=== PATIENT | female | born 1935 | race Caucasian/White ===

== ENCOUNTER 2023-06-02 11:22 | Emergency (ER) | payer MEDICARE, OTHER, SELFPAY ==
[2023-06-02 11:29] VITALS: BP 122/53; PULSE 67; RESP 18; O2SAT 95; BMI 23.5
--- NOTE | 2023-06-02 11:38 | ED.FALL ---
HPI - Fall General Chief Complaint: Fall Stated Complaint: R SIDED PAIN FALL EARLIER THIS WEEK Time Seen by Provider: 06/02/23 11:25 Source: patient and EMS Mode of arrival: EMS Limitations: no limitations History of Present Illness HPI Narrative: 87 yo female with PMH of afib on eliquis, HTN, alzheimer's baseline is alert and oriented to person and place - currently at baseline on Monday lost her balance fell and landed on R buttock no head strike no fall backwards her two daughters were present and witnessed this. No LOC and she was helped up. Since then she cannot use her walker and it hurts to get up and walk on R posterior buttock. No other symptoms. MD complaint: fall Onset (ago): day(s) (4) Fall from: standing Fall witnessed: yes, by family Place fall occurred: home Loss of consciousness: none Prolonged down time: no Symptoms prior to fall: none Context: tripped/slipped Location of injury: pelvis (R buttock) Severity: moderate Quality: dull and aching Associated symptoms (after fall): unable to walk (has a hard time walking and getting up) Related Data Previous Rx's Medication Instructions Recorded lidocaine 5 % topical patch 1 patch topical DAILY #30 ea 06/02/23 oxycodone 5 mg tablet 2.5 mg (1/2 x 5 mg) PO TID PRN 06/02/23 pain #14 tabs Allergies Allergy/AdvReac Type Severity Reaction Status Date / Time No Known Allergies Allergy Unverified 05/14/20 15:28 [No Known Allergies*] Review of Systems Review of Systems: Constitutional : No Fever, No Chills ENT/Mouth : No Ear Pain, No Hoarseness, No sore throat Eyes: No Eye Pain, No Swelling, No Redness, No Foreign Body Cardiovascular : No Chest Pain, No SOB Respiratory : No Cough, No Dyspnea Gastrointestinal : No Nausea, No Vomiting, No Diarrhea, No abdominal Pain Genitourinary : No Dysuria, No Hematuria Musculoskeletal : positive joint pain, No Myalgias, No Joint Swelling, pos back pain Skin : No Skin lacerations, No rash Neuro : No Weakness, No Numbness, No Loss of Consciousness, No Dizziness, No Headache Psych : No Anxiety/Panic, No Depression All other systems reviewed and are negative [facility] Past Medical History Attestation statement: The following information was validated with the patient. Source: obtained from family Medical History HTN (hypertension) Afib Alzheimer's dementia Social History Social History (Updated 06/02/23 @ 11:56 by Alexandra Abbasi DO) Alcohol intake: former Patient Tobacco Use Status: Never used Tobacco Smoked in Last 30 Days: No Use of substances other than those prescribed or required for medical reasons: No Advance Directives: No Advance Directives Information Provided: Yes Physical Exam Vital Signs: Vital Signs: Last Vital Signs Resp 18 06/02/23 11:29 BMI result Body Mass Index 23.5 Appearance: Alert. Oriented X2. No acute distress. Eyes: Pupils equal, round and reactive to light. ENT: Pharynx normal. Atrauamtic Neck: Normal inspection. Neck supple. no midline ttp CVS: Normal heart rate and rhythm. Pulses normal. Respiratory: No respiratory distress. Breath sounds normal. Abdomen: Soft and nontender. Back: no midline ttp R buttock ttp along lower sacrum and ischium has bruise on left buttock small golf ball size no hematoma felt - distal NV intact Skin: Skin warm and dry. Normal skin color. Normal skin turgor. Extremities: No lower extremity edema. No calf ttp Neuro: Oriented X 2 No motor deficit. No sensory deficit. Course Course Course Narrative: unchanged CT scan no acute findings - no cauda equina syndrome, SILT innner thigh. family does not want rehab stable for DC Medications Administered Discontinued Medications Generic Name Dose Route Start Last Admin Trade Name Hilda PRN Reason Stop Dose Admin Acetaminophen 650 mg 06/02/23 15:08 06/02/23 15:17 Acetaminophen 325 Mg Tablet PO 06/02/23 15:09 650 mg ONCE ONE Administration Lidocaine 1 patch 06/02/23 15:47 06/02/23 15:59 Lidocaine 4 % Patch Adh..Patch TRANSDERMA 06/02/23 15:48 1 patch ONCE ONE Administration Protocol Oxycodone HCl 2.5 mg 06/02/23 15:47 06/02/23 15:59 Oxycodone Hcl Immed Release 5 Mg Tablet PO 06/02/23 15:48 2.5 mg ONCE ONE Administration Medical Decision Making Medical Decision Making MDM Narrative: 87 yo female with PMH of afib on eliquis, HTN, alzheimer's baseline is alert and oriented to person and place here with mechanical fall 4 days ago at baseline is on DOAC but witnessed no head strike no vomiting and acting like herself other than pain in R buttock area at this time basic labs, xray of lumbar spine and pelvis possible CT scan if negative. She is NV intact, she is at baseline and not vomiting without head trauma 4 days out so ICH unlikely. She declines pain medications. Differential Diagnosis Differential Diagnoses: The differential diagnosis associated with the presentation includes contusion, sprain, strain, fracture Admission/Observation Consideration of admission/observation: Escalation of care including admission/observation considered refuses rehab, family wants to take her home Lab Data MDM Lab Attestation statement: I reviewed the patient's lab results. 06/02/23 11:47 06/02/23 11:47 Labs: Lab Results 06/02/23 Range/Units 11:47 WBC 7.3 (4.8-10.8) X10*3/uL RBC 5.02 (4.20-5.50) X10*6/uL Hgb 15.1 (12.0-16.0) g/dl Hct 45.0 (37.0-47.0) % MCV 89.6 (80.0-98.0) fL MCH 30.1 (27.0-33.0) pg MCHC 33.6 (31.0-35.0) g/dl RDW 13.3 (11.0-16.0) % Plt Count 169 (160-400) X10*3/uL MPV 9.2 L (9.4-12.3) fL Immature Gran % (Auto) 0.5 H (0.0-0.4) % Neut % (Auto) 74.6 H (45-73) % Lymph % (Auto) 10.6 L (20-40) % Redwood % (Auto) 8.0 (2-11) % Eos % (Auto) 5.6 H (0-4) % Baso % (Auto) 0.7 (0-2) % Lymph # (Auto) 0.8 L (1.2-4.9) X10*3/uL Redwood # (Auto) 0.6 (0.1-1.2) X10*3/uL Eos # (Auto) 0.4 (0.0-0.4) X10*3/uL Baso # (Auto) 0.1 (0.0-0.2) X10*3/uL Abs Immat Gran (auto) 0.04 H (0.00-0.03) X10*3/uL Absolute Neuts (auto) 5.5 (2.0-8.3) x10*3/uL Absolute Nucleated RBC 0.000 (0.0-0.012) X10*3/uL Nucleated RBC % (auto) 0.0 (0.0-0.2) /100WBC PT 19.9 H (11.1-13.3) SEC INR 1.6 H (0.9-1.1) Sodium 140 (135-145) mmol/L Potassium 4.2 (3.3-5.1) mmol/L Chloride 106 (96-108) mmol/L Carbon Dioxide 24 (22-29) mmol/L Anion Gap 14 (12-20) BUN 19 H (9-16) mg/dL Creatinine 0.80 (0.5-1.4) mg/dL Estim Creat Clear Calc 48.1 Estimated GFR > 60 Random Glucose 93 (60-115) mg/dL Calcium 9.3 (8.4-10.2) mg/dL Independent Interpretation I performed an independent interpretation of an: Plain X-Ray Radiology Impression Discussion of test interpretation with radiology: I have reviewed the radiologist's reading. Independent Historian Clinical information obtained from an independent historian. History obtained from or confirmed by: EMS and Other (daughters) Prescription Management I considered prescription management with: Pain Medication Discharge Plan Discharge Clinical Impression: Right buttock pain Patient Disposition: Home, Self-Care Instructions: Musculoskeletal Pain (ED) Additional Instructions: no acute fractures, if she has numbness or weakness with loss of control of bowel or bladder seek immediate medical care. if you need further help please return. stay with adult while on pain medicaitons. take over the counter stool softener while on pain medications PELVIS: Atherosclerotic calcifications nonaneurysmal aorta and iliac arteries. Small caliber inferior vena cava, correlate with volume status. No pathologic lymphadenopathy. Unremarkable urinary bladder. Pelvic phleboliths. Small fat filled umbilical hernia. No free air or free fluid. No pelvic, intramuscular or soft tissue hematomas. Flank and buttock soft tissue stranding, right greater than left. OSSEOUS STRUCTURES: Grade 1 anterolisthesis L4 on L5. Right-sided posterior spur at L3-L4 results in significant compression on the thecal sac. At L4-L5, unroofing of the distal with moderate spinal canal narrowing. L5-S1 disc bulge. Facet hypertrophic changes mild SI sclerosis, left greater than right. Above findings not significantly changed from [address] No fractures or dislocations. Probable left intratrochanteric bone island. Prescriptions: New oxycodone 5 mg tablet 2.5 mg PO TID PRN (Reason: pain) Qty: 14 0RF Rx Instructions: Partial Fill upon patient request. lidocaine 5 % adhesive patch,medicated 1 patch topical DAILY Qty: 30 0RF Rx Instructions: leave on most painful area for up to 12 hrs
--- NOTE | 2023-06-02 16:29 | PC.NURSE ---
Discharge plan reviewed with patient and family who verbalized understanding
== END 2023-06-02 17:02 | disposition home or self-care (01) ==
PROVIDERS: Emergency Provider Emergency Medicine
DX: M53.3 Sacrococcygeal disorders, not elsewhere classified (principal); I10 Essential (primary) hypertension; I48.91 Unspecified atrial fibrillation; G30.9 Alzheimer's disease, unspecified; F02.80 Dementia in other diseases classified elsewhere, unspecified severity, without behavioral disturbance, psychotic disturbance, mood disturbance, and anxiety
CPT/HCPCS: 36415; 72100; 72170; 72192; 80048; 85025; 85610; 99284

== ENCOUNTER 2024-02-26 10:31 | Emergency (ER) | payer MEDICARE, OTHER, SELFPAY ==
[2024-02-26] VITALS (7 sets, daily range): BP systolic 130–177; BP diastolic 48–59; PULSE 58–77; RESP 14–16; TEMP 36.4–36.8; O2SAT 93–96; BMI 25.1
--- NOTE | ~2024-02-26 | XR_ITS ---
EXAMINATION: Right wrist x-ray. CLINICAL INFORMATION: Fell down, right wrist injury and pain COMPARISON: None available. TECHNIQUE: 4 view X-rays of right wrist including right scaphoid view FINDINGS: BONES: Bony structures are intact. Marked sclerotic changes and marginal osteophytosis are seen at the right first carpometacarpal joint. There is no focal bone destruction or periosteal reaction seen. JOINTS: Alignment of joints is normal. There is marked decrease in right first carpometacarpal joint and right second metacarpophalangeal joint space. SOFT TISSUE: Soft tissue is normal. No radiopaque foreign body or abnormal air collection is seen. XR/XR wrist RT w scaphoid IMPRESSION: 1. No acute fracture or dislocation is seen in the right wrist. 2. Marked degenerative changes are seen at the right first carpometacarpal joint and right second metacarpophalangeal joint.
--- NOTE | 2024-02-26 10:45 | ED.GENADULT ---
HPI - General Adult General Chief complaint: Fall Stated complaint: FALL,HANDS/HENRIQUEZ BRUISING,INCR CONFUSION PER EMS Time Seen by Provider: 02/26/24 10:34 Source: EMS Mode of arrival: EMS Limitations: other (dementia) History of Present Illness ED Provider: Dr. Lewis HPI narrative: Patients friend thinks she fell at home. She appears slightly more confused from baseline, she is on eliquist. no evidence of head trauma Onset (ago): unknown Related Data Previous Rx's ?Medication ?Instructions ?Recorded lidocaine 5 % topical patch 1 patch topical DAILY #30 ea 06/02/23 oxycodone 5 mg tablet 2.5 mg (1/2 x 5 mg) PO TID PRN 06/02/23 pain #14 tabs Allergies Allergy/AdvReac Type Severity Reaction Status Date / Time No Known Allergies Allergy Verified 02/26/24 10:45 [No Known Allergies*] Review of Systems Review of Systems: Yes Unobtainable due to mental status Neurologic: Denies Sensory deficit (Neuro) [facility] Past Medical History Medical History HTN (hypertension) Afib Alzheimer's dementia Social History Social History Alcohol intake: former Patient Tobacco Use Status: Never used Tobacco Smoked in Last 30 Days: No Use of substances other than those prescribed or required for medical reasons: No Advance Directives: No Advance Directives Information Provided: Yes Do you have a plan to hurt others: No Plan Physical Exam ED Vital Signs: Vital Signs - 24 hr 02/26/24 10:43 02/26/24 10:47 02/26/24 11:51 Temperature 97.8 F 97.8 F 97.6 F Pulse Rate 64 64 61 Respiratory Rate 14 14 16 Blood Pressure 130/48 L 130/48 L 146/48 H Pulse Oximetry 93 93 94 Oxygen Delivery Method Room Air Room Air Room Air 02/26/24 14:15 02/26/24 15:50 Temperature 98.1 F 98.2 F Pulse Rate 63 59 Respiratory Rate 16 16 Blood Pressure 155/49 H 154/50 H Pulse Oximetry 96 96 Oxygen Delivery Method Room Air Room Air BMI result Body Mass Index 25.1 Const General: healthy appearing Nutritional Appearance: average body habitus Orientation/consciousness: oriented to person Limitations: other limitations (dementia) HENMT Head: Yes normal to inspection Ears: external ears normal General nose exam: Normal external nose present Mouth: Normal oral and palatal mucosa present and oropharynx normal Throat: Yes posterior oropharynx normal Eyes General: appearance normal, both eyes and all related structures Neck Neck: Yes normal visual inspection Chest Chest palpation & inspection: normal inspection of the chest Resp Auscultation: clear to auscultation bilaterally Cardio Jugular venous distension: no JVD Rate: regular rate Rhythm: regular rhythm Heart sounds: S1 normal heart sound present and S2 normal heart sound present GI Inspection: Yes normal to inspection Palpation (GI): Soft to palpation, nontender and No hepatosplenomegaly present Auscultation: normal bowel sounds General: Yes no CVA tenderness Back/Spine/Pelvis Back: no CVA tenderness Skin Other: small abrasions Neuro General: oriented to person Cranial nerves: Yes CN's II-XII intact bilaterally Motor exam (neuro): 5/5 motor strength present throughout Sensory Exam: No Sensory deficit (Neuro) Extrem Other: right wrist with slight tenderness Psych Other: alert and oriented to self only, happy and pleasant Course Reevaluation(s) Reevaluation #1: patient with severe dementia, needs to evaluated by case management for safety Time: 16:33 Reevaluation #2: physician observation started now as patient needs more time to evaluate her living situation and safety Time: 16:34 Medical Decision Making Differential Diagnosis Differential Diagnoses: The differential diagnosis associated with the presentation includes (dementia, uti, wrist fracture) Admission/Observation Consideration of admission/observation: Escalation of care including admission/observation considered Consult Healthcare Provider Management of the patient was discussed with: Advertising Consultant (Case management) Lab Data 02/26/24 11:08 02/26/24 11:08 Labs: Lab Results 02/26/24 02/26/24 Range/Units 11:08 11:41 WBC 9.2 (4.8-10.8) X10*3/uL RBC 4.13 L (4.20-5.50) X10*6/uL Hgb 12.6 (12.0-16.0) g/dl Hct 38.0 (37.0-47.0) % MCV 92.0 (80.0-98.0) fL MCH 30.5 (27.0-33.0) pg MCHC 33.2 (31.0-35.0) g/dl RDW 13.5 (11.0-16.0) % Plt Count 188 (160-400) X10*3/uL MPV 9.1 L (9.4-12.3) fL Immature Gran % (Auto) 0.4 (0.0-0.4) % Neut % (Auto) 77.4 H (45-73) % Lymph % (Auto) 9.5 L (20-40) % Greene % (Auto) 7.7 (2-11) % Eos % (Auto) 4.3 H (0-4) % Baso % (Auto) 0.7 (0-2) % Lymph # (Auto) 0.9 L (1.2-4.9) X10*3/uL Greene # (Auto) 0.7 (0.1-1.2) X10*3/uL Eos # (Auto) 0.4 (0.0-0.4) X10*3/uL Baso # (Auto) 0.1 (0.0-0.2) X10*3/uL Abs Immat Gran (auto) 0.04 H (0.00-0.03) X10*3/uL Absolute Neuts (auto) 7.1 (2.0-8.3) x10*3/uL Absolute Nucleated RBC 0.000 (0.0-0.012) X10*3/uL Nucleated RBC % (auto) 0.0 (0.0-0.2) /100WBC Sodium 139 (135-145) mmol/L Potassium 3.7 (3.3-5.1) mmol/L Chloride 107 (96-108) mmol/L Carbon Dioxide 22 (22-29) mmol/L Anion Gap 14 (12-20) BUN 20 H (9-16) mg/dL Creatinine 0.86 (0.5-1.4) mg/dL Estim Creat Clear Calc 42.3 Estimated GFR > 60 Random Glucose 134 H (60-115) mg/dL Calcium 9.0 (8.4-10.2) mg/dL Urine Color Yellow Urine Appearance Clear Urine pH 5.5 (5.0-9.0) Ur Specific Gerton 1.025 (1.005-1.025) Urine Protein Negative (Neg-Trace) mg/dL Urine Glucose (UA) Negative (Negative) mg/dL Urine Ketones Negative (Negative) mg/dL Urine Blood Negative (Negative) Urine Nitrite Negative (Negative) Ur Leukocyte Esterase Negative (Negative) Independent Interpretation I performed an independent interpretation of an: Plain X-Ray (no wrist fracture) Independent Historian Clinical information obtained from an independent historian. History obtained from or confirmed by: Friend and EMS Tests considered The following testing was considered but not selected: Ct of brain considered but patient with known dementia and no head injury Prescription Management I considered prescription management with: Antibiotic (no evidence of UTI) Discharge Plan Discharge Clinical Impression: Dementia Patient Disposition: Still a Patient Prescriptions: No Action oxycodone 5 mg tablet 2.5 mg PO TID PRN (Reason: pain) Qty: 14 0RF Rx Instructions: Partial Fill upon patient request. lidocaine 5 % adhesive patch,medicated 1 patch topical DAILY Qty: 30 0RF Rx Instructions: leave on most painful area for up to 12 hrs Print Language: Angolan
[2024-02-26 11:13] LABS: MANUAL DIFF FLAG NO
[2024-02-26 11:14] LABS: Basophils Absolute Auto 0.1 X10*3/uL (0.0-0.2); Basophils Percent Auto 0.7 % (0-2); Eosinophils Absolute Auto 0.4 X10*3/uL (0.0-0.4); Eosinophils Percent Auto 4.3 % (0-4); Hemoglobin 12.6 g/dl (12.0-16.0); Imm Gran Abs Auto 0.04 X10*3/uL (0.00-0.03); Imm Gran Pct Auto 0.4 % (0.0-0.4); Lymphocytes Absolute Auto 0.9 X10*3/uL (1.2-4.9); Lymphocytes Percent Auto 9.5 % (20-40); Mean Corpuscular HGB Conc 33.2 g/dl (31.0-35.0); Mean Corpuscular Hemoglobin 30.5 pg (27.0-33.0); Mean Platelet Volume 9.1 fL (9.4-12.3); Monocytes Absolute Auto 0.7 X10*3/uL (0.1-1.2); Monocytes Percent Auto 7.7 % (2-11); Neutrophils Absolute Auto 7.1 x10*3/uL (2.0-8.3); Neutrophils Percent Auto 77.4 % (45-73); Platelet Count 188 X10*3/uL (160-400); Red Blood Count 4.13 X10*6/uL (4.20-5.50); Red Cell Distribution Width 13.5 % (11.0-16.0); White Blood Count 9.2 X10*3/uL (4.8-10.8)
[2024-02-26 11:28] LABS: Anion Gap 14 (12-20); Blood Urea Nitrogen 20 mg/dL (9-16); Carbon Dioxide 22 mmol/L (22-29); Chloride 107 mmol/L (96-108); Creatinine Clr Calc Pharmacy 42.3; Estimated Glomerular Filt Rate > 60; Glucose Random 134 mg/dL (60-115); Potassium 3.7 mmol/L (3.3-5.1); Sodium 139 mmol/L (135-145)
[2024-02-26 11:48] LABS: Appearance Urine Clear; Color Urine Yellow; Glucose Urine UA Negative (Negative); Leukocyte Esterase Urine Negative (Negative); Nitrite Urine Negative (Negative); PH 5.5 (5.0-9.0); Specific Gravity - Urine 1.025 (1.005-1.025); Urine Blood Negative (Negative); Urine Ketones Negative (Negative); Urine Protein Negative (Neg-Trace)
--- NOTE | 2024-02-26 18:02 | MHC.CM.ED ---
CM met with patient and her daughters. Pt is alert to person, place and situation. Knows her daughters, who are present. Pt does have a diagnosis of dementia. Pt lives alone. She uses microwave and light cooking. Most of her meals are prepared food or prepared by continuous pickling line pickler helper. Pt has a life alert and walker, which she uses intermittently. Pt has a shower chair that she does not use. Daughter reports that patient occasionally forgets meds. They are in a blister pack. Pt has LT insurance. Pt has private pay services from [employer]. Pt has [employer] 5 hours on Monday and Monday and 2 hours on Monday, Monday and . She has no weekend services. Daughters both live in [place]. Makenzie ([phone]) and Carolina ([phone]). PCP is Luisa Scott NP at the [facility] in [place]. Daughter will arrange additional services at home, because the goal is for the patient to stay home. Pt and daughters are agreeable to [facility] referral for home safety evaluation, medication management, chronic disease management and PT evaluation. They have used [facility] in the past. Will place referral with [facility]. They are not agreeable to STR. Daughters will stay with patient tonight. They understand that additional services may be necessary due to her dementia. Requested and given a script for a rollator walker. Discussed with patient importance of wearing her life alert at all times for safety. Dr. Aby Marquez and primary RN aware of above and agreeable to discharge with daughters. Daughters will transport patient home.
--- NOTE | 2024-02-26 18:27 | MHC.EDTECH ---
PT REFUSED MEAL TRAY PRIOR TO d/c
== END 2024-02-26 18:41 | disposition home or self-care (01) ==
PROVIDERS: Emergency Provider Emergency Medicine
DX: F03.90 Unspecified dementia, unspecified severity, without behavioral disturbance, psychotic disturbance, mood disturbance, and anxiety (principal); M25.531 Pain in right wrist; Z79.899 Other long term (current) drug therapy
CPT/HCPCS: 36415; 73110; 80048; 81003; 85025; 99283; 99284

== ENCOUNTER 2024-08-23 08:18 | Inpatient (IN) | payer MEDICARE, OTHER, SELFPAY ==
--- NOTE | ~2024-08-23 | CT_ITS ---
EXAMINATION: CT LEFT HAND WITH CONTRAST CLINICAL INFORMATION: CAD bite to first MCP region. Rule out abscess or osteomyelitis. COMPARISON: None available. TECHNIQUE: Spiral CT of the left hand and wrist was performed in axial plane after the administration of 85 cc Omnipaque 350 IV contrast. Sagittal, coronal, and thin section axial reformatted images were constructed from the axial data set. This CT examination was performed using dose optimization techniques as appropriate, variously including the following: *Automated exposure control *Adjustment of mA and/or kV according to patient size (this includes techniques or standardized protocols for targeted exams where dose is matched to indication/reason for exam; i.e. extremities or head) *Use of iterative reconstruction technique DLP: 98 mGy-cm FINDINGS: Evaluation is somewhat limited due to multiplanar reformats being somewhat obliqued. Soft tissue swelling of the thenar eminence just subjacent to the first MCP joint. Focus of enhancement measures approximately 2.2 cm in AP, by 1.3 cm and transverse, by 1.6 cm in craniocaudal dimension (series 8, image 78; series 9, image 69; series 10, image 96). There appears to be a tiny amount of fluid within the first MCP joint, suspicious for joint effusion and possible septic arthropathy. Effusion is best seen series 8, image 82. There is a focus of focal osteopenia in the first metacarpal head (series 9, image 75), which could represent early changes of osteomyelitis. No additional bony erosions or permeative changes. There are degenerative changes in the first MCP joint, and also involving the second and third MCP joints. Severe degenerative arthropathy is present at the first CMC joint with lesser degree seen at the STT joints. Carpal bones intact and normally aligned. There is mild chondrocalcinosis of the TFCC, findings suggesting CPPD. Soft tissues demonstrate mild soft tissue swelling in the region of enhancement although there is no definite drainable abscess present. CT/CT hand LT w IV con IMPRESSION: 1. Focus of focal osteopenia involving the dorsomedial first metatarsal head, a finding which could represent early changes of osteomyelitis. No permeative bony change. There is a small joint effusion present in the first MCP joint, which could possibly be amenable to aspiration for culture and sensitivities. 2. Subjacent nodular focus of soft tissue enhancement of the palmar aspect abutting the first MCP joint in the thenar eminence as detailed, measuring 2.2 x 1.3 x 1.6 cm, consistent with infectious phlegmonous changes. No formed abscess. 3. Chondrocalcinosis of the wrist suggesting CPPD. 4. 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 Electronically signed by: Mike Torres MD 08/23/2024 02:07 PM [facility]
--- OUTSIDE RECORDS SUMMARY | 2024-08-23 08:37 | XMS_ITS | Continuity of Care Document ---
Author Organization [facility] Address [address] [place] [address]- Support Name Relationship Address Phone JERMAINE, EMILIE Personal Relationship Unknown Unav ailable JERMAINE, EMILIE Personal Relationship Unknown Unav ailable JERMAINE, EMILIE Personal Relationship Unknown Unav ailable JERMAINE, EMILIE Personal Relationship Unknown Unav ailable JERMAINE, EMILIE Personal Relationship Unknown Unav ailable JERMAINE, CARLOS child Unknown Unavailable JERMAINE, EMILIE Personal Relationship Unknown Unav ailable JERMAINE, EMILIE Personal Relationship Unknown Unav ailable JERMAINE, EMILIE Personal Relationship Unknown Unav ailable JERMAINE, EMILIE Personal Relationship Unknown Unav ailable JERMAINE, EMILIE Personal Relationship Unknown Unav ailable JERMAINE, EMILIE Personal Relationship Unknown Unav ailable JERMAINE, EMILIE Personal Relationship Unknown Unav ailable JERMAINE, MAR child Unknown Unavailable JERMAINE, CARLOS child Unknown Unavailable Jermaine, Mar daughter Unknown Unavailable JERMAINE, MAR child Unknown Unavailable JERMAINE, EMILIE spouse Unknown Unavailable JERMAINE, EMILIE Personal Relationship Unknown Unav ailable JERMAINE, EMILIE Personal Relationship Unknown Unav ailable JERMAINE, EMILIE Personal Relationship Unknown Unav ailable JERMAINE, EMILIE Personal Relationship Unknown Unav ailable JERMAINE, EMILIE Personal Relationship Unknown Unav ailable JERMAINE, EMILIE Personal Relationship Unknown Unav ailable JERMAINE, EMILIE spouse Unknown Unavailable JERMAINE, EMILIE Personal Relationship Unknown Unav ailable JERMAINE, EMILIE Personal Relationship Unknown Unav ailable JERMAINE, EMILIE Personal Relationship Unknown Unav ailable JERMAINE, EMILIE Personal Relationship Unknown Unav ailable JERMAINE, EMILIE Personal Relationship Unknown Unav ailable JERMAINE, EMILIE Personal Relationship Unknown Unav ailable JERMAINE, EMILIE Personal Relationship Unknown Unav ailable JERMAINE, EMILIE Personal Relationship Unknown Unav ailable EMILIE GOLDSMITH Personal Relationship Unknown Unav ailable EMILIE GOLDSMITH Personal Relationship Unknown Unav ailable Care Team Providers Care Growth Media Mixer Mushroom Name Role Phone Tyler Luisa CROCKER Primary Care Physician Encounter [facility] Date(s): 06/28/24 - 07/28/24 [facility] [address] [place] [address]- Encounter Type: Triage Allergies, Adverse Reactions, Alerts No Known Allergies Immunizations Given and Recorded Vaccine Date Status Refusal Reason influenza virus vaccine, inactivated 1 06/29/23 Gi elaine influenza virus vaccine, inactivated 06/01/22 Navid rded influenza virus vaccine, inactivated 09/16/21 Give n influenza virus vaccine, inactivated 06/08/20 Navid rded influenza virus vaccine, inactivated 06/14/19 Navid rded influenza virus vaccine, inactivated 2 05/04/18 Re corded influenza virus vaccine, inactivated 3 05/29/17 Gi elaine influenza virus vaccine, inactivated 4 06/03/16 Re corded influenza virus vaccine, inactivated 06/16/15 Give n influenza virus vaccine, inactivated 06/03/14 Give n influenza virus vaccine, inactivated 5 05/21/13 Gi elaine influenza virus vaccine, inactivated 6 07/08/06 Gi elaine pneumococcal 20-valent conjugate vaccine 7 03/21/23 Given [id number] 12y+ bivalent booster vax 06/01/22 Recorded [id number] 12y+ bivalent booster vax 05/28/22 Recorded Influenza Virus Vaccine (oldterm) 05/28/22 Recorde d Influenza Virus Vaccine (oldterm) 8 06/06/20 Recor ded Influenza Virus Vaccine (oldterm) 06/17/19 Recorde d Influenza Virus Vaccine (oldterm) 06/04/08 Given tetanus/diphtheria/pertussis, acel(Tdap) 05/26/22 Given SARS-CoV-2 mRNA ([id number]-bvomg) vax 9 03/16/22 Given SARS-CoV-2 (COVID-19) mRNA BNT-162b2 vac 08/04/21 Recorded SARS-CoV-2 (COVID-19) mRNA BNT-162b2 vac 11/02/20 Given SARS-CoV-2 (COVID-19) mRNA BNT-162b2 vac 10/12/20 Given zoster vaccine, inactivated 12/03/18 Recorded zoster vaccine, inactivated 06/26/18 Recorded zoster vaccine, inactivated 05/10/18 Recorded pneumococcal 13-valent vaccine 02/03/15 Given Fluzone Preservative-Free (oldterm) 05/08/12 Given Tet/diphth/pertussis, acel (oldterm) 01/31/12 Give n Fluarix (oldterm) 10 06/01/11 Given FluLaval (oldterm) 11 06/02/10 Given Influenza Inactive (IM) (oldterm) 05/15/09 Given Influenza Inactive (IM) (oldterm) 06/14/07 Given Zostavax (oldterm) 01/14/09 Given tetanus-diphtheria toxoids (Td) 12/27/01 Given Pneumococcal Vacc (oldterm) 10/26/01 Given 1Result Comment: [id number] Checklist completed 2Result Comment: [facility]05/08/2018] [facility] 3Result Comment: [05/29/2017] [facility] [id number] 4Result Comment: [06/06/2016] [facility] 5Admin Note[facility] 6Admin Note: GIVEN IN [facility] 7Result Comment: [id number] 8Result Comment: [facility] 9Result Comment: [facility]# [id number] 10Admin Note: [facility] 11Admin Note: [facility] VIS [id number] given Medications Daily Hemalatha oral tablet 1 tablet, By Mouth, Daily, # 90 tablet, 1 Refills, Maintenance, 04/04/24 7:52:00 AM EDT, [facility] # [facility], 90, TAKE ONE TABLET BY MOUTH EVERY DAY, 162.56, cm, 01/09/24 9:34:00 EDT, Height Start Date: 04/04/24 Status: Ordered Quantity: 90.0 Unit: tablet Repeat number: 1 donepezil 10 mg oral tablet 1, tablet, By Mouth, Daily at bedtime, # 30 tablet, Refills 5, Tot. Refills 5, Maintenance, 03/07/2410:42:00 AM EDT, Route to Pharmacy Electronically, [facility] # [facility], 162.56, cm, 01/09/24 9:34:00 EDT, Height Start Date: 03/07/24 Status: Ordered Quantity: 30.0 Unit: tablet Repeat number: 6 Eliquis 5 mg oral tablet 1 tablet = 5 mg, By Mouth, 2 times a day, # 56 tablet, 0 Refills, Maintenance, 06/28/24 11:01:00 AM EDT, [facility] # [facility], 162.56, cm, 01/09/24 9:34:00 EDT, Height Start Date: 06/28/24 Stop Date: 07/26/24 Status: Ordered Quantity: 56.0 Unit: tablet Repeat number: 1 memantine 10 mg oral tablet 1 tablet, By Mouth, 2 times a day, # 60 tablet, 5 Refills, Maintenance, 03/07/24 10:42:00 AM EDT, [facility] # [facility], 162.56, cm, 01/09/24 9:34:00 EDT, Height Start Date: 03/07/24 Status: Ordered Quantity: 60.0 Unit: tablet Repeat number: 6 Metoprolol Tartrate 25 mg oral tablet 1 tablet, By Mouth, 2 times a day, # 56 tablet, 5 Refills, Maintenance, 06/27/24 2:47:00 PM EDT, [facility] # [facility], 162.56, cm, 01/09/24 9:34:00 EDT, Height Start Date: 06/27/24 Status: Ordered Quantity: 56.0 Unit: tablet Repeat number: 1 omeprazole 20 mg oral enteric coated capsule 1 capsule, By Mouth, Daily, # 28 capsule, 5 Refills, Maintenance, 02/07/24 4:04:00 AM EDT, [facility] # [facility], 162.56, cm, 01/09/24 9:34:00 EDT, Height Start Date: 02/07/24 Status: Ordered Quantity: 28.0 Unit: capsule Repeat number: 1 OMEPRAZOLE 20MG CPDR OMEPRAZOLE 20MG CPDR, 1, capsule, By Mouth, Daily, # 28 capsule, 5 Refills, Maintenance, 07/23/24 3:53:00 PM EST, 162.56, cm, 07/11/24 11:36:00 EST, Height Start Date: 07/23/24 Status: Ordered Quantity: 28.0 Unit: capsule Repeat number: 1 Rollater walker Rollater walker, See Instructions, # 1 each, Refills 0, Tot. Refills 0, Maintenance, Unsteady gait,frequent falls Length of need: Lifetime Height: 5'4 Weight: 151 lbs, 01/26/24 1:18:00 PM EDT, Supply Start Date: 01/26/24 Status: Ordered Quantity: 1.0 Unit: each Repeat number: 1 sertraline 100 mg oral tablet 1 tablet = 100 mg, By Mouth, Daily, Take in addition to 50mg tab for a total of 150mg/day, # 90 tablet, 0 Refills, Maintenance, 05/31/24 8:23:00 AM EDT, Tablet, [facility] # [facility], 162.56, cm, 01/09/24 9:34:00 EDT, Height Start Date: 05/31/24 Stop Date: 08/29/24 Status: Ordered Quantity: 90.0 Unit: tablet Repeat number: 1 sertraline 50 mg oral tablet 1 tablet = 50 mg, By Mouth, Daily, Take in addition to 100mg tab for a total of 150mg/day, # 90 tablet, 0 Refills, Maintenance, 05/31/24 8:23:00 AM EDT, Tablet, [facility] # [facility], 162.56, cm, 01/09/24 9:34:00 EDT, Height Start Date: 05/31/24 Status: Ordered Quantity: 90.0 Unit: tablet Repeat number: 1 simvastatin 20 mg oral tablet 1, tablet, By Mouth, Daily at bedtime, # 28 tablet, Refills 5, Maintenance, 06/27/24 2:46:00 PM EDT, Route to Pharmacy Electronically, [facility] # [facility], 162.56, cm, 01/09/24 9:34:00 EDT, Height Start Date: 06/27/24 Status: Ordered Quantity: 28.0 Unit: tablet Repeat number: 1 valsartan 80 mg oral tablet 1, tablet, By Mouth, Daily, # 28 tablet, Refills 5, Maintenance, 06/27/24 2:46:00 PM EDT, Route to Pharmacy Electronically, [facility] # [facility], 162.56, cm, 01/09/24 9:34:00 EDT, Height Start Date: 06/27/24 Status: Ordered Quantity: 28.0 Unit: tablet Repeat number: 1 Problem List Condition Confirmation Course Effective Dates Status Health Status Informant Adenomatous polyp Confirmed Active Alkaline phosphatase raised Confirmed 11/20/09 Active Alzheimer's disease (per neurology) Confirmed 08/12/20 Active Anxiety and depression Confirmed Active Arthritis neck and feet Confirmed Active Cervical arthritis Confirmed Active Chronic headache Confirmed Active Chronic kidney disease (CKD), stage G3a Confirmed Active Diverticulosis sigmoid Confirmed Active FH: Colon cancer in mother and brother Confirmed Active GERD EGD 2006 Confirmed 06/29/08 Active Hypercholesterolemia Confirmed Active Hypertension Confirmed Active Prediabetes Confirmed Active Anticoagulant long-term use Confirmed Active Abnormal MRI of head Confirmed Active Osteoarthritis of knee Confirmed Active Osteopenia Confirmed Active AF (paroxysmal atrial fibrillation) [id number] score 4 Confirmed Active Abnormal plasma protein test;faint IGM Confirmed Active Thyroid nodules, bilateral Confirmed Active Social History Social History Type Response Smoking Status Never smoker entered on: 01/30/14 Sex Sex Representation Female (finding) Patient Care team information Care Team Personnel Name: Luisa Scott NP Position: S PCO Associate Professional Member Role: PCP [address]: [address] [place] [address]- Telecom: Care Team Related Persons Name: MAR GOLDSMITH Name: MAR GOLDSMITH Name: Mar Goldsmith Name: EMILIE GOLDSMITH Name: CARLOS GOLDSMITH Name: CARLOS GOLDSMITH Insurance Providers Guarantor name: RENUKA GOLDSMITH Health Plan Information #: 1 Payer: MEDICARE PART B OUTPT Member Number: NA Policy Number: NA Group Number: NA
--- OUTSIDE RECORDS SUMMARY | 2024-08-23 08:37 | XMS_ITS ---
Author Organization [facility] juan DanielsLeeds Address [address] [place] [address] Care Team Providers Care Commercial Energy Rater Name Role Phone Tyler Luisa GRIFFITH Primary Care Provider Unavail able Nena Lora Unavailable [phone] Allergies No Known Allergies REASON FOR VISIT At Risk Footcare, Painful Nail(s) aggrevated by shoes and causing difficulty standing/walking, Wart(s) Medications Medication SIG (Take, Route, Frequency, Duration) Notes Start Date End Date Status Triamterene-HCTZ 37.5-25 MG 1 tablet in the morning Orally Once a day for 30 day(s) Not-Taking Norvasc 2.5 MG 1 tablet Orally Once a day for 30 day(s) Not-Taking Eliquis 5 MG as directed Orally Active Metoprolol Tartrate 25 MG 1 tablet with food Orally Twice a day for 30 day(s) Active Zocor 20 MG 1 tablet in the even ing Orally Once a day Active Alendronate Sodium 70 MG 1 tablet Orally Once a week for 30 day(s) Active Diovan 80 MG 1 tablet Orally Once a day Active Omeprazole 20 MG 1 capsule Orally Onc e a day for 30 day(s) Active Social History Tobacco Use: Social History Observation Description Date Details (start date - stop date) Never Smoker NA - NA Tobacco Use/Smoking Question Answer Notes Are you a: nonsmoker Additional Findings: Tobacco Non-User Current no n-smoker Alcohol Screen Question Answer Notes Did you have a drink containing alcohol in the p ast year? No Points 0 Interpretation Negative Tobacco use other than smoking: Question Answer Notes Are you an other tobacco user? No Vital Signs Height 5 ft 3 in in 07/12/2024 Weight 139 lbs 07/12/2024 BMI 24.62 kg/m2 07/12/2024 Blood pressure systolic 120 mm Hg 07/12/20 24 Blood pressure diastolic 80 mm Hg 024 Encounters Encounter Location Date Provider Diagnosis [facility] [address] [address] 07/12/2024 Nena Christinesuzy Pain in right foot M79.671 ; Plantar wart B07.0 ; Pain in left foot M79.672 ; Tinea unguium B35.1 ; Pain in left toe(s) M79.675 ; Pain in right toe(s) M79.674 and Unspecified atherosclerosis of [place] arteries of extremities, bilateral legs I70.203 Assessments Encounter Date Diagnosis (ICD Code) Assessment Notes Treatment Notes Treatment Clinical Notes Section Notes 07/12/2024 Pain in right foot (ICD-10 - M79.671) 07/12/2024 Plantar wart (ICD-10 - B07.0) 07/12/2024 Pain in left foot (ICD-10 - M79.672) 07/12/2024 Tinea unguium (ICD-10 - B35.1) 07/12/2024 Pain in left toe(s) (ICD-10 - M79.675) 07/12/2024 Pain in right toe(s) (ICD-10 - M79.674) 07/12/2024 Unspecified atherosclerosis of [place] arteries of extremities, bilateral legs (ICD-10 - I70.203) Plan Of Treatment Next Appt Details Follow Up: 3 Months, Reason: Provider Name:Nena Doll Christine suzy, 10/18/2024 12:30:00 PM, [address] [place] [address], [id number], Procedure Notes * Category Sub-Category Detail Notes Wart Treatment Procedure Verrucae(s) were debrided to pin-point bleeding margins with sterile surgical blade, silver nitrate chemocautery applied, recomm. immune-boosting meds such as zinc, recomm. follow up with topical chemosurgical agents, Pt defers any other forms of tx (67423), CIRCULATION: Any more invasive procedure to wart [...] as necessary. Patient chooses, no pharmaceutical tx (02674) Keratoma Treatment Parring or Cutting o f Benign Hyperkeratotic Lesion(s) 94469 ( >4 Lesions) - The Benign hyperkeratotic lesions, as described above were pared, and/or cut utilizing a sterile #15 blade, tissue nippers, and/or dremel, Q8 Progress Notes * Ainsley DEAN RDOB: (88 yo F)Acc No.[id number]:07/12/2024 Progress Note Patient:?Anisley DEAN R Provider:?Nena Lora DPM :1935???Age:88 Y???Sex:Female D ate:07/12/2024 Address:[address] [place] [id number] Pcp:NACHO Hamlin Subjective: * Chief Complaints: * ???At Risk FootcarePainful N ail(s) aggrevated by shoes and causing difficulty standing/walkingWart(s) * HPI: ???At Risk footcare:?Pt States Last PCP Visit:?Date?07/11/2024 ???Skin problems:?Pt States PCP Visit: ?DATE?07/01/2024 * ROS:?General/Constitutional:?Nausea?denies.?Vomiting?denies.?Hunger Thirst?denies.?Loss appetite?denies.?Chills?denies.?Fatigue?denies.?Fever?denies.?Night Sweats?denies.?Unexplained weight loss?denies.?Unexplained weight gain?denies.?HEENTM:?Dentures?denies.?Dizziness?denies.?Glasses/contacts?denies.?Retinopathy?de nies.?Blurred/double vision?denies.?TMJ?denies.?Discharge/drainage?denies.?Implants?denies.?Sore throat?denies.?Dental implants?denies.?Hard of hearing ?denies.?Difficulty chewing/swallowing/speaking?denies.?Nose bleeds?denies.?Sore mouth?denies.?Respiratory:?On Oxygen?denies.?Pneumonia/pleurisy?denies.?Bronchitis?denies.?Emphysema?denies.?C oughing?denies.?Cough blood?denies.?Shortness of breath?denies.?Wheezing?denies.?Cardiovascular:?Pacemaker?denies.?MVP?denies.?WPW?denies.?CHF?denies.?Heart attack?denies.?Septal defect?denies.?Rapid beat?denies.?Chest pain ?denies.?Atrial Fib.?denies.?Murmur/Palpitations?denies.?Gastrointestinal:?Hemorrhoids?denies.?Stomach/Abdominal pain?denies.?Dark blood stool?denies.?Irritable bowel ?denies.?Constipation?denies.?Diarrhea?denies.?Hematology:?Swelling?denies.?Clots?denies.?Varicose Veins?denies.?Bruising?denies.?Bleeding problem?denies.?Genitourinary:?Blood urine?denies.?Frequent/Painfu/urination/bladder control?denies.?Kidney stones?denies.?Infection (UTI)?denies.?Nephropathy?denies.?sex trans dis (STD)?denies.?Prostate?denies.?Musculoskeletal:?Hammertoes?denies.?Bunions?denies.?Back Pain?denies.?Muscle Cramps/ Resting?denies.?Muscle cramps / walking?denies.?Generalized aches and pains?denies.?Weakness?denies.?Integ.:?Brady?denies.?Scars?denies.?Corns/calluses?admits.?Ingrown nails?denies.?Painful nails?denies.?Open Sores?denies.?Rashes?denies.?Neurologic:?Difficulty sleeping?denies.?Brain disorder?denies.?Numbness?denies.?Balance trouble?denies.?Confusion?denies.?Fainting/blackouts?denies.?Tingling?denies.?Tr emors?denies.? * Medical History:? * Surgical History:?hysterecto my 1981 * Hospitalization/Major Diagno stic Procedure:?[facility] [place] - feet swelling, blood clot left leg 06/2018 * Family History:?Mother: dece ased, diagnosed with Other malignant neoplasm of unspecified site, Unspecified essential hypertension.?Father: , diagnosed with Unspecified essential hypertension, Unspecified cerebral artery occlusion with cerebral infarction.?Siblings: heart attack, high blood pressure.? * Social History:?Tobacco Use:?Tobacco Use/Smoking?Are you a:?nonsmoker ?Additional Findings: Tobacco Non-User?Current non-smoker ?Tobacco use other than smoking?Are you an other tobacco user??No ???Drugs/Alcohol:?Drugs?Have you used drugs other than those for medical reasons in the past 12 months??No ?Alcohol Screen?Did you have a drink containing alcohol in the past year??No ?Points?0 ?Interpretation?Negative ???Miscellaneous:?Caffeine: yes, soda occasional. ?Children: yes, 2. ?Exercise: yes, occasional, walking, stretching. ?Marital status: . ?Occupation: retired book keeper. * Medications:?TakingOmeprazol e 20 MG Capsule Delayed Release 1 capsule Orally Once a day Diovan 80 MG Tablet 1 tablet Orally Once a day Alendronate Sodium 70 MG Tablet 1 tablet Orally Once a week Zocor 20 MG Tablet 1 tablet in the evening Orally Once a day Metoprolol Tartrate 25 MG Tablet 1 tablet with food Orally Twice a day Eliquis 5 MG Tablet as directed Orally Taking Omeprazole 20 MG Capsule Delayed Release 1 capsule Orally Once a day Taking Diovan 80 MG Tablet 1 tablet Orally Once a day Taking Alendronate Sodium 70 MG Tablet 1 tablet Orally Once a week Taking Zocor 20 MG Tablet 1 tablet in the evening Orally Once a day Taking Metoprolol Tartrate 25 MG Tablet 1 tablet with food Orally Twice a day Taking Eliquis 5 MG Tablet as directed Orally Not-Taking/PRNNorvasc 2.5 MG Tablet 1 tablet Orally Once a day Triamterene-HCTZ 37.5-25 MG Tablet 1 tablet in the morning Orally Once a day Medication List reviewed and reconciled with the patientNot-Taking/PRN Norvasc 2.5 MG Tablet 1 tablet Orally Once a day Not-Taking/PRN Triamterene-HCTZ 37.5-25 MG Tablet 1 tablet in the morning Orally Once a day Medication List reviewed and reconciled with the patient * Allergies:?N.K.D.A.yes[Aller gies Verified] Objective: * Vitals:?Ht: 5 ft 3 in, Wt: 1 39, BMI: 24.62, Shoe size: 7, BP: 120/80 mm Hg, Wt- k.05 kg. * Examination: ???Vascular: ?DP PULSES(B):?0/4, B/L.?PT PULSES(B):?0/4, B/L.?CAPILLARY FILL TIME:?delayed, all digits, B/L.?TROPHIC CONDITION-TEXTURE/ELASTICITY/TURGOR/HAIR GROWTH(B):?decreased, B/L.?TEMPERTURE GRADIENT(C):?decreased, cool to cool, proximal to distal, B/L.?PIGMENTATION:?pale, B/L.?EDEMA(C):?1/4, B/L.?Nails: ?NAILS are:?Elongated, overgrown, dystrophic, lytic, greater than 3mm thick, discolored and friable with crumbly malodorous subungual debris, with pain on palpation , 1-5 B/L.?Dermatologic: ?SKIN FINDINGS:?Skin exam reveals Keratotic lesion(s) located at , TA, T1, T5, T6, T8, SUB MTH (s), 1, B/L .?VERRUCA:?reveals Multiple ( 2), multi-loculated , mosaic, round, raised, flat-topped, petechial bleeding papulae(s), with cauliflower appearance and interrruption of skin lines, with pain to lateral compression, and size estimated at 3mm diameter,plantar Forefoot,B/L.?Neurological: ?TINEL'S COMPRESSION:? Negative tarsal tunnel, kane pedis, and medial calcaneal nerves.? Assessment: * Assessment: 1.?Pain in right foot - M79. 671???2.?Plantar wart - B07.0 (Primary)???3.?Pain in left foot - M79.672???4.?Tinea unguium - B35.1???5.?Pain in left toe(s) - M79.675???6.?Pain in right toe(s) - M79.674???7.?Unspecified atherosclerosis of [place] arteries of extremities, bilateral legs - I70.203??? Plan: * Treatment: * Procedures:?Debride Nail 6-10:?Nail debridement?Nail debridement performed extensively to reduce/remove overall nail length and girth, subungual debris, and necrotic tissue, by manual and electrical means with use of a nail nipper and/or dremel, to more viable healthy nail plate or bed tissue 6-10. Silver nitrate used for any petechial bleeding as necessary. Patient chooses, no pharmaceutical tx (27908).?Keratoma Treatment:?Parring or Cutting of Benign Hyperkeratotic Lesion(s)?67759 ( >4 Lesions) - The Benign hyperkeratotic lesions, as described above were pared, and/or cut utilizing a sterile #15 blade, tissue nippers, and/or dremel, Q8.?Wart Treatment:?Procedure?Verrucae(s) were debrided to pin-point bleeding margins with sterile surgical blade, silver nitrate chemocautery applied, recomm. immune-boosting meds such as zinc, recomm. follow up with topical chemosurgical agents, Pt defers any other forms of tx (51649), CIRCULATION: Any more invasive procedure to wart deferred due to circulation risk.? * Procedure Codes:?12275 Wart Destruction, 1-14, Modifiers: XS 94177 DEBRIDE NAIL, 6 OR MORE, Modifiers: XS 84276 TRIM SKIN LESIONS, OVER 4, Modifiers: XS , Q8 * Follow Up:?3 Months * Images: * Sign off status: Completed true * Provider:?Nena Lora, MICHAEL Date:? Generated for Ha foy/Hiro/Soilaitting on:?08/23/2024 08:37 AM EST History and Physical Notes * HPI (History of Present Illness) Category Sub-Category Detail Notes Category Not es Skin problems Pt States PCP Visit: DATE: 07/01/2024 At Risk footcare Pt States Last PCP Visit: Date: Examination Category Sub-Category Detail Notes Category Not es Neurological TINEL'S COMPRESSION: Negative ta rsal tunnel, kane pedis, and medial calcaneal nerves Dermatologic SKIN FINDINGS: Skin exam reveal s Keratotic lesion(s) located at , TA, T1, T5, T6, T8, SUB MTH (s), 1, B/L VERRUCA: reveals Multiple ( 2 ), multi-loculated , mosaic, round, raised, flat- topped, petechial bleeding papulae(s), with cauliflower appearance and interrruption of skin lines, with pain to lateral compression, and size estimated at 3mm diameter,plantar Forefoot,B/L Vascular DP PULSES (B): 0/4, B/L PT [...]
--- OUTSIDE RECORDS SUMMARY | 2024-08-23 08:37 | XMS_ITS | Continuity of Care Document ---
Author Organization [facility] Address [address] [place] [address]- Support Name Relationship Address Phone JERMAINE, EMILIE [...] EMILIE Personal Relationship Unknown Unav ailable JERMAINE, EMILEI Personal Relationship Unknown Unav ailable JERMAINE, EMILIE [...] Unknown Unav ailable Care Team Providers Care Primary Class Teacher Name Role Phone Tyler Luisa CROCKER Primary Care Physician Encounter [facility] Date(s): 06/27/24 - 07/27/24 [facility] Adult [address] [place], [place] [address] Encounter Type: Triage Allergies, Adverse Reactions, Alerts [...] pneumococcal 20-valent conjugate vaccine 7 03/21/23 Given [id number] 12y+ bivalent booster vax 06/01/22 Recorded [id number] 12y+ bivalent booster vax 05/28/22 Recorded Influenza Virus Vaccine (oldterm) 05/28/22 Recorde d Influenza Virus Vaccine (oldterm) 8 06/06/20 Recor ded Influenza Virus Vaccine (oldterm) 06/17/19 Recorde d Influenza Virus Vaccine (oldterm) 06/04/08 Given tetanus/diphtheria/pertussis, acel(Tdap) 05/26/22 Given SARS-CoV-2 mRNA ([id number]) vax 9 03/16/22 Given SARS-CoV-2 (COVID-19) mRNA [...] Pneumococcal Vacc (oldterm) 10/26/01 Given 1Result Comment: [id number] Checklist completed 2Result Comment: [[facility]/08/2018] [facility] 3Result Comment: [05/29/2017] [facility] [id number] 4Result Comment: [06/06/2016] [facility]- [facility]ose 5Admin Note: [facility] 6Admin Note: GIVEN IN CLINIC [facility] 7Result Comment: [id number] 8[facility] Comment: [facility] 9Result Comment: [facility]# [id number] 10Admin Note: FLU CLINIC 11Admin Note: [facility] VIS [id number] given Medications Daily Hemalatha oral tablet 1 tablet, By Mouth, Daily, # 90 tablet, 1 Refills, Maintenance, 04/04/24 7:52:00 AM EDT, [facility] # [facility], 90, TAKE ONE TABLET BY MOUTH EVERY DAY, 162.56, cm, 01/09/24 9:34:00 EDT, Height Start Date: 04/04/24 Status: Ordered Quantity: 90.0 Unit: tablet Repeat number: 1 donepezil 10 mg oral tablet 1, tablet, By Mouth, Daily at bedtime, # 30 tablet, Refills 5, Tot. Refills 5, Maintenance, 03/07/2410:42:00 AM EDT, Route to Pharmacy Electronically, [facility], 162.56, cm, 01/09/24 9:34:00 EDT, Height Start Date: 03/07/24 Status: Ordered Quantity: 30.0 Unit: tablet Repeat number: 6 Eliquis 5 mg oral tablet 1 tablet = 5 mg, By Mouth, 2 times a day, # 56 tablet, 0 Refills, Maintenance, 06/28/24 11:01:00 AM EDT, [facility] # [facility], 162.56, cm, 01/09/24 9:34:00 EDT, Height Start Date: 06/28/24 Stop Date: 07/26/24 Status: Ordered Quantity: 56.0 Unit: tablet Repeat number: 1 memantine 10 mg oral tablet 1 tablet, By Mouth, 2 times a day, # 60 tablet, 5 Refills, Maintenance, 03/07/24 10:42:00 AM EDT, [facility] # [facility], 162.56, cm, 01/09/24 9:34:00 EDT, Height Start Date: 03/07/24 Status: Ordered Quantity: 60.0 Unit: tablet Repeat number: 6 Metoprolol Tartrate 25 mg oral tablet 1 tablet, By Mouth, 2 times a day, # 56 tablet, 5 Refills, Maintenance, 06/27/24 2:47:00 PM EDT, [facility] # [facility], 162.56, cm, 01/09/24 9:34:00 EDT, Height Start Date: 06/27/24 Status: Ordered Quantity: 56.0 Unit: tablet Repeat number: 1 omeprazole 20 mg oral enteric coated capsule 1 capsule, By Mouth, Daily, # 28 capsule, 5 Refills, Maintenance, 02/07/24 4:04:00 AM EDT, [facility] # [facility], 162.56, cm, [...] Refills, Maintenance, 05/31/24 8:23:00 AM EDT, Tablet, [facility] # [facility], 162.56, cm, 01/09/24 9:34:00 EDT, Height Start Date: 05/31/24 Stop Date: 08/29/24 Status: Ordered Quantity: 90.0 Unit: tablet Repeat number: 1 sertraline 50 mg oral tablet 1 tablet = 50 mg, By Mouth, Daily, Take in addition to 100mg tab for a total of 150mg/day, # 90 tablet, 0 Refills, Maintenance, 05/31/24 8:23:00 AM EDT, Tablet, [facility] # [facility], 162.56, cm, 01/09/24 9:34:00 EDT, Height Start Date: 05/31/24 Status: Ordered Quantity: 90.0 Unit: tablet Repeat number: 1 simvastatin 20 mg oral tablet 1, tablet, By Mouth, Daily at bedtime, # 28 tablet, Refills 5, Maintenance, 06/27/24 2:46:00 PM EDT, Route to Pharmacy Electronically, [facility] # [facility], 162.56, cm, 01/09/24 9:34:00 EDT, Height Start Date: 06/27/24 Status: Ordered Quantity: 28.0 Unit: tablet Repeat number: 1 valsartan 80 mg oral tablet 1, tablet, By Mouth, Daily, # 28 tablet, Refills 5, Maintenance, 06/27/24 2:46:00 PM EDT, Route to Pharmacy Electronically, [facility] # [facility], 162.56, cm, [...] Osteopenia Confirmed Active AF (paroxysmal atrial fibrillation) YKLXS2Flak score 4 Confirmed Active Abnormal plasma protein test;faint IGM Confirmed Active Thyroid nodules, bilateral Confirmed Active Social History Social History Type Response Smoking Status Never smoker entered on: 01/30/14 Sex Sex Representation Female (finding) Patient Care team information Care Team Personnel Name: Luisa Scott NP Position: S PCO Associate Professional Member Role: PCP Address: [address] [place] [address]- Telecom: Care Team Related Persons Name: MAR GOLDSMITH Name: Mar Goldsmith Name: MAR GOLDSMITH Name: EMILIE GOLDSMITH Name: CARLOS GOLDSMITH Name: CARLOS GOLDSMITH Insurance Providers Guarantor name: RENUKA GOLDSMITH Health Plan Information #: 1 Payer: MEDICARE PART B OUTPT Member Number: NA Policy Number: NA Group Number: NA
--- OUTSIDE RECORDS SUMMARY | 2024-08-23 08:37 | XMS_ITS | Continuity of Care Document ---
Author Organization [facility] Address [address] [place] [address]- Support Name Relationship Address Phone JERMAINE, EMILIE [...] Unknown Unav ailable Care Team Providers Care Twist Maker Name Role Phone Tyler Luisa CROCKER Primary Care Physician Encounter [facility] Date(s): 07/23/24 - 08/22/24 [facility] Adult [address] [place], [place] [address] Encounter Type: Triage Allergies, Adverse Reactions, Alerts No Known Allergies Immunizations Given and Recorded Vaccine Date Status Refusal Reason RSV vaccine preF3, recombinant 07/19/24 Recorded SARS-CoV-2(COVID-19)mRNA-LNP vac([id number]) 07/12/24 Recorded influenza virus vaccine, inactivated 1 06/29/23 Gi [...] pneumococcal 20-valent conjugate vaccine 7 03/21/23 Given [id number] 12y+ bivalent booster vax 06/01/22 Recorded [id number] 12y+ bivalent booster vax 05/28/22 Recorded Influenza Virus Vaccine (oldterm) 05/28/22 Recorde d Influenza Virus Vaccine (oldterm) 8 06/06/20 Recor ded Influenza Virus Vaccine (oldterm) 06/17/19 Recorde d Influenza Virus Vaccine (oldterm) 06/04/08 Given tetanus/diphtheria/pertussis, acel(Tdap) 05/26/22 Given SARS-CoV-2 mRNA ([id number]) vax 9 03/16/22 Given SARS-CoV-2 (COVID-19) mRNA [...] Pneumococcal Vacc (oldterm) 10/26/01 Given 1Result Comment: [id number] Checklist completed 2Result Comment: [05/08/2018] [facility] 3Result Comment: [05/29/2017] [facility] [id number] HD 4Result Comment: [06/06/2016] [facility]- High Dose 5Admin Note: [facility]U CLINIC 6Admin Note: GIVEN IN CLINIC [facility] 7Result Comment: [id number] 8Result Comment: [facility] 9Result Comment: [facility]# [id number] 10Admin Note: FLU CLINIC 11Admin Note: [facility] VIS [phone] given Medications Daily Hemalatha oral tablet 1 tablet, By Mouth, Daily, # 90 tablet, 1 Refills, Maintenance, 04/04/24 7:52:00 AM EDT, [facility] # [facility], 90, TAKE ONE TABLET BY MOUTH EVERY DAY, 162.56, cm, 01/09/24 9:34:00 EDT, Height Start Date: 04/04/24 Status: Ordered Quantity: 90.0 Unit: tablet Repeat number: 1 donepezil 10 mg oral tablet 1, tablet, By Mouth, Daily at bedtime, # 30 tablet, Refills 5, Tot. Refills 5, Maintenance, 03/07/2410:42:00 AM EDT, Route to Pharmacy Electronically, [facility] # [facility], 162.56, cm, 01/09/24 9:34:00 EDT, Height Start Date: 03/07/24 Status: Ordered Quantity: 30.0 Unit: tablet Repeat number: 6 Eliquis 5 mg oral tablet 1 tablet = 5 mg, By Mouth, 2 times a day, # 56 tablet, 3 Refills, Maintenance, 07/29/24 3:26:00 PM EST, [facility] # 50, 162.56, cm, 07/11/24 11:36:00 EST, Height Start Date: 07/29/24 Stop Date: 11/18/24 Status: Ordered Quantity: 56.0 Unit: tablet Repeat number: 4 memantine 10 mg oral tablet 1 tablet, By Mouth, 2 times a day, # 60 tablet, 5 Refills, Maintenance, 03/07/24 10:42:00 AM EDT, [facility] # 50, 162.56, cm, 01/09/24 9:34:00 EDT, Height Start Date: 03/07/24 Status: Ordered Quantity: 60.0 Unit: tablet Repeat number: 6 Metoprolol Tartrate 25 mg oral tablet 1 tablet, By Mouth, 2 times a day, # 56 tablet, 5 Refills, Maintenance, 06/27/24 2:47:00 PM EDT, [facility] # 50, 162.56, cm, 01/09/24 9:34:00 EDT, Height Start Date: 06/27/24 Status: Ordered Quantity: 56.0 Unit: tablet Repeat number: 1 omeprazole 20 mg oral enteric coated capsule 1 capsule, By Mouth, Daily, # 28 capsule, 5 Refills, Maintenance, 02/07/24 4:04:00 AM EDT, [facility] # [facility], 162.56, cm, 01/09/24 9:34:00 [...] Refills, Maintenance, 05/31/24 8:23:00 AM EDT, Tablet, [facility] # [facility], 162.56, cm, 01/09/24 9:34:00 EDT, Height Start Date: 05/31/24 Stop Date: 08/29/24 Status: Ordered Quantity: 90.0 Unit: tablet Repeat number: 1 sertraline 50 mg oral tablet 1 tablet = 50 mg, By Mouth, Daily, Take in addition to 100mg tab for a total of 150mg/day, # 90 tablet, 0 Refills, Maintenance, 05/31/24 8:23:00 AM EDT, Tablet, [facility] # [facility], 162.56, cm, 01/09/24 9:34:00 EDT, Height Start Date: 05/31/24 Status: Ordered Quantity: 90.0 Unit: tablet Repeat number: 1 simvastatin 20 mg oral tablet 1, tablet, By Mouth, Daily at bedtime, # 28 tablet, Refills 5, Maintenance, 06/27/24 2:46:00 PM EDT, Route to Pharmacy Electronically, [facility] # [facility], 162.56, cm, 01/09/24 9:34:00 EDT, Height Start Date: 06/27/24 Status: Ordered Quantity: 28.0 Unit: tablet Repeat number: 1 valsartan 80 mg oral tablet 1, tablet, By Mouth, Daily, # 28 tablet, Refills 5, Maintenance, 06/27/24 2:46:00 PM EDT, Route to Pharmacy Electronically, [facility] # [facility], 162.56, cm, 01/09/24 9:34:00 [...] Osteopenia Confirmed Active AF (paroxysmal atrial fibrillation) [id number] score 4 Confirmed Active Abnormal plasma protein test;faint IGM Confirmed Active Thyroid nodules, bilateral Confirmed Active Social History Social History Type Response Smoking Status Never smoker entered on: 01/30/14 Sex Sex Representation Female (finding) Patient Care team information Care Team Personnel Name: Luisa Scott NP Position: [facility] PCO Associate Professional Member Role: PCP Address: [address] [place] [id number] Telecom: Care Team Related Persons Name: MAR GOLDSMITH Name: MAR GOLDSMITH Name: Mar Goldsmith Name: EMILIE GOLDSMITH Name: CARLOS GOLDSMITH Name: CARLOS GOLDSMITH Insurance Providers Guarantor name: RENUKA GOLDSMITH Health Plan Information #: 1 Payer: MEDICARE PART B OUTPT Member Number: NA Policy Number: NA Group Number: NA
--- OUTSIDE RECORDS SUMMARY | 2024-08-23 08:38 | XMS_ITS | Data Portability ---
Author Organization [place] [facility] Address [address] [place] [address] Assessment Encounter Date Assessment Date Assessment LastModified by Organization Details LastModified Time 02/21/2022 02/21/2022 Overview/History : 86 YO F new to dh and new to provider she is being seen today for RLE pain to her quad region she denies any known trauma to the area she was moving plants earlier this week and helping her dtrs w/ some house work she has had pain since then and it is located to the area of her IT band on her RLE It does not radiate and she describes it as mild. Tylenol helps. It gets a little worse when she ambulated per her report. Again she denies any known trauma, no falls, no fever/chills, abd pain, NVD, numbness/tinglin g, weakness, cp, sob. No other reported sxs today. Exam: Vitals: VSS and afebrile Constitutional: 86 yo Well developed, well nourished, pleasant patient in no apparent distress. Comfortable on her couch and not toxic appearing. Eyes: No swelling, no discharge, sclera / conjunctiva clear CV: RRR, no rubs/ murmurs/ gallops heard, 2+ radial pulses bilaterally, no edema and no calf tenderness BL, 2+ DP/ PT pulses bilaterally Pulm: breath sounds clear and equal bilaterally, no wheeze/ rhonchi or rales on auscultation. Speaks in full sentences, no increased work of breathing. : No CVA tenderness bilaterally. MS: spine nontender to palpation throughout, Self ambulatory patient, moves all limbs without deficit, no evidence of trauma, mild pain to palpation directly over area of IT band to RLE, no other tenderness to palpation nor s/s of joint injuries/muscle injuries, full ROM noted throughout, good strength Neuro: No focal deficits, A&O x4, gait is not ataxic, sensation intact to BL toes, ankle jerk reflex intact BL Skin: very mild scattered bruising on eliquis, nothing significant, remainder of skin is cdi Psych: Calm, cooperative, non-manic. Pleasant. DDx considered, but not limited to: Hip/Femur fx - no hip pain, no trauma, no s/s of trauma, can ambulate w/o difficulty. Do not suspect fx DVT - no unilateral edema, no calf pain/tenderness, no redness/warmth, she is on eliquis moth exterminator, do not suspect any clotting IT band syndrome - suspect pain to IT band on RLE as her pain is in area of the ilitotibial tract, no radiation of pain, no ant or post leg pain, no knee pain, overuse is noted w/ recent house work. ML cause of sxs based on hx and exam at this time Work up/Results: N/a --> no need for XR as no trauma and no s/s trauma on exam. No recent falls. No need for u/a as no calf pain and no s/s of DVT on exam, pt also on eliquis Plan/Discussion: IT Band Syndrome: -Believe this to be the most likely cause of sxs at this time -SHe is having pain to the lateral portion of R thigh and it seems mild as she is sitting comfortably and can ambulate w/o difficulty -No antecedent trauma, tylenol has been helping pain -Cont tylenol, encouraged to RICE extremity -She may trial voltaren gel and lidocaine patches/gel as well to help w/ pain -I believe w/ rest and OTC modalities she should recover w/in coming days, if pain cont f/u for re-eval -I also discussed that if pain cont she may benefit from PT liane given age it would be prudent to avoid stronger pain meds ie narcotics/muscle relaxers as they may cause sedation/lighthe adedness and could precipitate a fall. -I messaged pt PCP Dr Cason via Cortext w/ my impression and plan and he responds promptly which I appreciate -ED precautions discussed for severe pain, cp, sob, hemoptysis, leg swelling/redness . weakness, numbness/tinglin g, change in extremity color, AMS Pt and dtrs is on agreement and verbalizes understanding with the above plans at this time. Pt and dtrs has no other questions or concerns at this time. All questiosn are answered to the best of my ability. Pt and dtrs thanks us for our visit today. [email or web address] Not available 02/21/2022 15:54:36 Plan of Treatment Reminders Order Date Submit Date Provider Last Modified By Organization Details Last Modified Time Details Appointments None record ed. Lab None record ed. Referral None record ed. Procedures None record ed. Surgeries None record ed. Imaging None record ed. Medication Orders None record ed. Patient TargetsNo targets recorded. Patient InstructionsNo instructions recorded. Reason for Referral None Reported. Procedures Surgical History Date Name Laterality Status Provider Name and Address Organization Details Recorded Time Total Hysterectomy completed NACHO Olivares [address] [place], [address], [place] [facility] 02/21/2022 14:52:28 Imaging Results None recorded. Procedure Notes None recorded. Medical Equipment None Reported. Allergies No known drug allergies Medications Name Sig Start Date Stop Date Status Note LastModified by Organization Details LastModified Time donepezil 10 mg tablet active Not Available Not Available No t Available valsartan 80 mg tablet active Not Available Not Available No t Available simvastatin 20 mg tablet active Not Available Not Available No t Available omeprazole 20 mg capsule,delaye d release active Not Available Not Available No t Available sertraline 50 mg tablet active Not Available Not Available No t Available memantine 10 mg tablet active Not Available Not Available No t Available metoprolol tartrate 25 mg tablet active Not Available Not Available Not Available Eliquis 5 mg tablet active Not Available Not Available Not Available Vitals Date Recorded Oxygen saturation Oxygen saturation in Arterial blood by Pulse oximetry Respiratory rate Body temperature Heart rate Systolic blood pressure Diastolic blood pressure Provider Name and Address Organization Details Last Updated DateTime 2 97 % 97 % 18 /min 98.7 [degF] 60 /min 140 mm[Hg] 78 mm[Hg] Not Available [facility] 2 14:52:13 Social History Question Answer Notes LastModified by Organizat ion Details LastModified Time Tobacco Smoking Status Never Smoker NACHO Olivares [address] [place], [address], [place] [facility] 02/21/2022 14:52:15 What Is Your Level Of Alcohol Consumption? None Information not available 02/21/2022 Do You Use Any Illicit Or Recreational Drugs? No Information not available 02/21/2022 Has Tobacco Cessation Counseling Been Provided? No Information not available 02/21/2022 Do You Or Have You Ever Used Any Other Forms Of Tobacco Or Nicotine? No Information not available 02/21/2022 Sex: Unknown Functional Status None recorded. Mental Status None recorded. Family History Relationship Description Onset Age of this Age Resolved Age Notes LastModified by Organization Details LastModified Time Mother Malignant tumor of colon crumplik Not available 2021 14:51:56 Medical History Condition Response Coronary Artery Disease N Parkinson's Disease N COPD N Depression Y Hypothyroidism N A-fib Y Diabetes N CHF N Cancer N Dementia Y Stroke N Asthma N High Cholesterol Y Rheumatoid Arthritis N Pulmonary Embolism Y Hypertension Y Osteoporosis N Kidney Disease Y Gynecological HistoryNo gynecological history recorded. Obstetrics History GPAL:G 0 P 0 0 0 0 Past Encounters Encounter ID Performer Location Encounter Start Date Encounter Closed Date Diagnosis/Indication Diagnosis SNOMED-CT Code Diagnosis ICD10 Code 061945 NACHO Araya [facility] [address] [address] 02/21/2022 14:15:01 03/02/2022 14:16:25 Iliotibial band friction syndrome 325108118 M76.31 Health Concerns Section Related Observation LastModified by Organization Detai ls LastModified Time None Recorded Concern Status LastModified by Organization Details LastModified Time None Recorded Advance Directives Directive None Recorded Payers Encounter Date Sequence Insurance Name Policy Number Policy West Covered Member ID West Member ID Guarantor Name 02/21/2022 1 [place]: [employer] Ainsley Dean [id number] Ainsley Dean 02/21/2022 2 WPS - FOR LIFE (MEDICARE SUPPLEMENT) Ainsley Dean [id number] Ainsley Dean Notes Date Note Type Note Provider Name and Address Organization Details Recorded Time 02/21/2022 text/html 86 YO F new to d h and new to providershe is being seen today for RLE pain to her quad regionshe denies any known trauma to the areashe was moving plants earlier this week and helping her dtrs w/ some house workshe has had pain since then and it is located to the area of her IT band on her RLEIt does not radiate and she describes it as mild. Tylenol helps. It gets a little worse when she ambulated per her report.Again she denies any known trauma, no falls, no fever/chills, abd pain, NVD, numbness/tingling , weakness, cp, sob. No other reported sxs today. NACHO Olivares [address] [place], [address], [place] [facility] 02/25/2022 12:15:07 OBGyn Episode No OBEpisode recorded.
--- OUTSIDE RECORDS SUMMARY | 2024-08-23 08:38 | XMS_ITS ---
Author Organization [facility] Address [address] [place] [address] Care Team Providers Care Burrer Machine Name Role Phone Tyler Luisa GRIFFITH Primary Care Provider Unavail able Nena Lora Unavailable [phone] Uvaldo Anthony Unavailable [phone] REASON FOR VISIT Pcp- 09/20, At Risk Footcare, Painful Nail(s) aggrevated by shoes and causing difficulty standing/walking, Wart(s) Encounters Encounter Location Date Provider Diagnosis [facility] [address] [place] [address] 05/20/2024 Uvaldo Anthony Pain in right foot M79.671 ; Plantar wart B07.0 ; Pain in left foot M79.672 ; Tinea unguium B35.1 ; Pain in left toe(s) M79.675 ; Pain in right toe(s) M79.674 and Unspecified atherosclerosis of [place] arteries of extremities, bilateral legs I70.203 Assessments [...] (ICD-10 - M79.674) 05/20/2024 Unspecified atherosclerosis of [place] arteries of extremities, bilateral legs (ICD-10 - I70.203) Plan Of Treatment Next Appt Details Follow Up: 2 Months, Reason: Provider Name:Nena almonte, 10/18/2024 12:30:00 PM, [address] [place] [address], [address], Procedure Notes * Category Sub-Category Detail Notes Wart Treatment Procedure Verrucae(s) were debrided to pin-point bleeding margins with sterile surgical blade, silver nitrate chemocautery applied, recomm. immune-boosting meds such as zinc, recomm. follow up with topical chemosurgical agents, Pt defers any other forms of tx (58360), CIRCULATION: Any more invasive procedure to wart [...] as necessary. Patient chooses, no pharmaceutical tx (63207) Keratoma Treatment Parring or Cutting o f Benign Hyperkeratotic Lesion(s) 87768 ( >4 Lesions) - The Benign hyperkeratotic lesions, as described above were pared, and/or cut utilizing a sterile #15 blade, tissue nippers, and/or dremel, Q8 Progress Notes * Ainsley DEAN RDOB: (88 yo F)Acc No.[id number]:05/20/2024 Progress Note Patient:?Ainsley DEAN R Provider:?Uvadlo Anthony DPM :1935???Age:88 Y???Sex:Female D ate:05/20/2024 Address:[address] [place] [address] [id number] Pcp:NACHO Hamlin Subjective: * Chief Complaints: * ???1. Pcp- 09/20. 2. At Risk Footcare. 3. Painful Nail(s) aggrevated by shoes and causing difficulty standing/walking. 4. Wart(s). * HPI: ???At Risk footcare:?Pt States Last PCP Visit:?Date?09/20/2023 ???Skin problems:?Pt States PCP Visit: ?DATE?09/20/2023 * ROS:?General/Constitutional:?Nausea?denies.?Vomiting?denies.?Hunger Thirst?denies.?Loss appetite?denies.?Chills?denies.?Fatigue?denies.?Fever?denies.?Night Sweats?denies.?Unexplained weight loss?denies.?Unexplained weight gain?denies.?HEENTM:?Dentures?denies.?Dizziness?denies.?Glasses/contacts?denies.?Retinopathy?de nies.?Blurred/double vision?denies.?TMJ?denies.?Discharge/drainage?denies.?Implants?denies.?Sore throat?denies.?Dental implants?denies.?Hard of hearing ?denies.?Difficulty chewing/swallowing/speaking?denies.?Nose bleeds?denies.?Sore mouth?denies.?Respiratory:?On Oxygen?denies.?Pneumonia/pleurisy?denies.?Bronchitis?denies.?Emphysema?denies.?C oughing?denies.?Cough blood?denies.?Shortness of breath?denies.?Wheezing?denies.?Cardiovascular:?Pacemaker?denies.?MVP?denies.?WPW?denies.?CHF?denies.?Heart attack?denies.?Septal defect?denies.?Rapid beat?denies.?Chest pain ?denies.?Atrial Fib.?denies.?Murmur/Palpitations?denies.?Gastrointestinal:?Hemorrhoids?denies.?Stomach/Abdominal pain?denies.?Dark blood stool?denies.?Irritable bowel ?denies.?Constipation?denies.?Diarrhea?denies.?Hematology:?Swelling?denies.?Clots?denies.?Varicose Veins?denies.?Bruising?denies.?Bleeding problem?denies.?Genitourinary:?Blood urine?denies.?Frequent/Painfu/urination/bladder control?denies.?Kidney stones?denies.?Infection (UTI)?denies.?Nephropathy?denies.?sex trans dis (STD)?denies.?Prostate?denies.?Musculoskeletal:?Hammertoes?denies.?Bunions?denies.?Back Pain?denies.?Muscle Cramps/ Resting?denies.?Muscle cramps / walking?denies.?Generalized aches and pains?denies.?Weakness?denies.?Integ.:?Brady?denies.?Scars?denies.?Corns/calluses?admits.?Ingrown nails?denies.?Painful nails?denies.?Open Sores?denies.?Rashes?denies.?Neurologic:?Difficulty sleeping?denies.?Brain disorder?denies.?Numbness?denies.?Balance trouble?denies.?Confusion?denies.?Fainting/blackouts?denies.?Tingling?denies.?Tr emors?denies.? * Medical History:? Objective: * Vitals:? * Examination: ???Vascular: ?DP PULSES (B):?0/4, B/L.?PT PULSES (B):?0/4, B/L.?CAPILLARY FILL TIME:?delayed, all digits, B/L.?TROPHIC CONDITION-TEXTURE/ELASTICITY/TURGOR/HAIR GROWTH (B):?decreased, B/L.?TEMPERTURE GRADIENT (C):?decreased, cool to cool, proximal to distal, B/L.?PIGMENTATION:?pale, B/L.?EDEMA (C):?1/4, B/L.?Nails: ?NAILS are:?Elongated, overgrown, dystrophic, lytic, greater than 3mm thick, discolored and friable with crumbly malodorous subungual debris, with pain on palpation , 1-5 B/L.?Dermatologic: ?SKIN FINDINGS:?Skin exam reveals Keratotic lesion(s) located at , TA, T1, T5, T8, SUB MTH (s), 1, B/L .?VERRUCA:?reveals Multiple ( 3), multi-loculated , mosaic, round, raised, flat-topped, petechial bleeding papulae(s), with cauliflower appearance and interrruption of skin lines, with pain to lateral compression, and size estimated at 3mm diameter,plantar Forefoot,B/L plantar Heel RIGHT.?Neurological: ?TINEL'S COMPRESSION:? Negative tarsal tunnel, kane pedis, and medial calcaneal nerves.? Assessment: * Assessment: 1.?Pain in right foot - M79. 671???2.?Plantar wart - B07.0 (Primary)???3.?Pain in left foot - M79.672???4.?Tinea unguium - B35.1???5.?Pain in left toe(s) - M79.675???6.?Pain in right toe(s) - M79.674???7.?Unspecified atherosclerosis of [place] arteries of extremities, bilateral legs - I70.203??? [...] as necessary. Patient chooses, no pharmaceutical tx (48922).?Keratoma Treatment:?Parring or Cutting of Benign Hyperkeratotic Lesion(s)?46152 ( >4 Lesions) - The Benign hyperkeratotic lesions, as described above were pared, and/or cut utilizing a sterile #15 blade, tissue nippers, and/or dremel, Q8.?Wart Treatment:?Procedure?Verrucae(s) were debrided to pin-point bleeding margins with sterile surgical blade, silver nitrate chemocautery applied, recomm. immune-boosting meds such as zinc, recomm. follow up with topical chemosurgical agents, Pt defers any other forms of tx (72225), CIRCULATION: Any more invasive procedure to wart deferred due to circulation risk.? * Procedure Codes:?03727 Wart Destruction, 1-14, Modifiers: XS , 18998 DEBRIDE NAIL, 6 OR MORE, Modifiers: XS , 55556 TRIM SKIN LESIONS, OVER 4, Modifiers: XS , Q8 * Follow Up:?2 Months * Images: * The named appointment provid er may or may not be the originator of this progress note, and it is not deemed complete until electronically signed by the appointment provider. Sign off status: Pending * Provider:?Uvaldo Anthony DPM Date:? 024 Generated for Ha foy/Hiro/Kaitlinsmitting on:?08/23/2024 08:37 AM EST History and Physical [...]
--- OUTSIDE RECORDS SUMMARY | 2024-08-23 08:38 | XMS_ITS ---
Author Organization [facility] Address [address] [facility] [place] [address] Care Team Providers Care Pen And Pencil Repairer Name Role Phone Tyler Luisa GRIFFITH Primary Care Provider Unavail Nena Jiménez [phone] REASON FOR VISIT same day cx 05/20/24 Encounters Encounter Location Date Provider Diagnosis [address] [address] 05/20/2024 Nena Lora Plan Of Treatment Next Appt Details Provider Name:Nena almonte, 10/18/2024 12:30:00 PM, [address] [place], [address], Progress Notes * Ainsley DENA RDOB: [birth year] (88 yo F)Acc No.[id number]:05/20/2024 Patient:?Ainsley Dean :1935???Age:88 Y???Sex:Female Address:[address] [facility], [facility] [address] * true * Date:? Generated for Ha foy/Hiro/eTransmitting on:?08/23/2024 08:37 AM EST
--- OUTSIDE RECORDS SUMMARY | 2024-08-23 08:38 | XMS_ITS | Patient Health Record ---
Author Organization [facility] [place] Address [address] [facility] [place] [address] Care Team Providers Care Desulphurizer Operator Name Role Phone Tyler Luisa GRIFFITH Primary Care Provider Unavail able ChristineBobby almonteen Unavailable [phone] Uvaldo Anthony Unavailable [phone] Allergies No Known Allergies Reason For Referral No Information Medications Medication SIG (Take, Route, Frequency, Duration) [...] e a day for 30 day(s) Active Immunizations Vaccine Route Administration Date Status Comme nts Influenza Unknown 06/06/2018 Administered Social History Tobacco Use: Social History Observation [...] Are you an other tobacco user? 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.42) Active confirmed Problem 06296347 Osteoarthritis o f right ankle and foot (M19.071) Active confirmed Vital Signs Blood pressure diastolic 80 mm Hg 07/12/2024 Height 5 ft 3 in in 07/12/2024 Blood pressure systolic 120 mm Hg 07/12/2024 Weight 139 lbs 07/12/2024 BMI 24.62 kg/m2 07/12/2024 Encounters Encounter Location Date Provider Diagnosis [address] [address] 11/17/2023 Nena Perica Pain in right foot M79.671 ; Plantar wart B07.0 ; Pain in left foot M79.672 ; Tinea unguium B35.1 ; Pain in left toe(s) M79.675 ; Pain in right toe(s) M79.674 and Unspecified atherosclerosis of [place] arteries of extremities, bilateral legs I70.[address] [address] 02/02/2024 Nena Perica Pain in right foot M79.671 ; Plantar wart B07.0 ; Pain in left foot M79.672 ; Tinea unguium B35.1 ; Pain in left toe(s) M79.675 ; Pain in right toe(s) M79.674 and Unspecified atherosclerosis of [place] arteries of extremities, bilateral legs I70.[address] [address] 07/12/2024 Nena Perica Pain in right foot M79.671 ; Plantar wart B07.0 ; Pain in left foot M79.672 ; Tinea unguium B35.1 ; Pain in left toe(s) M79.675 ; Pain in right toe(s) M79.674 and Unspecified atherosclerosis of [place] arteries of extremities, bilateral legs I70.203 [facility] [address] [place] [address] 10/13/2023 Nena Lora [facility] [address] 11/17/2023 Nena Perica [facility] [address] 04/10/2024 [facility] [address] 05/20/2024 Nena Lora Assessments Encounter Date Diagnosis (ICD Code) Assessment Notes Treatment Notes Treatment Clinical Notes Section Notes 11/17/2023 Pain in right foot (ICD-10 - M79.671) 02/02/2024 Pain in right foot (ICD-10 - M79.671) 07/12/2024 Pain in right foot (ICD-10 - M79.671) 07/12/2024 Plantar wart (ICD-10 - B07.0) 02/02/2024 Plantar wart (ICD-10 - B07.0) 11/17/2023 Plantar wart (ICD-10 - B07.0) 11/17/2023 Pain in left foot (ICD-10 - M79.672) 02/02/2024 Pain in left foot (ICD-10 - M79.672) 07/12/2024 Pain in left foot (ICD-10 - M79.672) 07/12/2024 Tinea unguium (ICD-10 - B35.1) 02/02/2024 Tinea unguium (ICD-10 - B35.1) 11/17/2023 Tinea unguium (ICD-10 - B35.1) 11/17/2023 Pain in left toe(s) (ICD-10 - M79.675) 02/02/2024 Pain in left toe(s) (ICD-10 - M79.675) 07/12/2024 Pain in left toe(s) (ICD-10 - M79.675) 07/12/2024 Pain in right toe(s) (ICD-10 - M79.674) 02/02/2024 Pain in right toe(s) (ICD-10 - M79.674) 11/17/2023 Pain in right toe(s) (ICD-10 - M79.674) 11/17/2023 Unspecified atherosclerosis of [place] arteries of extremities, bilateral legs (ICD-10 - I70.203) 02/02/2024 Unspecified atherosclerosis of [place] arteries of extremities, bilateral legs (ICD-10 - I70.203) 07/12/2024 Unspecified atherosclerosis of [place] arteries of extremities, bilateral legs (ICD-10 - I70.203) Plan Of Treatment Pending Test Test Name Order Date *Uric Acid, Serum 11/29/2017 *CBC With Differential/Platelet 11/30/19 18 ESR 11/29/2017 X ray : Foot, right 3V 11/29/2017 15439-ZOEYLZK NAIL, 6 OR MORE 02/18/2013 96554-BRBPRDD NAIL, 6 OR MORE 05/22/2013 59759-LJLWMQK NAIL, 6 OR MORE 09/11/2013 65391-PDMMMGA NAIL, 6 OR MORE 12/25/2013 48760-NUWRMJS NAIL, 6 OR MORE 03/26/2014 85500-HAGIVCO NAIL, 6 OR MORE 06/23/2014 80334-VJBHNIS NAIL, 6 OR MORE 03/28/2018 67375-UYPTHNB NAIL, 6 OR MORE 06/06/2018 11069-SRNTDEA NAIL, 6 OR MORE 08/07/2018 52110-Jibv Destruction, 1-14 06/06/2018 35975-Jyep Destruction, 1-14 08/07/2018 46712-Tzfc Destruction, 1-14 05/22/2013 89181-Rxcd Destruction, 1-14 02/18/2013 76931-Pcjh Destruction, 1-14 03/28/2018 31507-Uexv Destruction, 1-14 09/11/2013 47533-Qxyngzty Plate 06/23/2014 99073- Debride <25 sq cm 05/22/2013 64843- Debride <25 sq cm 06/23/2014 11792- Debride <25 sq cm 12/25/2013 59367-ZNKG SKIN LESIONS, OVER 4 03/28/20 18 03664-NGPG SKIN LESIONS, OVER 4 08/07/20 18 10083-NUPP SKIN LESIONS, OVER 4 06/06/20 18 Next Appt Details Provider Name:Nena almonte, 10/18/2024 12:30:00 PM, [address] [place], [address], Insurance Providers Payer Name Payer Address Payer Phone Subscriber Number Group Number Insured Name Patient Relationship to Insured Coverage Start Date Coverage End Date Medicare [employer] [address] [place] [address] [id number] Ainsley Dean Self - patient is the insured for Life [address] [place] [id number] [phone] [id number] Felipe Dean Spouse - patient is the spouse of the insured Medical (General) History Medical History History ICD Code transfusions mumps high blood pressure chicken pox Surgical History Surgery Date(Month/Year) hysterectomy 1982 Hospitalization History Reason Date(Month/Year) [facility] [place] - feet swelling, blood clot left leg 06/2018
[2024-08-23 08:46] VITALS: BP 137/72; PULSE 65; RESP 18; TEMP 36.3; O2SAT 96; BMI 24.7
[2024-08-23 09:23] LABS: Hematocrit 37.4 % (37.0-47.0); Hemoglobin 12.6 g/dl (12.0-16.0); Mean Corpuscular HGB Conc 33.7 g/dl (31.0-35.0); Mean Corpuscular Hemoglobin 30.7 pg (27.0-33.0); Mean Platelet Volume 8.7 fL (9.4-12.3); Platelet Count 244 X10*3/uL (160-400); Red Blood Count 4.11 X10*6/uL (4.20-5.50); Red Cell Distribution Width 13.6 % (11.0-16.0); White Blood Count 8.5 X10*3/uL (4.8-10.8)
[2024-08-23 09:37] LABS: Anion Gap 13 (12-20); Blood Urea Nitrogen 18 mg/dL (9-16); Calcium 8.9 mg/dL (8.4-10.2); Carbon Dioxide 26 mmol/L (22-29); Chloride 107 mmol/L (96-108); Creatinine Clr Calc Pharmacy 42.8; Estimated Glomerular Filt Rate > 60; Glucose Random 98 mg/dL (60-115); Potassium 3.6 mmol/L (3.3-5.1); Sodium 142 mmol/L (135-145)
--- NOTE | 2024-08-23 11:30 | ED.ANIMALBIT ---
HPI - Animal Bite General Chief Complaint: Animal Bite Stated Complaint: Cat bite Time Seen by Provider: 08/23/24 10:58 Source: patient Mode of arrival: ambulatory Limitations: no limitations History of Present Illness ED Provider: Kamila Sosa NP HPI narrative: Patient is an 88-year-old female who presents emergency department for evaluation. She reports that 2 weeks ago she was bitten by a cat in the palm of her left hand, a few days later she went to [facility] and [place] states there was an abscess that was drained and she received a 7 day course of Augmentin 08/09/2024 and completed the course. She continues to have swelling to the left palm and thumb they went back to urgent care yesterday and was advised to come to emergency department to have further radiographic imaging to rule out deeper space infection. She denies fevers or chills. Increased pain with movement of the thumb. Related Data Home Medications ?Medication ?Instructions ?Recorded ?Confirmed apixaban 5 mg tablet (Eliquis) 5 mg PO BID 08/23/24 08/23/24 donepezil 10 mg tablet 10 mg PO DAILY 08/23/24 08/23/24 memantine 10 mg tablet 10 mg PO BID 08/23/24 08/23/24 metoprolol tartrate 25 mg tablet 25 mg PO BID 08/23/24 08/23/24 omeprazole 20 mg capsule,delayed 20 mg PO DAILY 08/23/24 08/23/24 release sertraline 100 mg tablet 100 mg PO DAILY 08/23/24 08/23/24 simvastatin 20 mg tablet 20 mg PO BEDTIME 08/23/24 08/23/24 valsartan 80 mg tablet 80 mg PO DAILY 08/23/24 08/23/24 Previous Rx's ?Medication ?Instructions ?Recorded walker (Ultra-Light Rollator misc) #1 ea 02/26/24 Allergies Allergy/AdvReac Type Severity Reaction Status Date / Time No Known Allergies Allergy Verified 08/23/24 08:47 [No Known Allergies*] Review of Systems Review of Systems: Yes all other systems are reviewed and are negative PMFSH Past Medical History Attestation statement: The following information was validated with the patient. Source: old records reviewed Medical History HTN (hypertension) Afib Alzheimer's dementia Social History Social History Alcohol intake: former Patient Tobacco Use Status: Never used Tobacco Smoked in Last 30 Days: No Use of substances other than those prescribed or required for medical reasons: No Advance Directives: Yes Advance Directives Information Provided: No Advance Directives on File: No Physical Exam ED Vital Signs: Vital Signs - 24 hr 08/23/24 08:46 Temperature 97.4 F Pulse Rate 65 Respiratory Rate 18 Blood Pressure 137/72 Pulse Oximetry 96 Oxygen Delivery Method Room Air BMI result Body Mass Index 24.7 Appearance: Alert.?Oriented to person, place and time. No acute distress.?Normal affect.?? CVS: Heart sounds normal. Normal heart rate and rhythm.? Pulses normal.?? Respiratory: No respiratory distress.? Lung sounds clear to auscultation bilaterally?? Skin: Skin warm and dry.? Normal skin color.? Extremities: Left 1st MCP erythematous and warm to touch, swelling, decreased AROM, pain radiates to the distal tip finger. Neuro: Moves all extremities spontaneously. Sensation intact bilaterally. Ambulates with normal steady gait. Course Reevaluation(s) Reevaluation #1: CT revealing possibly early osteo of the dorsal medial first metatarsal head and 1st MCP with phlegmonous changes but no abscess. Spoke with Omari GRIFFITH from Orthopedics, advises medicine adamant for IV antibiotics, no current indication for washout as no abscesses present, ID referral Time: 14:47 Medications Administered Discontinued Medications Generic Name Dose Route Start Last Admin Trade Name Freq PRN Reason Stop Dose Admin Sodium Chloride 1,000 mls @ 999 mls/hr 08/23/24 11:45 08/23/24 14:00 Ns IV 08/23/24 12:45 Infused .Q1H1M [facility]OR Infusion Ampicillin Sodium/Sulbactam 100 mls @ 200 mls/hr 08/23/24 11:42 08/23/24 12:35 Sodium 3 gm/ Sodium Chloride IV 08/23/24 12:11 Infused ONCE ONE Infusion Iohexol 85 ml 08/23/24 13:15 08/23/24 13:15 Iohexol 350 Mg/Ml 100 Ml Infus..Btl IV 08/23/24 13:16 85 ml ONCE ONE Administration Medical Decision Making Medical Decision Making MDM Narrative: Patient is an 88-year-old female past medical history hypertension, atrial fibrillation anticoagulated on Eliquis, dementia who presents emergency department for evaluation after recent cat bite to the left palmar aspect of her hand at the base of the thumb. She is right-hand dominant. As per HPI there was a previously drained abscess and she is a given day course of Augmentin however she continues to have pain redness and swelling with decreased range of motion. Concern for possible deeper space infection abscess, osteomyelitis, septic arthritis. Initial serum labs were obtained prior to my assumption of care CBC is without leukocytosis anemia or thrombocytopenia. No electrolyte derangement. No ROD. Will obtain ESR CRP, CT imaging for further evaluation possible abscess/joint. Covering with Unasyn given onset was after cat bite. By patient's account cat is up-to-date on vaccination including rabies. Differential Diagnosis Differential Diagnoses: The differential diagnosis associated with the presentation includes (See narrative above for further detail) Admission/Observation Consideration of admission/observation: Escalation of care including admission/observation considered (See narrative above for further detail) Lab Data [facility] Lab Attestation statement: I reviewed the patient's lab results. (See narrative above for further detail) 08/23/24 09:16 08/23/24 09:16 Labs: Lab Results 08/23/24 08/23/24 Range/Units 09:16 11:58 WBC 8.5 (4.8-10.8) X10*3/uL RBC 4.11 L (4.20-5.50) X10*6/uL Hgb 12.6 (12.0-16.0) g/dl Hct 37.4 (37.0-47.0) % MCV 91.0 (80.0-98.0) fL MCH 30.7 (27.0-33.0) pg MCHC 33.7 (31.0-35.0) g/dl RDW 13.6 (11.0-16.0) % Plt Count 244 D (160-400) X10*3/uL MPV 8.7 L (9.4-12.3) fL Absolute Nucleated RBC 0.000 (0.0-0.012) X10*3/uL Nucleated RBC % (auto) 0.0 (0.0-0.2) /100WBC ESR 51 H (0-20) MM/HR Hold Purple Top SEE NOTE Sodium 142 (135-145) mmol/L Potassium 3.6 (3.3-5.1) mmol/L Chloride 107 (96-108) mmol/L Carbon Dioxide 26 (22-29) mmol/L Anion Gap 13 (12-20) BUN 18 H (9-16) mg/dL Creatinine 0.75 (0.5-1.4) mg/dL Estim Creat Clear Calc 42.8 Estimated GFR > 60 Random Glucose 98 (60-115) mg/dL Calcium 8.9 (8.4-10.2) mg/dL C-Reactive Protein 1.60 H (< or = 0.50) mg/dL Radiology Impression Discussion of test interpretation with radiology: I have reviewed the radiologist's reading. Radiologist Impression: CT/CT hand LT w IV con IMPRESSION: 1. Focus of focal osteopenia involving the dorsomedial first metatarsal head, a finding which could represent early changes of osteomyelitis. No permeative bony change. There is a small joint effusion present in the first MCP joint, which could possibly be amenable to aspiration for culture and sensitivities. 2. Subjacent nodular focus of soft tissue enhancement of the palmar aspect abutting the first MCP joint in the thenar eminence as detailed, measuring 2.2 x 1.3 x 1.6 cm, consistent with infectious phlegmonous changes. No formed abscess. 3. Chondrocalcinosis of the wrist suggesting CPPD. 4. 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 Independent Historian Clinical information obtained from an independent historian. History obtained from or confirmed by: Other (Daughter) External Record Review External record reviewed: Outpatient record Prescription Management I considered prescription management with: Pain Medication and Antibiotic Chronic Conditions Patient?s care impacted by: Other (See narrative above) Discharge Plan Discharge Clinical Impression: Cat bite Patient Disposition: Admitted As Inpatient Interventions: Admission Worksheet (ED) Last Done: 08/23/24 17:05
[2024-08-23] MEDS: Ampicillin Sodium/Sulbactam Na 3 GM in 0.9 % Sodium Chloride 100 ML IV ×2 (12:05→21:47)
[2024-08-23] MEDS: 0.9 % Sodium Chloride 1,000 ML 999 ML IV (12:05)
[2024-08-23 12:46] LABS: Erythrocyte Sedimentation Rate 51 MM/HR (0-20)
[2024-08-23] MEDS: iohexoL 350 MG/ML 100 ML INFUS..BTL 85 ML IV (13:15)
--- NOTE | 2024-08-23 15:43 | P.HPHOSP_ITS ---
History of Present Illness Date of Service: 08/23/24 Attending physician on admission: [place] Chief Complaint: Worsening left hand infection Pt is an 88-year-old female with a PMH significant for?paroxysmal AFib on Eliquis, HTN, HLD, and dementia who presents to the ED with left hand cat bite that failed outpatient antibiotic therapy. Patient is alert and oriented to person and place, but not to time or situation. Lives at home with 24 hour care, and HPI supplemented by [facility] SPECIALIST who is at bedside. Two weeks ago patient was bit on the palmar aspect of her left hand by her cat Karl. Soon after developed redness, pain, and swelling and was seen at urgent care on 08/09/2024 where she was prescribed Augmentin x7 days which she took to completion. SC[facility] SPECIALIST reports there was no I&D done. Patient noted no improvement to symptoms and instead had increased pain. Re-presented yesterday to urgent care who told her she needed to come to the ED for further evaluation. ED clinician spoke to Orthopedics who recommended admission for IV antibiotics. Patient complains of left palm and thumb tenderness, but no significant reduction in range of motion. Has not had difficulty grasping objects. Denies fever or chills. Denies any other acute medical complaints. No shortness a breath or difficulty breathing. Denies chest pain/pressure, palpitations. No nausea, vomiting, abdominal pain. ? In the ED pt's vitals were stable and WNL. Labs were significant for ESR 51 and CRP of 1.60, otherwise grossly unremarkable and around baseline for patient. No leukocytosis. Stable H&H. No significant electrolyte abnormalities. Renal function WNL. CT?of left hand with focal osteopenia dorsal medial 1st metatarsal head, possibly representing early changes of osteomyelitis. Also finds phlegmonous changes without a formed abscess. Pt was treated with IVF and Unasyn. Pt will be admitted to the hospital for treatment and further evaluation of left hand cellulitis secondary to cat bite that failed outpatient therapy. Review of Systems 2 Review of Systems: Negative except for that which is noted in the HPI [facility] Medical History HTN (hypertension) Afib Alzheimer's dementia Social History Alcohol intake: former Patient Tobacco Use Status: Never used Tobacco Advance Directives: Yes Advance Directives Information Provided: No Advance Directives on File: No Meds Allergies Allergy/AdvReac Type Severity Reaction Status Date / Time No Known Allergies Allergy Verified 08/23/24 08:47 [No Known Allergies*] Home Medications ?Medication ?Instructions ?Recorded ?Confirmed ?Last Taken ?Type apixaban 5 mg tablet (Eliquis) 5 mg PO BID 08/23/24 Unknown History donepezil 10 mg tablet 10 mg PO DAILY 08/23/24 Unknown History memantine 10 mg tablet 10 mg PO BID 08/23/24 Unknown History metoprolol tartrate 25 mg tablet 25 mg PO BID 08/23/24 Unknown History omeprazole 20 mg capsule,delayed 20 mg PO DAILY 08/23/24 Unknown History release sertraline 100 mg tablet 100 mg PO DAILY 08/23/24 Unknown History simvastatin 20 mg tablet 20 mg PO BEDTIME 08/23/24 Unknown History valsartan 80 mg tablet 80 mg PO DAILY 08/23/24 Unknown History Physical Exam 2 Vital Signs and Narrative: Vital Signs: Last Vital Signs Temp 97.4 F 08/23/24 08:46 Pulse 65 08/23/24 08:46 Resp 18 08/23/24 08:46 BP 137/72 08/23/24 08:46 Pulse Ox 96 08/23/24 08:46 O2 Del Method Room Air 08/23/24 08:46 BMI result Body Mass Index 24.7 General: Alert and oriented to person and place, not to time or situation. In no acute distress Resp: CTA bilaterally CVS: S1, S2, RRR GI: +BS, NT, no distention Skin: Warm, dry Neuro: Cranial nerves II-XII grossly intact bilaterally. Motor grossly intact bilaterally Extremities: No edema. Left hand palmar aspect of 1st digit with swelling, erythema, warmth, and tenderness. As pictured below Psych: Pleasantly confused Results Labs 08/23/24 09:16 08/23/24 09:16 Labs: Laboratory Results - last 24 hr 08/23/24 08/23/24 09:16 11:58 MCV 91.0 MCH 30.7 MCHC 33.7 RDW 13.6 Plt Count 244 D MPV 8.7 L Absolute Nucleated RBC 0.000 Nucleated RBC % (auto) 0.0 ESR 51 H Hold Purple Top SEE NOTE Anion Gap 13 Estim Creat Clear Calc 42.8 Estimated GFR > 60 Random Glucose 98 Calcium 8.9 C-Reactive Protein 1.60 H Imaging Radiologist's Impressions: Impressions Hand CT 08/23/24 11:42 IMPRESSION: 1. Focus of focal osteopenia involving the dorsomedial first metatarsal head, a finding which could represent early changes of osteomyelitis. No permeative bony change. There is a small joint effusion present in the first MCP joint, which could possibly be amenable to aspiration for culture and sensitivities. 2. Subjacent nodular focus of soft tissue enhancement of the palmar aspect abutting the first MCP joint in the thenar eminence as detailed, measuring 2.2 x 1.3 x 1.6 cm, consistent with infectious phlegmonous changes. No formed abscess. 3. Chondrocalcinosis of the wrist suggesting CPPD. 4. 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 Electronically signed by: Mike Torres MD 08/23/2024 02:07 PM [facility] [place] and Plan (1) Cat bite: Status: Acute Plan Pt is an 88-year-old female with a PMH significant for?paroxysmal AFib on Eliquis, HTN, HLD, and dementia who presents to the ED with left hand cat bite that failed outpatient antibiotic therapy. Pt will be admitted to the hospital for treatment and further evaluation of left hand cellulitis secondary to cat bite that failed outpatient therapy. Left hand cat bite Sustained over 2 weeks ago Initially went to urgent care and prescribed Augmentin x7 days, though symptoms have persisted CT of left hand showing focal osteopenia possibly representing early osteomyelitis; also phlegmonous changes without formed abscess No sepsis: No fever, tachycardic, tachypnea, leukocytosis Will treat with Unasyn and vancomycin, started 08/23/2024 Orthopedic consult Paroxysmal AFib Will hold Eliquis for now Anticoagulate with therapeutic Lovenox due to possible surgical procedure Continue metoprolol HLD Continue statin Alzheimer's dementia Continue memantine, donepezil GERD PPI DNR/DNI Attending:?Dr. Bay DVT Prophylaxis: Therapeutic Lovenox Pt will require a hospitalization of at least two nights for treatment of?left hand cellulitis secondary to cat bite that failed outpatient therapy that require administration of IV antibiotics, orthopedics consult, and possible surgical procedure in the OR. Quality Stroke Does the patient have a stroke diagnosis?: No VTE Prior VTE?: No VTE Risk Level:: Medical - moderate - high VTE Device Contraindication: Treatment Not Indicated VTE Drug Contraindication: N/A - Med Ordered
--- NOTE | 2024-08-23 16:58 | PHA.MEDREC ---
Pharmacy Consult ? Medication Reconciliation Pharmacy has completed the medication reconciliation. Patient had a family member/home health provider there with her who had her medication labels from [facility] on hand. Confirmed what she was taking and matched claims . Last took her meds this morning.
[2024-08-23] MEDS: vancomycin HCL 1,500 MG in 0.9 % Sodium Chloride 500 ML 333.33 MG IV (18:14)
[2024-08-23 18:57] VITALS: BP 142/70; PULSE 65; RESP 18; TEMP 36.5; O2SAT 96
[2024-08-23] MEDS: Enoxaparin Sodium 60 MG/0.6 ML SYRINGE SUBCUT (21:47)
[2024-08-23] MEDS: 0.9 % Sodium Chloride Flush 3 ML SYRINGE IVFLUSH (21:47)
[2024-08-23 22:00] VITALS: BP 146/72; PULSE 72; RESP 18; TEMP 36.9; O2SAT 96
[2024-08-23 23:42] VITALS: BMI 25.6
[2024-08-24] VITALS (7 sets, daily range): BP systolic 120–164; BP diastolic 60–74; PULSE 52–64; RESP 15–18; TEMP 36.4–36.9; O2SAT 93–95
[2024-08-24] MEDS: Ampicillin Sodium/Sulbactam Na 3 GM in 0.9 % Sodium Chloride 100 ML IV ×4 (03:29→21:21)
[2024-08-24] MEDS: 0.9 % Sodium Chloride Flush 3 ML SYRINGE IVFLUSH ×3 (08:43→21:22)
[2024-08-24] MEDS: Enoxaparin Sodium 60 MG/0.6 ML SYRINGE SUBCUT (08:43)
--- NOTE | 2024-08-24 08:44 | P.CONOP_ITS ---
History of Present Illness HPI Consult date: 08/24/24 Chief complaint: left hand bite failed outpatient abx Narrative: Ms. Dean is an 88-year-old female who presents emergency department for evaluation. She reports that 2 weeks ago she was bitten by a cat in the palm of her left hand, a few days later she went to [facility] and [place] states there was an abscess that was drained and she received a 7 day course of Augmentin 08/09/2024 and completed the course. She continues to have swelling to the left palm and thumb they went back to urgent care yesterday and was advised to come to emergency department to have further radiographic imaging to rule out deeper space infection. She was admitted to the medicine service with orthopedic consult for further evaluation and treatment. Review of Systems 2 Review of Systems: Yes all other systems are reviewed and are negative PMFSH Past Medical History Medical History HTN (hypertension) Afib Alzheimer's dementia Social History Social History Household Members: Caregiver Housing: House Do you presently have visiting nurse or other home services: No Alcohol intake: former Patient Tobacco Use Status: Never used Tobacco Smoked in Last 30 Days: No Use of substances other than those prescribed or required for medical reasons: No Currently Displaying Signs/Symptoms of Drug Intoxication Withdrawal: No Have you been hit, kicked, punched, or otherwise hurt by someone within the past year? If so, by whom?: No Do you feel safe in your current relationship?: No Current Relationship Is there a partner from a previous relationship who is making you feel unsafe now?: No Are you made to feel afraid or neglected: No Advance Directives: Yes Advance Directives Information Provided: No Advance Directives on File: No Advance Directives Date on File: 08/23/24 Do you have a plan to hurt others: No Plan Recently lost weight without trying: No Nutrition Risks: No Nutritional Risk Patient : No Meds Allergies Allergy/AdvReac Type Severity Reaction Status Date / Time No Known Allergies Allergy Verified 08/23/24 08:47 [No Known Allergies*] Active Medications: Current Medications Acetaminophen (Acetaminophen 325 Mg Tablet) 650 mg PO Q6H PRN PRN Reason: Pain, Mild 1-3,fever,headache Calcium Carbonate (Calcium Carbonate 750 Mg Tab.Chew) 750 mg PO Q4H PRN PRN Reason: Heartburn Enoxaparin Sodium (Enoxaparin Sodium 60 Mg/0.6 Ml Syringe) 60 mg SUBCUT Q12H REPLACED BY [facility] Last Admin: 08/23/24 21:47 Dose: 60 mg Vancomycin HCl 1,000 mg/ (Sodium Chloride) 270 mls @ 270 mls/hr IV Q24H REPLACED BY [facility] Ampicillin Sodium/Sulbactam (Sodium 3 gm/ Sodium Chloride) 100 mls @ 200 mls/hr IV Q6H REPLACED BY [facility] Last Infusion: 08/24/24 04:00 Dose: Infused Magnesium Hydroxide (Milk Of Magnesia 30 Ml Oral.Susp) 30 ml PO DAILY PRN PRN Reason: Constipation Melatonin (Melatonin 3 Mg Tablet) 6 mg PO BEDTIME PRN PRN Reason: Insomnia Ondansetron HCl (Ondansetron Hcl 4 Mg/2 Ml Vial) 4 mg IVPUSH Q8H PRN PRN Reason: Nausea and Vomiting Pharmacy Consult (Consult Rx Vancomycin Dosing) 1 each MISCELLANE DAILY PRN PRN Reason: Consult order Sodium Chloride (0.9 % Sodium Chloride Flush 3 Ml Syringe) 3 ml IVFLUSH QSHIFT REPLACED BY [facility] Last Admin: 08/23/24 21:47 Dose: 3 ml Home Medications ?Medication ?Instructions ?Recorded ?Confirmed ?Last Taken ?Type apixaban 5 mg tablet (Eliquis) 5 mg PO BID 08/23/24 08/23/24 08/23/24 09:00 History donepezil 10 mg tablet 10 mg PO DAILY 08/23/24 08/23/24 08/23/24 09:00 History memantine 10 mg tablet 10 mg PO BID 08/23/24 08/23/24 08/23/24 09:00 History metoprolol tartrate 25 mg tablet 25 mg PO BID 08/23/24 08/23/24 08/23/24 09:00 History omeprazole 20 mg capsule,delayed 20 mg PO DAILY 08/23/24 08/23/24 08/23/24 09:00 History release sertraline 100 mg tablet 100 mg PO DAILY 08/23/24 08/23/24 08/23/24 09:00 History simvastatin 20 mg tablet 20 mg PO BEDTIME 08/23/24 08/23/24 08/23/24 09:00 History valsartan 80 mg tablet 80 mg PO DAILY 08/23/24 08/23/24 08/23/24 09:00 History Physical Exam 2 Vital Signs: Vital Signs: Last Vital Signs Temp 98.1 F 08/24/24 03:37 Pulse 52 08/24/24 03:37 Resp 18 08/24/24 03:37 BP 128/60 08/24/24 08:07 Pulse Ox 95 08/24/24 03:37 O2 Del Method Room Air 08/24/24 03:37 BMI result Body Mass Index 25.6 Const: General: cooperative, healthy appearing and no acute distress Resp: Effort & Inspection: normal respiratory effort and able to speak in complete sentences Extrem: Other: Left hand two small puncture wounds on the thenar emenance. Surrounding ecchymosis with mild erythema. Able to make a closed fist. Able to perform finger reposition and opposition. No pain with axial loading. Sensation intact. Results Labs 08/23/24 09:16 08/23/24 09:16 Labs: Abnormal lab results 08/23/24 08/23/24 Range/Units 09:16 11:58 RBC 4.11 L (4.20-5.50) X10*6/uL MPV 8.7 L (9.4-12.3) fL ESR 51 H (0-20) MM/HR BUN 18 H (9-16) mg/dL C-Reactive Protein 1.60 H (< or = 0.50) mg/dL H & H 08/23/24 Range/Units 09:16 Hgb 12.6 (12.0-16.0) g/dl Hct 37.4 (37.0-47.0) % All other labs normal. Assessment and Plan (1) Cat bite: Status: Acute Plan Continue IV abx Monitor for improving symptoms Encourage gently ROM No evidence of abscess No OR intervention needed at this time Procedures Date of Service Date of Service: 08/24/24
[2024-08-24] MEDS: Valsartan 80 MG TABLET PO (10:57)
[2024-08-24] MEDS: Omeprazole 20 MG CAPSULE.DR PO (10:57)
[2024-08-24] MEDS: Sertraline HCL 100 MG TABLET PO (10:58)
[2024-08-24] MEDS: Memantine HCl 10 MG TABLET PO ×2 (10:58→21:21)
[2024-08-24] MEDS: Donepezil HCl 10 MG TABLET PO (10:58)
[2024-08-24 12:00] LABS: Creatinine Clr Calc Pharmacy 44.1; Estimated Glomerular Filt Rate > 60
--- NOTE | 2024-08-24 12:29 | HO.PM.IMPN ---
Subjective Subjective Date of Service: 08/24/24 Interval History: Seen and evaluated this morning Feels better , less pain and swelling Ortho team rec Abx treatment only No other events Review of Systems Review of Systems: Yes all other systems are reviewed and are negative Physical Exam Vital Signs: Vital Signs: Last Vital Signs Temp 98.1 F 08/24/24 03:37 Pulse 59 08/24/24 10:58 Resp 18 08/24/24 03:37 BP 131/63 08/24/24 10:57 Pulse Ox 95 08/24/24 03:37 O2 Del Method Room Air 08/24/24 03:37 BMI result Body Mass Index 25.6 Const: Other: Constitutional : interactive, not in distress Cardiovascular : no JVP, no lower extremity edema Respiratory : bilateral chest movement, not in resp distress Gastrointestinal: soft, lax, Non tender Skin : Warm, Dry, Decrease swelling in Left thumb base with no erythema or drainage Neurological : Alert & oriented , No focal deficit Objective Data Active Medications Acetaminophen (Acetaminophen 325 Mg Tablet) 650 mg PO Q6H PRN PRN Reason: Pain, Mild 1-3,fever,headache Apixaban (Apixaban 5 Mg Tablet) 5 mg PO BID [facility] Atorvastatin Calcium (Atorvastatin Calcium 10 Mg Tablet) 10 mg PO BEDTIME [facility] Calcium Carbonate (Calcium Carbonate 750 Mg Tab.Chew) 750 mg PO Q4H PRN PRN Reason: Heartburn Donepezil HCl (Donepezil Hcl 10 Mg Tablet) 10 mg PO DAILY [facility] Last Admin: 08/24/24 10:58 Dose: 10 mg Documented By: ISMAEL Vancomycin HCl 1,000 mg/ (Sodium Chloride) 270 mls @ 270 mls/hr IV Q24H [facility] Ampicillin Sodium/Sulbactam (Sodium 3 gm/ Sodium Chloride) 100 mls @ 200 mls/hr IV Q6H [facility] Last Infusion: 08/24/24 09:31 Dose: Infused Documented By: ISMAEL Magnesium Hydroxide (Milk Of Magnesia 30 Ml Oral.Susp) 30 ml PO DAILY PRN PRN Reason: Constipation Melatonin (Melatonin 3 Mg Tablet) 6 mg PO BEDTIME PRN PRN Reason: Insomnia Memantine (Memantine Hcl 10 Mg Tablet) 10 mg PO BID [facility] Last Admin: 08/24/24 10:58 Dose: 10 mg Documented By: ISMAEL Metoprolol Tartrate (Metoprolol Tartrate 25 Mg Tablet) 25 mg PO BID [facility]; Protocol Last Admin: 08/24/24 10:58 Dose: Not Given Documented By: ISMAEL Non-Admin Reason: Decreased Heart Rate Omeprazole (Omeprazole 20 Mg Capsule.Dr) 20 mg PO DAILY@0630 [facility] Last Admin: 08/24/24 10:57 Dose: 20 mg Documented By: ISMAEL Ondansetron HCl (Ondansetron Hcl 4 Mg/2 Ml Vial) 4 mg IVPUSH Q8H PRN PRN Reason: Nausea and Vomiting Pharmacy Consult (Consult Rx Vancomycin Dosing) 1 each MISCELLANE DAILY PRN PRN Reason: Consult order Sertraline HCl (Sertraline Hcl 100 Mg Tablet) 100 mg PO DAILY [facility] Last Admin: 08/24/24 10:58 Dose: 100 mg Documented By: ISMAEL Sodium Chloride (0.9 % Sodium Chloride Flush 3 Ml Syringe) 3 ml IVFLUSH QSHIFT [facility] Last Admin: 08/24/24 08:43 Dose: 3 ml Documented By: IMSAEL Valsartan (Valsartan 80 Mg Tablet) 80 mg PO DAILY [facility]; Protocol Last Admin: 08/24/24 10:57 Dose: 80 mg Documented By: ISMAEL Labs 08/23/24 09:16 08/24/24 11:40 Labs: Laboratory Results - last 24 hr 08/23/24 08/24/24 11:58 11:40 ESR 51 H Estim Creat Clear Calc 44.1 Estimated GFR > 60 Assessment and Plan (1) Cat bite: Status: Acute (2) Phlegmon: Status: Acute Plan Pt is an 88-year-old female with a PMH significant for?paroxysmal AFib on Eliquis, HTN, HLD, and dementia who presents to the ED with left hand cat bite that failed outpatient antibiotic therapy. Pt will be admitted to the hospital for treatment and further evaluation of left hand cellulitis secondary to cat bite that failed outpatient therapy. Left hand cat bite CT of left hand showing dorsomedial focal osteopenia possibly representing early osteomyelitis; also phlegmonous changes without formed abscess Continue Unasyn and vancomycin, started 08/23/2024 Orthopedic has no plans for intervention, rec antibiotics only Discuss with ID for possible OM and need of longer Abx course IV follow Vancomycin trough Paroxysmal AFib restart Eliquis Continue metoprolol HLD Continue statin Alzheimer's dementia Continue memantine, donepezil GERD PPI DNR/DNI DVT Prophylaxis: Laverne Pt will require a hospitalization overnight for treatment of?left hand cellulitis secondary to cat bite that failed outpatient therapy that require administration of IV antibiotics, ID consultation Quality Stroke Does the patient have a stroke diagnosis?: No VTE Prior VTE?: No VTE Risk Level:: Medical - moderate - high VTE Device Contraindication: Treatment Not Indicated VTE Drug Contraindication: N/A - Med Ordered
--- NOTE | 2024-08-24 15:31 | MHC.CM.PN ---
PT WITH DOCUMENTED DEMENTIA CM SPOKE TO PTS DAUGHTER, MAR GOLDSMITH [phone] SHE REPORTS PT HAS A LIVE-IN CAREGIVER PT USES A WALKER PRNoah POSEYMAR STATES SHE IS PTS HCP, COPY ON FILE WITH THE PCP PCP: [facility] DELIVERED DCP: HOME WITH RESUMPTION OF 24/7 CARE CAREGIVER TO TRANSPORT
[2024-08-24] MEDS: vancomycin HCL 1,000 MG in 0.9 % Sodium Chloride 250 ML 270 MG IV (18:17)
[2024-08-24] MEDS: Metoprolol Tartrate 25 MG TABLET PO (21:21)
[2024-08-24] MEDS: Apixaban 5 MG TABLET PO (21:21)
[2024-08-24] MEDS: Atorvastatin Calcium 10 MG TABLET PO (21:21)
--- NOTE | 2024-08-25 | ECG_ITS ---
Test Reason : check QTc Blood Pressure : / mmHG Vent. Rate : 068 BPM Atrial Rate : 000 BPM P-R Int : 000 ms QRS Dur : 086 ms QT Int : 420 ms P-R-T Axes : 000 029 -51 degrees QTc Int : 446 ms Poor data quality, interpretation may be adversely affected Accelerated Junctional rhythm with occasional Premature ventricular complexes Marked ST abnormality, possible inferior subendocardial injury Abnormal ECG When compared with ECG of 09-JUL-2018 08:43, Junctional rhythm has replaced Sinus rhythm ST now depressed in Inferior leads Nonspecific T wave abnormality no longer evident in Lateral leads Referred By: Riley Harris Electronically Signed By:
[2024-08-25] MEDS: Ampicillin Sodium/Sulbactam Na 3 GM in 0.9 % Sodium Chloride 100 ML IV ×3 (03:27→14:25)
[2024-08-25 05:58] VITALS: BP 166/74; PULSE 61; RESP 18; TEMP 36.7; O2SAT 94
[2024-08-25 06:00] VITALS: RESP 18
[2024-08-25] MEDS: Omeprazole 20 MG CAPSULE.DR PO (06:02)
[2024-08-25 06:40] LABS: MANUAL DIFF FLAG NO
[2024-08-25 06:42] LABS: Basophils Percent Auto 0.5 % (0-2); Eosinophils Absolute Auto 0.3 X10*3/uL (0.0-0.4); Eosinophils Percent Auto 5.7 % (0-4); Hematocrit 34.5 % (37.0-47.0); Hemoglobin 11.2 g/dl (12.0-16.0); Imm Gran Abs Auto 0.03 X10*3/uL (0.00-0.03); Imm Gran Pct Auto 0.5 % (0.0-0.4); Lymphocytes Absolute Auto 0.9 X10*3/uL (1.2-4.9); Lymphocytes Percent Auto 15.6 % (20-40); Mean Corpuscular HGB Conc 32.5 g/dl (31.0-35.0); Mean Corpuscular Hemoglobin 29.9 pg (27.0-33.0); Mean Corpuscular Volume 92.2 fL (80.0-98.0); Mean Platelet Volume 8.8 fL (9.4-12.3); Monocytes Absolute Auto 0.6 X10*3/uL (0.1-1.2); Monocytes Percent Auto 9.8 % (2-11); Neutrophils Absolute Auto 3.8 x10*3/uL (2.0-8.3); Neutrophils Percent Auto 67.9 % (45-73); Platelet Count 176 X10*3/uL (160-400); Red Blood Count 3.74 X10*6/uL (4.20-5.50); Red Cell Distribution Width 13.9 % (11.0-16.0); White Blood Count 5.6 X10*3/uL (4.8-10.8)
[2024-08-25 06:57] LABS: Creatinine Clr Calc Pharmacy 44.7; Estimated Glomerular Filt Rate > 60
[2024-08-25 07:18] LABS: Anion Gap 9 (12-20); Blood Urea Nitrogen 10 mg/dL (9-16); Carbon Dioxide 25 mmol/L (22-29); Chloride 113 mmol/L (96-108); Creatinine Clr Calc Pharmacy 44.1; Estimated Glomerular Filt Rate > 60; Glucose Random 90 mg/dL (60-115); Potassium 3.2 mmol/L (3.3-5.1); Sodium 144 mmol/L (135-145)
[2024-08-25 07:33] VITALS: BP 162/70; PULSE 56; RESP 16; TEMP 36.6; O2SAT 94
[2024-08-25] MEDS: Memantine HCl 10 MG TABLET PO (07:53)
[2024-08-25] MEDS: Apixaban 5 MG TABLET PO (07:53)
[2024-08-25] MEDS: Donepezil HCl 10 MG TABLET PO (07:53)
[2024-08-25] MEDS: Sertraline HCL 100 MG TABLET PO (07:54)
[2024-08-25] MEDS: Valsartan 80 MG TABLET PO (07:54)
[2024-08-25] MEDS: 0.9 % Sodium Chloride Flush 3 ML SYRINGE IVFLUSH ×2 (07:58→14:30)
[2024-08-25] MEDS: levoFLOXacin 500 MG TABLET PO (11:53)
--- NOTE | 2024-08-25 11:54 | PM.DS ---
DS: Providers Provider Date of Service: 08/25/24 Date of admission: 08/23/24 16:18 Date of discharge: 08/25/24 Primary care physician: Luisa Scott NP Consults: 08/23/24 16:18 Consult to Orthopedics Routine Consulting Provider[place] [facility] Reason for consultation: Left hand cat bite failed outpatient therapy 08/23/24 18:47 Consult to Wound Care Routine Reason for consultation: per policy 08/24/24 12:33 Consult to Infectious Diseases Routine Consulting Provider[place] [facility] Reason for consultation: Cat bite, CT concerning for OM ? failed OP Abx. DS: Diagnosis Discharge Diagnosis (1) Cat bite: Status: Acute (2) Phlegmon: Status: Acute DS: Summary Hospital Course Hospital Course: Admission note HPI Pt is an 88-year-old female with a PMH significant for?paroxysmal AFib on Eliquis, HTN, HLD, and dementia who presents to the ED with left hand cat bite that failed outpatient antibiotic therapy. Patient is alert and oriented to person and place, but not to time or situation. Lives at home with 24 hour care, and HPI supplemented by [employer] who is at bedside. Two weeks ago patient was bit on the palmar aspect of her left hand by her cat Karl. Soon after developed redness, pain, and swelling and was seen at urgent care on 08/09/2024 where she was prescribed Augmentin x7 days which she took to completion. [employer] reports there was no I&D done. Patient noted no improvement to symptoms and instead had increased pain. Re-presented yesterday to urgent care who told her she needed to come to the ED for further evaluation. ED clinician spoke to Orthopedics who recommended admission for IV antibiotics. Patient complains of left palm and thumb tenderness, but no significant reduction in range of motion. Has not had difficulty grasping objects. Denies fever or chills. Denies any other acute medical complaints. No shortness a breath or difficulty breathing. Denies chest pain/pressure, palpitations. No nausea, vomiting, abdominal pain. ? In the ED pt's vitals were stable and WNL. Labs were significant for ESR 51 and CRP of 1.60, otherwise grossly unremarkable and around baseline for patient. No leukocytosis. Stable H&H. No significant electrolyte abnormalities. Renal function WNL. CT?of left hand with focal osteopenia dorsal medial 1st metatarsal head, possibly representing early changes of osteomyelitis. Also finds phlegmonous changes without a formed abscess. Pt was treated with IVF and Unasyn. Pt will be admitted to the hospital for treatment and further evaluation of left hand cellulitis secondary to cat bite that failed outpatient therapy. Hospital course The patient was admitted to the hospital for treatment of Left hand cellulitis after cat bite and failed outpatient augmentin therapy as CT of left hand showing dorsomedial focal osteopenia possibly representing early osteomyelitis; also phlegmonous changes without formed abscess evaluated by Orthopedic team who recommended no plans for intervention and only antibiotics only. Treated with Unasyn and vancomycin, started 08/23/2024 and discussed with Infectious disease specialist for reported concern of Osteomyelitis in CT scan. Dr Triana recommended trial of 2 weeks of PO Clindamycin and Levaquin for now and outpatient follow up to assess improvement. QTc checked of 440s. I explained to the patient and animal care supervisor the risks of both of these antibiotics including C.Diff, diarrhea, mental status changes and lowering seizure threshold so she can be watched and evaluated in case of any concerns. Discharge plan Continue Antibiotics for 2 weeks as prescribed Follow with your primary care in 2 weeks to assess improvement if you start having more pain, swelling or redness come back to ED for evaluation If you develop abdominal pain and diarrhea get evaluated in ED Time Attestation Discharge Coordination Time (in mins): 42 Quality: Safe Use of Opioids Does Pt have an Active Cancer Diagnosis on the Problem List?: No Quality: Stroke Does the patient have a stroke diagnosis?: No Physical Exam Vital Signs: Vital Signs: Last Vital Signs Temp 97.8 F 08/25/24 07:33 Pulse 56 08/25/24 07:33 Resp 16 08/25/24 07:33 BP 162/70 H 08/25/24 07:33 Pulse Ox 94 08/25/24 07:33 O2 Del Method Room Air 08/25/24 07:33 BMI result Body Mass Index 25.6 Const: Other: Constitutional : interactive, not in distress Cardiovascular : no JVP, no lower extremity edema Respiratory : bilateral chest movement, not in resp distress Gastrointestinal: soft, lax, Non tender Skin : Warm, Dry, no more swelling in Left thumb base with no erythema or drainage Neurological : Alert & oriented , No focal deficit DS: Data Data Completed and Pending Labs on day of discharge: Laboratory Results - last 24 hr 08/24/24 08/25/24 08/25/24 11:40 06:29 06:29 WBC 5.6 RBC 3.74 L Hgb 11.2 L Hct 34.5 L MCV 92.2 MCH 29.9 MCHC 32.5 RDW 13.9 Plt Count 176 D MPV 8.8 L Immature Gran % (Auto) 0.5 H Neut % (Auto) 67.9 Lymph % (Auto) 15.6 L Randolph % (Auto) 9.8 Eos % (Auto) 5.7 H Baso % (Auto) 0.5 Lymph # (Auto) 0.9 L Randolph # (Auto) 0.6 Eos # (Auto) 0.3 Baso # (Auto) 0.0 Abs Immat Gran (auto) 0.03 Absolute Neuts (auto) 3.8 Absolute Nucleated RBC 0.000 Nucleated RBC % (auto) 0.0 Sodium 144 Potassium 3.2 L Chloride 113 H Carbon Dioxide 25 Anion Gap 9 L BUN 10 Creatinine 0.74 0.73 0.74 Estim Creat Clear Calc 44.1 44.7 Estimated GFR > 60 Random Glucose Calcium 08/25/24 08/25/24 06:29 06:29 WBC RBC Hgb Hct MCV MCH MCHC RDW Plt Count MPV Immature Gran % (Auto) Neut % (Auto) Lymph % (Auto) Randolph % (Auto) Eos % (Auto) Baso % (Auto) Lymph # (Auto) Randolph # (Auto) Eos # (Auto) Baso # (Auto) Abs Immat Gran (auto) Absolute Neuts (auto) Absolute Nucleated RBC Nucleated RBC % (auto) Sodium Potassium Chloride Carbon Dioxide Anion Gap BUN Creatinine Estim Creat Clear Calc 44.1 Estimated GFR > 60 > 60 Random Glucose 90 Calcium 8.0 L D Imaging Chest x-ray: Radiologist's impression: ITS Impressions Hand CT 08/23/24 11:42 IMPRESSION: 1. Focus of focal osteopenia involving the dorsomedial first metatarsal head, a finding which could represent early changes of osteomyelitis. No permeative bony change. There is a small joint effusion present in the first MCP joint, which could possibly be amenable to aspiration for culture and sensitivities. 2. Subjacent nodular focus of soft tissue enhancement of the palmar aspect abutting the first MCP joint in the thenar eminence as detailed, measuring 2.2 x 1.3 x 1.6 cm, consistent with infectious phlegmonous changes. No formed abscess. 3. Chondrocalcinosis of the wrist suggesting CPPD. 4. 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 Electronically signed by: Mike Torres MD 08/23/2024 02:07 PM [facility] Discharge Plan Discharge Anticipated Discharge Date/Time: 08/25/24 11:36 Patient Disposition: Home, Self-Care Discharge Diagnosis: Cellulitis, Cat bite disease Referrals: Luisa Scott, [employer]INE[employer] [Primary Care Provider] - 1 Week Discharge Medications: New levofloxacin 500 mg Tablet 500 mg PO Q24H Qty: 14 0RF clindamycin HCl 300 mg capsule 300 mg PO Q6H Qty: 28 0RF Continued (DME) Ultra-Light Rollator Misc See Rx Instructions .Route Qty: 1 0RF Rx Instructions: As directed donepezil 10 mg tablet 10 mg PO DAILY sertraline 100 mg tablet 100 mg PO DAILY valsartan 80 mg tablet 80 mg PO DAILY simvastatin 20 mg tablet 20 mg PO BEDTIME omeprazole 20 mg capsule,delayed release(DR/EC) 20 mg PO DAILY memantine 10 mg tablet 10 mg PO BID metoprolol tartrate 25 mg tablet 25 mg PO BID Eliquis 5 mg tablet 5 mg PO BID Diet: Advance to usual diet Activity on Discharge: As tolerated Stand Alone Forms: Patient Portal Discharge page Print Language: Slovenian Care Plan Goals: Continue Antibiotics for 2 weeks as prescribed Follow with your primary care in 2 weeks to assess improvement if you start having more pain, swelling or redness come back to ED for evaluation If you develop abdominal pain and diarrhea get evaluated in ED Health Concerns: Hand cellulitis Plan of Treatment: Antibiotics Assessment: as above
[2024-08-25] MEDS: Potassium Chloride ER 20 MEQ TAB.ER.PRT 40 MEQ PO (12:09)
[2024-08-25 14:00] VITALS: BP 134/68; PULSE 60; RESP 16; TEMP 36.6; O2SAT 96
--- NOTE | 2024-08-25 15:36 | MHC.CM.PN ---
PT CLEARED TO DC HOME TODAY WITH RESUMPTION OF 20/03 CARE CAREGIVER WILL TRANSPORT VM MESSAGE LEFT FOR PTS DAUGHTER, MAR [phone]
[2024-08-25] MEDS: Clindamycin HCL 300 MG CAPSULE PO (17:06)
--- NOTE | 2024-08-26 00:10 | P.CNID_ITS ---
History of Present Illness Data of Consult Service Date: 08/25/24 Requesting physician: Riley Harris Primary Care Provider: Luisa Scott NP HPI Reason for consult: left hand cat bite She presents with discomfort and swelling left hand. She had cat bite ,not sure if provoked or not by nonrabies suspect cat on 08/09. She received Augmentin on that date and did not improve after seven day course finished. She had reported swelling and redness. Now this is hard to find. Review of Systems 2 Review of Systems: Yes all other systems are reviewed and are negative PMFSH Past Medical History Medical History HTN (hypertension) Afib Alzheimer's dementia Family History Family history: reviewed and not pertinent Social History Social History Household Members: Caregiver Housing: House Do you presently have visiting nurse or other home services: No Alcohol intake: former Patient Tobacco Use Status: Never used Tobacco Advance Directives Date on File: 08/23/24 service: No Meds Allergies Allergy/AdvReac Type Severity Reaction Status Date / Time No Known Allergies Allergy Verified 08/23/24 08:47 [No Known Allergies*] Home Medications ?Medication ?Instructions ?Recorded ?Confirmed ?Last Taken ?Type apixaban 5 mg tablet (Eliquis) 5 mg PO BID 08/23/24 08/23/24 08/23/24 09:00 History donepezil 10 mg tablet 10 mg PO DAILY 08/23/24 08/23/24 08/23/24 09:00 History memantine 10 mg tablet 10 mg PO BID 08/23/24 08/23/24 08/23/24 09:00 History metoprolol tartrate 25 mg tablet 25 mg PO BID 08/23/24 08/23/24 08/23/24 09:00 History omeprazole 20 mg capsule,delayed 20 mg PO DAILY 08/23/24 08/23/24 08/23/24 09:00 History release sertraline 100 mg tablet 100 mg PO DAILY 08/23/24 08/23/24 08/23/24 09:00 History simvastatin 20 mg tablet 20 mg PO BEDTIME 08/23/24 08/23/24 08/23/24 09:00 History valsartan 80 mg tablet 80 mg PO DAILY 08/23/24 08/23/24 08/23/24 09:00 History Physical Exam 2 Vital Signs: Vital Signs: Last Vital Signs Temp 97.8 F 08/25/24 14:00 Pulse 60 08/25/24 14:00 Resp 16 08/25/24 14:00 BP 134/68 08/25/24 14:00 Pulse Ox 96 08/25/24 14:00 O2 Del Method Room Air 08/25/24 14:00 BMI result Body Mass Index 25.6 Const: General: cooperative HEENT: Head: Yes normal to inspection Face and sinus: Yes normal facial exam Mouth: Normal oral and palatal mucosa present Teeth and gingiva: d entition normal Eyes: General: appearance normal, both eyes and all related structures P upils: Equal, round and reactive pupils present Resp: Effort & Inspection: normal respiratory effort Cardio: Rate: regular rate Rhythm: regular rhythm GI: Palpation (GI): Soft to palpation and nontender : General: Yes no CVA tenderness Back/Spine/Pelvis: Back: no CVA tenderness Skin: General skin exam: no rashes or lesions noted Neuro: General: moves all extremities Cranial nerves: Yes Equal, round and reactive pupils present Extrem: Other: resolved left palm redness and swelling General: Yes normal to inspection Psych: Appearance: grossly normal Results Labs 08/25/24 06:29 08/25/24 06:29 Labs: Short CBC 08/25/24 Range/Units 06:29 WBC 5.6 (4.8-10.8) X10*3/uL Hgb 11.2 L (12.0-16.0) g/dl Hct 34.5 L (37.0-47.0) % Plt Count 176 D (160-400) X10*3/uL BMP 08/25/24 08/25/24 06:29 06:29 Sodium 144 Potassium 3.2 L Chloride 113 H Carbon Dioxide 25 BUN 10 Creatinine 0.73 0.74 Calcium 8.0 L D Assessment and Plan (1) Phlegmon: Status: Acute (2) Cat bite: Status: Acute Plan She seems to be doing well. There is no clinical signs of OM and moves hand well. Po Clindamycin and Levaquin for one to two weeks. Watch for diarrhea.
== END 2024-08-25 17:25 | disposition home or self-care (01) | DRG 603 ==
LOC: HO.ED 11:29 → HO.EDOVER 16:30 → HO.S3 16:50
PROVIDERS: Nurse Practitioner Family; Admitting Provider Student in an Organized Health Care Education/Training Program; Emergency Provider Emergency Medicine; PCP Nurse Practitioner Family; Visit Provider Student in an Organized Health Care Education/Training Program
DX: L03.114 Cellulitis of left upper limb (principal); L02.512 Cutaneous abscess of left hand; G30.9 Alzheimer's disease, unspecified; I10 Essential (primary) hypertension; Z66 Do not resuscitate; S61.432A Puncture wound without foreign body of left hand, initial encounter; W55.01XA Bitten by cat, initial encounter; F02.80 Dementia in other diseases classified elsewhere, unspecified severity, without behavioral disturbance, psychotic disturbance, mood disturbance, and anxiety; E78.5 Hyperlipidemia, unspecified; I48.0 Paroxysmal atrial fibrillation; K21.9 Gastro-esophageal reflux disease without esophagitis; Z79.01 Long term (current) use of anticoagulants; Z79.899 Other long term (current) drug therapy
CPT/HCPCS: 36415; 73201; 80048; 82565; 85025; 85027; 85652; 86140; 93005; 99285; J0295; J1650; J3370; J3371; Q9967

== ENCOUNTER → 2024-08-23 11:42 | Outpatient (BNV) | payer MEDICARE, OTHER, SELFPAY | PROVIDERS: Emergency Provider Emergency Medicine; PCP Nurse Practitioner Family; Visit Provider Radiology Diagnostic Radiology | DX: M25.442 Effusion, left hand (principal); M01.X42 Direct infection of left hand in infectious and parasitic diseases classified elsewhere; M11.242 Other chondrocalcinosis, left hand | CPT/HCPCS: 73201 ==

== ENCOUNTER → 2024-08-23 16:18 | Outpatient (BNV) | payer MEDICARE, OTHER, SELFPAY | PROVIDERS: Admitting Provider Student in an Organized Health Care Education/Training Program; Emergency Provider Emergency Medicine; PCP Nurse Practitioner Family; Visit Provider Student in an Organized Health Care Education/Training Program | DX: L02.414 Cutaneous abscess of left upper limb (principal); W55.01XA Bitten by cat, initial encounter | CPT/HCPCS: 99232 ==

== ENCOUNTER → 2024-08-23 16:18 | Outpatient (BNV) | payer MEDICARE, OTHER, SELFPAY | PROVIDERS: Admitting Provider Student in an Organized Health Care Education/Training Program; Emergency Provider Emergency Medicine; PCP Nurse Practitioner Family; Visit Provider Physician Assistant | DX: R22.32 Localized swelling, mass and lump, left upper limb (principal); W55.01XA Bitten by cat, initial encounter | CPT/HCPCS: 99222 ==

== ENCOUNTER → 2024-08-23 16:18 | Outpatient (BNV) | payer MEDICARE, OTHER, SELFPAY | PROVIDERS: Admitting Provider Student in an Organized Health Care Education/Training Program; Emergency Provider Emergency Medicine; PCP Nurse Practitioner Family; Visit Provider Internal Medicine | DX: L02.91 Cutaneous abscess, unspecified (principal); W55.01XA Bitten by cat, initial encounter | CPT/HCPCS: 99221 ==

== ENCOUNTER 2024-09-16 10:25 | Emergency (ER) | payer MEDICARE, OTHER, SELFPAY ==
--- NOTE | ~2024-09-16 | XR_ITS ---
EXAMINATION: XR WRIST 3 OR MORE VIEWS LEFT HISTORY: fall painful COMPARISON: Correlation is made with a CT of the left hand and wrist dated 08/23/2024. FINDINGS: Three views of the left wrist are submitted. The bones are osteopenic. There is a nondisplaced oblique fracture of the distal ulnar diaphysis. No additional fracture is seen. There is no dislocation. 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 There is chondrocalcinosis. XR/XR wrist LT min 3V IMPRESSION: Nondisplaced oblique fracture of the distal ulnar diaphysis. Electronically signed by: Red Villalobos MD 09/16/2024 11:25 AM [facility]
--- NOTE | ~2024-09-16 | XR_ITS ---
EXAMINATION: XR ELBOW 3 VIEWS LEFT HISTORY: painful bruised fall COMPARISON: There are no prior studies available for comparison. FINDINGS: Three views of the left elbow are submitted. Osseous mineralization is normal. There is no fracture or dislocation. The joint spaces are preserved. Tiny calcification adjacent to the medial epicondyles the humerus is likely ligamentous in nature. XR/XR elbow LT min 3V IMPRESSION: No evidence of fracture of the left elbow. Electronically signed by: Red Villalobos MD 09/16/2024 11:22 AM [facility]
[2024-09-16 10:40] VITALS: BP 156/47; PULSE 57; RESP 16; TEMP 36.6; O2SAT 95; BMI 23.8
--- NOTE | 2024-09-16 13:35 | ED_ITS ---
HPI - Extremity Problem General Chief complaint: Extremity Injury, Upper Stated complaint: L arm inj 1 week ago Time Seen by Provider: 09/16/24 13:05 Source: patient Mode of arrival: ambulatory Limitations: no limitations History of Present Illness ED Provider: Carmen Cotton APRN HPI Narrative: 89 yo female with history of paroxysmal AFib on Eliquis, HTN, HLD, and dementia, right hand dominant here with complaints of left wrist pain after a trip and fall on 09/11. Per DRAWER UPFITTER she was walking the patient out of a doctors office when the patient tripped on the front of her shoe causing her to fall landing on the LUE. Per DRAWER UPFITTER she was holding on to the right side of the patient and then patient never hit her head or had any LOC. Initially the patient was not complaining of much pain but over the last few days she has had increasing pain unrelieved with APAP at home. Of note, patient had an admission for a cat bite to the left hand and was discharged 08/25 on Levaquin and clindamycin which she has completed. Per family and her DRAWER UPFITTER patient had no residual swelling or redness from this bite and her arm was looking normal until this fall. Patient reports pain in the wrist and denies numbness, tingling or fever. Patient is alert and oriented x 2 which is her baseline per family. She lives with a 24 hr DRAWER UPFITTER Related Data Home Medications ?Medication ?Instructions ?Recorded ?Confirmed apixaban 5 mg tablet (Eliquis) 5 mg PO BID 08/23/24 08/23/24 donepezil 10 mg tablet 10 mg PO DAILY 08/23/24 08/23/24 memantine 10 mg tablet 10 mg PO BID 08/23/24 08/23/24 metoprolol tartrate 25 mg tablet 25 mg PO BID 08/23/24 08/23/24 omeprazole 20 mg capsule,delayed 20 mg PO DAILY 08/23/24 08/23/24 release sertraline 100 mg tablet 100 mg PO DAILY 08/23/24 08/23/24 simvastatin 20 mg tablet 20 mg PO BEDTIME 08/23/24 08/23/24 valsartan 80 mg tablet 80 mg PO DAILY 08/23/24 08/23/24 Previous Rx's ?Medication ?Instructions ?Recorded walker (Ultra-Light Rollator [facility]) #1 ea 02/26/24 clindamycin HCl 300 mg capsule 300 mg PO Q6H #28 caps 08/25/24 levofloxacin 500 mg tablet 500 mg PO Q24H #14 tabs 08/25/24 oxycodone 5 mg tablet 2.5 mg (1/2 x 5 mg) PO Q8H PRN 09/16/24 pain #9 tabs Allergies Allergy/AdvReac Type Severity Reaction Status Date / Time No Known Allergies Allergy Verified 09/16/24 10:44 [No Known Allergies*] Review of Systems Review of Systems: Yes all other systems are reviewed and are negative Constitutional: Constitutional: Reports no additional constitutional complaints, Denies body ache(s), Denies chills, Denies fever(s), Denies headache(s) and Denies weakness Eyes: Eyes: Reports no additional eye complaints and Denies change in vision ENT: Reports system reviewed and no additional complaints, except as documented, Denies dizziness, Denies headache(s), Denies nasal congestion, De nies nasal discharge and Denies neck pain Cardiovascular: Cardiovascular: Reports no additional cardiovascular complaints, Denies chest pain, Denies leg edema and Denies dyspnea Respiratory: Respiratory: Reports no additional respiratory complaints, Denies cough and Denies dyspnea Gastrointestinal: Gastrointestinal: Reports no additional gastrointestinal complaints, Denies abdominal pain, Denies diarrhea, Denies nausea and Denies vomiting Genitourinary: Genitourinary: Reports no additional female genitourinary complaints and Denies urinary incontinence Musculoskeletal: Musculoskeletal: Reports no additional musculoskeletal complaints, Denies back pain, Reports arthralgias, Reports joint swelling, Denies limited range of motion, Denies neck pain, Denies numbness and Denies tingling Integumentary/Breasts: Skin/Breast: Reports system reviewed and no additional complaints, except as docu and Denies rash Neurologic: Reports system reviewed and no additional complaints, except as documented, Denies Abnormal speech present, Denies dizziness, Denies headache(s), Denies numbness, Denies tingling and Denies weakness PMFSH Past Medical History Attestation statement: The following information was validated with the patient. Source: old records reviewed and nursing notes reviewed Medical History HTN (hypertension) Afib Alzheimer's dementia Social History Social History Household Members: Caregiver Housing: House Do you presently have visiting nurse or other home services: No Alcohol intake: former Patient Tobacco Use Status: Never used Tobacco Advance Directives: Yes Advance Directives on File: Yes Advance Directives Date on File: 08/23/24 Do you have a plan to hurt others: No Plan service: No Physical Exam Vital Signs: Vital Signs: Last Vital Signs Temp 97.8 F 09/16/24 13:57 Pulse 89 09/16/24 13:57 Resp 18 09/16/24 13:57 BP 170/72 H 09/16/24 13:57 Pulse Ox 97 09/16/24 13:57 O2 Del Method Room Air 09/16/24 13:57 BMI result Body Mass Index 23.8 Const: General: cooperative, healthy appearing, comfortable and no acute distress Orientation/consciousness: oriented to person and oriented to place Limitations: no limitations HEENT: Head: Yes normal to inspection Ears: hearing grossly normal bilaterally General nose exam: Normal external nose present Face and sinus: Yes normal facial exam Mouth: Normal oral and palatal mucosa present Throat: Yes posterior oropharynx normal Eyes: General: appearance normal, both eyes and all related structures Pupils: Equal, round and reactive pupils present Neck: Neck: Yes normal visual inspection Chest: Chest palpation & inspection: normal inspection of the chest Resp: Effort & Inspection: normal respiratory effort Auscultation: clear to auscultation bilaterally Cardio: Rate: regular rate Rhythm: regular rhythm Peripheral pulses: Peripheral pulses 2+ throughout GI: Inspection: Yes normal to inspection Palpation (GI): Soft to palpation and nontender Auscultation: normal bowel sounds Back/Spine/Pelvis: Thoracic/Lumbar Spine: thoracic and lumbar spine normal to inspection Skin: General skin exam: no rashes or lesions noted Neuro: General: oriented to person, oriented to place, moves all extremities, no focal motor deficits and normal sensation to monofilament Cranial nerves: Yes CN's II-XII intact bilaterally, Yes Equal, round and reactive pupils present, Yes Bilaterally intact EOM present, Yes Nystagmus not present, Yes Normal facial strength present and Yes Midline tongue present Cognition (Neuro): normal cognition Speech: No Abnormal speech present Gait exam (Neuro): Normal gait present Motor exam (neuro): 5/5 motor strength present throughout Extrem: Other: There is swelling to the left wrist w/ ecchymosis noted over the forearm. 2+ radial/ulnar pulses. Normal sensation. Surprisingly patient has full active/passive ROM of the left wrist/hand/elbow I do not appreciate any warmth or redness Medical Decision Making Medical Decision Making MDM Narrative: 89 yo female with history of paroxysmal AFib on Eliquis, HTN, HLD, and dementia, right hand dominant here with complaints of left wrist pain after a trip and fall on 09/11. Per DRAWER UPFITTER she was walking the patient out of a doctors office when the patient tripped on the front of her shoe causing her to fall landing on the LUE. Per DRAWER UPFITTER she was holding on to the right side of the patient and then patient never hit her head or had any LOC. Initially the patient was not complaining of much pain but over the last few days she has had increasing pain unrelieved with APAP at home. Of note, patient had an admission for a cat bite to the left hand and was discharged 08/25 on Levaquin and clindamycin which she has completed. Per family and her DRAWER UPFITTER patient had no residual swelling or redness from this bite and her arm was looking normal until this fall. Patient reports pain in the wrist and denies numbness, tingling or fever. Patient is alert and oriented x 2 which is her baseline per family. She lives with a 24 hr DRAWER UPFITTER There is swelling to the left wrist w/ ecchymosis noted over the forearm. 2+ radial/ulnar pulses. Normal sensation. Surprisingly patient has full active/passive ROM of the left wrist/hand/elbow I do not appreciate any warmth or redness X-rays ordered D/w CT head but family is insistent there was no head strike and this was a witnessed fall. In addition it occurred >5 days ago. I did offer CT and we discussed patient AC therapy but family declined this, did not feel necessary. Differential Diagnosis Differential Diagnoses: The differential diagnosis associated with the present ation includes fracture, sprain, strain low suspicion for dislocation, vascular injury, cellulites based on clinical exam Admission/Observation Consideration of admission/observation: Escalation of care including admission/observation considered Independent Interpretation I performed an independent interpretation of an: Plain X-Ray Radiology Impression Discussion of test interpretation with radiology: I have reviewed the radi ologist's reading. Radiologist Impression: [address] [address] XRay Report Signed Patient: Ainsley Dean MR#: [id number] : 1935 Acct:[id number] Age/Sex: 89 / F ADM Date: 09/16/24 Loc: HO.ED Attending Dr: Ordering Physician: Generic ED Physician Date of Service: 09/16/24 Procedure(s): XR wrist LT min 3V Accession Number(s): [id number] cc: Luisa Scott UNDERWATER WELDER; Generic ED Physician~ EXAMINATION: XR WRIST 3 OR MORE VIEWS LEFT HISTORY: fall painful COMPARISON: Correlation is made with a CT of the left hand and wrist dated 08/23/2024. FINDINGS: Three views of the left wrist are submitted. The bones are osteopenic. There is a nondisplaced oblique fracture of the distal ulnar diaphysis. No additional fracture is seen. There is no dislocation. 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 There is chondrocalcinosis. XR/XR wrist LT min 3V IMPRESSION: Nondisplaced oblique fracture of the distal ulnar diaphysis. Electronically signed by: Red Villalobos MD 09/16/2024 11:25 AM [facility] [address] [address] XRay Report Signed Patient: Ainsley Dean MR#: [id number] : 1935 Acct:[id number] Age/Sex: 89 / F ADM Date: 09/16/24 Loc: HO.ED Attending Dr: Ordering Physician: Generic ED Physician Date of Service: 09/16/24 Procedure(s): XR elbow LT min 3V Accession Number(s): [id number] cc: Luisa Scott NP; Generic ED Physician~ EXAMINATION: XR ELBOW 3 VIEWS LEFT HISTORY: painful bruised fall COMPARISON: There are no prior studies available for comparison. FINDINGS: Three views of the left elbow are submitted. Osseous mineralization is normal. There is no fracture or dislocation. The joint spaces are preserved. Tiny calcification adjacent to the medial epicondyles the humerus is likely ligamentous in nature. XR/XR elbow LT min 3V IMPRESSION: No evidence of fracture of the left elbow. Electronically signed by: Red Villalobos MD 09/16/2024 11:22 AM [facility] Independent Historian Clinical information obtained from an independent historian. History obtained from or confirmed by: Other (2 daughters and DRAWER UPFITTER) External Record Review External record reviewed: Inpatient record Tests considered The following testing was considered but not selected: low suspicion for dislocation, vascular injury, cellulites based on clinical exam requiring advanced imaging Prescription Management I considered prescription management with: Pain Medication Chronic Conditions Patient?s care impacted by: Other (dementia ) Procedures Orthopedic Splinting/Casting Injury #1: Side: left Upper Extremity Injury Location: wrist Upper Extremity Immobilizer: sugar tong splint Discharge Plan Discharge Clinical Impression: Arm fracture, left Patient Disposition: Home, Self-Care Instructions: Arm Fracture in Adults (ED), How to Use a Sling (ED), Splint Care (ED) Additional Instructions: keep the splint clean and dry Elevate the extremity Call orthopedics tomorrow to follow-up The careful when taking pain medication as it may make you more at risk for falls Return for any worsening symptoms Prescriptions: New oxycodone 5 mg tablet 2.5 mg PO Q8H PRN (Reason: pain) Qty: 9 0RF Rx Instructions: Partial Fill upon patient request. No Action (DME) Ultra-Light Rollator Misc See Rx Instructions .Route Qty: 1 0RF Rx Instructions: As directed donepezil 10 mg tablet 10 mg PO DAILY sertraline 100 mg tablet 100 mg PO DAILY valsartan 80 mg tablet 80 mg PO DAILY simvastatin 20 mg tablet 20 mg PO BEDTIME omeprazole 20 mg capsule,delayed release(DR/EC) 20 mg PO DAILY memantine 10 mg tablet 10 mg PO BID metoprolol tartrate 25 mg tablet 25 mg PO BID Eliquis 5 mg tablet 5 mg PO BID levofloxacin 500 mg Tablet 500 mg PO Q24H Qty: 14 0RF clindamycin HCl 300 mg capsule 300 mg PO Q6H Qty: 28 0RF Referrals: [facility] Orthopedic Surgeons [Provider Group] - 1 week Interventions: ED Discharge Assessment Last Done: 09/16/24 13:57 Discharge Date/Time: 09/16/24 13:58 Print Language: Uzbek
[2024-09-16 13:54] VITALS: BP 170/72; PULSE 89; RESP 18; TEMP 36.6; O2SAT 97
[2024-09-16 13:57] VITALS: BP 170/72; PULSE 89; RESP 18; TEMP 36.6; O2SAT 97
--- OUTSIDE RECORDS SUMMARY | 2024-09-16 14:50 | XMS_ITS | Continuity of Care Document ---
Author Organization [facility] Address [address] [place] [address]- Support Name Relationship Address Phone JERMAINE, EMILIE [...] JERMAINE, EMILIE Personal Relationship Unknown Unav ailable JERMAIEN, EMILIE Personal Relationship Unknown Unav ailable JERMAINE, [...] Unknown Unav ailable Care Team Providers Care Professor Of Journalism Name Role Phone Tyler Luisa CROCKER Primary Care Physician [phone] Encounter [facility] Date(s): 07/29/24 - 08/28/24 [facility] [address] [place], [place] [address] Encounter Type: Triage Allergies, Adverse Reactions, Alerts No Known Allergies Immunizations Given and Recorded Vaccine Date Status Refusal Reason RSV vaccine preF3, recombinant 07/19/24 Recorded SARS-CoV-2(COVID-19)mRNA-LNP vac([id number]) 07/12/24 Recorded influenza virus vaccine, inactivated 1 [...] pneumococcal 20-valent conjugate vaccine 7 03/21/23 Given [id number] 12y+ bivalent booster vax 06/01/22 Recorded [id number] 12y+ bivalent booster vax 05/28/22 Recorded Influenza Virus Vaccine (oldterm) 05/28/22 Recorde d Influenza Virus Vaccine (oldterm) 8 06/06/20 Recor ded Influenza Virus Vaccine (oldterm) 06/17/19 Recorde d Influenza Virus Vaccine (oldterm) 06/04/08 Given tetanus/diphtheria/pertussis, acel(Tdap) 05/26/22 Given SARS-CoV-2 mRNA ([id number]) vax 9 03/16/22 Given SARS-CoV-2 (COVID-19) mRNA [...] Pneumococcal Vacc (oldterm) 10/26/01 Given 1Result Comment: [id number] Checklist completed 2Result Comment: [facility]08/2018[facility] Comment[facility]/2017] [facility] [id number] HD 4Result Comment: [06/06/2016] [facility] 5[facility] Note[facility] 6Admin Note: GIVEN IN [facility] 7Result Comment: [id number] 8Result Comment: [facility] 9Result Comment: [facility]# [id number] 10Admin Note: [facility] 11Admin Note: Jumbas [facility] VIS [id number] given Medications Daily Hemalatha oral tablet 1 tablet, By Mouth, Daily, # 90 tablet, 1 Refills, Maintenance, 04/04/24 7:52:00 AM EDT, [facility], 90, TAKE ONE TABLET BY MOUTH EVERY DAY, 162.56, cm, 01/09/24 9:34:00 EDT, Height Start Date: 04/04/24 Status: Ordered Quantity: 90.0 Unit: tablet Repeat number: 1 donepezil 10 mg oral tablet 1, tablet, By Mouth, Daily at bedtime, # 30 tablet, Refills 5, Maintenance, 08/26/24 11:30:00 PM EST, Route to Pharmacy Electronically, [facility], 162.56, cm, 07/11/24 11:36:00 EST, Height Start Date: 08/26/24 Status: Ordered Quantity: 30.0 Unit: tablet Repeat number: 1 Eliquis 5 mg oral tablet 1 tablet = 5 mg, By Mouth, 2 times a day, # 56 tablet, 3 Refills, Maintenance, 07/29/24 3:26:00 PM EST, [facility] # [facility], 162.56, cm, 07/11/24 11:36:00 EST, Height Start Date: 07/29/24 Stop Date: 11/18/24 Status: Ordered Quantity: 56.0 Unit: tablet Repeat number: 4 memantine 10 mg oral tablet 1 tablet, By Mouth, 2 times a day, # 60 tablet, 5 Refills, Maintenance, 08/26/24 11:31:00 PM EST, [facility] # [facility], 162.56, cm, 07/11/24 11:36:00 EST, Height Start Date: 08/26/24 Status: Ordered Quantity: 60.0 Unit: tablet Repeat number: 1 Metoprolol Tartrate 25 mg oral tablet 1 tablet, By Mouth, 2 times a day, # 56 tablet, 5 Refills, Maintenance, 06/27/24 2:47:00 PM EDT, [facility] # [facility], 162.56, cm, 01/09/24 9:34:00 EDT, Height Start Date: 06/27/24 Status: Ordered Quantity: 56.0 Unit: tablet Repeat number: 1 omeprazole 20 mg oral enteric coated capsule 1 capsule, By Mouth, Daily, # 28 capsule, 5 Refills, Maintenance, 02/07/24 4:04:00 AM EDT, [facility] # [facility], 162.56, cm, 01/09/24 9:34:00 [...] tab for a total of 150mg/day, # 28 tablet, 2 Refills, Maintenance, 08/27/24 10:28:00 AM EST, Tablet, [facility] # [facility], 162.56, cm, 07/11/24 11:36:00 EST, Height Start Date: 08/27/24 Status: Ordered Quantity: 28.0 Unit: tablet Repeat number: 3 sertraline 50 mg oral tablet 1 tablet = 50 mg, By Mouth, Daily, Take in addition to 100mg tab for a total of 150mg/day, # 28 tablet, 2 Refills, Maintenance, 08/27/24 10:28:00 AM EST, Tablet, [facility] # [facility], 162.56, cm, 07/11/24 11:36:00 EST, Height Start Date: 08/27/24 Status: Ordered Quantity: 28.0 Unit: tablet Repeat number: 3 simvastatin 20 mg oral tablet 1, tablet, By Mouth, Daily at bedtime, # 28 tablet, Refills 5, Maintenance, 06/27/24 2:46:00 PM EDT, Route to Pharmacy Electronically, [facility], 162.56, cm, 01/09/24 9:34:00 EDT, Height Start Date: 06/27/24 Status: Ordered Quantity: 28.0 Unit: tablet Repeat number: 1 valsartan 80 mg oral tablet 1, tablet, By Mouth, Daily, # 28 tablet, Refills 5, Maintenance, 06/27/24 2:46:00 PM EDT, Route to Pharmacy Electronically, [facility] # [facility], 162.56, cm, 01/09/24 9:34:00 [...] Osteopenia Confirmed Active AF (paroxysmal atrial fibrillation) [id number] score 4 Confirmed Active Abnormal plasma protein test;faint IGM Confirmed Active Thyroid nodules, bilateral Confirmed Active Social History Social History Type Response Smoking Status Never smoker entered on: 01/30/14 Sex Sex Representation Female (finding) Patient Care team information Care Team Personnel Name: Luisa Scott NP Position: S PCO Associate Professional Member Role: PCP Address: [address] [place] [address] Telecom: Care Team Related Persons Name: MAR GOLDSMITH Name: MAR GOLDSMITH Name: Mar Goldsmith Name: EMILIE GOLDSMITH Name: CARLOS GOLDSMITH Name: CARLOS GOLDSMITH Insurance Providers Guarantor name: RENUKA GOLDSMITH Health Plan Information #: 1 Payer: MEDICARE PART B OUTPT Member Number: NA Policy Number: NA Group Number: NA
--- OUTSIDE RECORDS SUMMARY | 2024-09-16 14:50 | XMS_ITS | Data Portability ---
Author Organization [place] [facility] Address [address] [place] [address] Assessment Encounter Date Assessment Date Assessment LastModified [...] pain/tenderness, no redness/warmth, she is on eliquis rat exterminator, do not suspect any clotting IT [...] Total Hysterectomy completed NACHO Olivares [address] [place], [address], [place] [facility] 02/21/[facility]22 14:52:28 Imaging Results None recorded. Procedure [...] /min 140 mm[Hg] 78 mm[Hg] Not Available [facility] 14:52:13 Social History Question Answer Notes LastModified by Organizat ion Details LastModified Time Tobacco Smoking Status Never Smoker NACHO Olivares [address] [place], [address], [place] [facility] 02/21/2022 14:52:15 What Is Your Level Of [...] available 2021 14:51:56 Medical History Condition Response Diabetes N Coronary Artery Disease N CHF N Parkinson's Disease N Cancer N Dementia Y Stroke N Depression Y Asthma N COPD N Hypothyroidism N High Cholesterol Y Rheumatoid Arthritis N Pulmonary Embolism Y Hypertension Y A-fib Y Osteoporosis N Kidney Disease Y Gynecological HistoryNo gynecological history recorded. 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 NACHO Olivares [address], [place], [address], [place] [facility] 02/25/2022 12:15:07 OBGyn Episode No OBEpisode recorded.
== END 2024-09-16 13:58 | disposition home or self-care (01) ==
PROVIDERS: Emergency Provider Emergency Medicine; PCP Nurse Practitioner Family
DX: S52.692A Other fracture of lower end of left ulna, initial encounter for closed fracture (principal); W01.0XXA Fall on same level from slipping, tripping and stumbling without subsequent striking against object, initial encounter; M25.532 Pain in left wrist; I10 Essential (primary) hypertension; I48.0 Paroxysmal atrial fibrillation; Y93.89 Activity, other specified; Y92.531 Health care provider office as the place of occurrence of the external cause; Y99.9 Unspecified external cause status; Z79.01 Long term (current) use of anticoagulants; Z79.899 Other long term (current) drug therapy
CPT/HCPCS: 29125; 73080; 73110; 99282; 99284

== ENCOUNTER → 2024-09-16 11:00 | Outpatient (BNV) | payer MEDICARE, OTHER, SELFPAY | PROVIDERS: PCP Nurse Practitioner Family; Visit Provider Radiology Diagnostic Radiology | DX: M25.522 Pain in left elbow (principal); M25.532 Pain in left wrist | CPT/HCPCS: 73080; 73110 ==

== ENCOUNTER 2024-09-19 10:47 | Outpatient (REF) | payer MEDICARE, OTHER, SELFPAY ==
--- NOTE | ~2024-09-19 | XR_ITS ---
EXAMINATION: XR WRIST 3 OR MORE VIEWS LEFT HISTORY: M25.532 - Pain in left wrist COMPARISON: Comparison is made with the prior examination dated 09/16/2024. FINDINGS: Three views of the left wrist are submitted. The bones are osteopenic. Again seen is a minimally displaced oblique fracture of the distal ulnar diaphysis. There is slightly greater displacement and angulation than on the prior study. 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 The soft tissues are unremarkable. XR/XR wrist LT min 3V IMPRESSION: Minimally displaced oblique fracture of the distal ulnar diaphysis as described. Electronically signed by: Red Villalobos MD 09/19/2024 03:34 PM [facility]
--- OUTSIDE RECORDS SUMMARY | 2024-09-19 12:52 | XMS_ITS | Continuity of Care Document ---
Author Organization [facility] Address [address] [place] [address]- Support Name Relationship Address Phone JERMAINE, EMILIE [...] Unknown Unav ailable Care Team Providers Care Wood Craftsman Name Role Phone Tyler Luisa CROCKER Primary Care Physician [place] [facility] Date([place] 09/11/24 - 09/18/24 [facility] Adult [address] [place] [address]- Encounter Diagnosis Cellulitis of left hand(Discharge Diagnosis) - 09/11/24 Chronic kidney disease (CKD), stage G3a(Discharge Diagnosis) - 09/11/24 Alzheimer's disease (per neurology)(Discharge Diagnosis) - 09/11/24 Hypertension(Discharge Diagnosis) - 09/11/24 AF (paroxysmal atrial fibrillation) [id number] score 4(Discharge Diagnosis) - 09/11/24 Attending Physician: Not on Staff, Attending MD Encounter Type: Office Visit Allergies, Adverse Reactions, Alerts No Known Allergies Immunizations Given and Recorded Vaccine Date Status Refusal Reason RSV vaccine preF3, recombinant 07/19/24 Recorded SARS-CoV-2(COVID-19)mRNA-LNP vac(rld710) 07/12/24 Recorded influenza virus vaccine, inactivated 1 [...] pneumococcal 20-valent conjugate vaccine 7 03/21/23 Given TRLL-PkU-5aOPL 12y+ bivalent booster vax 06/01/22 Recorded XLBM-ZbD-1fKJG 12y+ bivalent booster vax 05/28/22 Recorded Influenza Virus Vaccine (oldterm) 05/28/22 Recorde d Influenza Virus Vaccine (oldterm) 8 06/06/20 Recor ded Influenza Virus Vaccine (oldterm) 06/17/19 Recorde d Influenza Virus Vaccine (oldterm) 06/04/08 Given tetanus/diphtheria/pertussis, acel(Tdap) 05/26/22 Given SARS-CoV-2 mRNA (raagmew-zxrb-ghveg) vax 9 03/16/22 Given SARS-CoV-2 (COVID-19) mRNA [...] Pneumococcal Vacc (oldterm) 10/26/01 Given 1Result Comment: [id number] Checklist completed [facility] 3Result Comment: [05/29/2017] [facility] [id number] HD 4Result Comment: [06/06/2016] [facility]- [facility]ose 5Admin Note: [facility] 6Admin Note: GIVEN IN CLINIC [facility] 7Result Comment: [id number] 8[facility]: [facility] 9Result Comment: [facility]# [id number] 10Admin Note: FLU CLINIC 11Admin Note: [facility] VIS [id number] given Medications Daily Hemalatha oral tablet 1 tablet, By Mouth, Daily, # 90 tablet, 1 Refills, Maintenance, 04/04/24 7:52:00 AM EDT, [facility], 90, TAKE ONE TABLET BY MOUTH EVERY DAY, 162.56, cm, 01/09/24 9:34:00 EDT, Height Start Date: 04/04/24 Status: Ordered Quantity: 90.0 Unit: tablet Repeat number: 1 donepezil 10 mg oral tablet 1, tablet, By Mouth, Daily at bedtime, # 30 tablet, Refills 5, Maintenance, 08/26/24 11:30:00 PM EST, [facility] to [facility]ically[facility] 5 Refills, Maintenance, 08/26/24 11:31:00 PM EST, [facility] [...] Refills, Maintenance, 08/27/24 10:28:00 AM EST, Tablet, [facility] # [facility], 162.56, cm, 07/11/24 11:36:00 EST, Height Start Date: 08/27/24 Status: Ordered Quantity: 28.0 Unit: tablet Repeat number: 3 sertraline 50 mg oral tablet 1 tablet = 50 mg, By Mouth, Daily, Take in addition to 100mg tab for a total of 150mg/day, # 28 tablet, 2 Refills, Maintenance, 08/27/24 10:28:00 AM EST, Tablet, [facility] # [facility], 162.56, cm, 07/11/24 11:36:00 EST, Height Start Date: 08/27/24 Status: Ordered Quantity: 28.0 Unit: tablet Repeat number: 3 simvastatin 20 mg oral tablet 1, tablet, By Mouth, Daily at bedtime, # 28 tablet, Refills 5, Maintenance, 06/27/24 2:46:00 PM EDT, Route to Pharmacy Electronically, [facility] # [facility], 162.56, cm, 01/09/24 9:34:00 EDT, Height Start Date: 06/27/24 Status: Ordered Quantity: 28.0 Unit: tablet Repeat number: 1 valsartan 80 mg oral tablet 1, tablet, By Mouth, Daily, # 28 tablet, Refills 5, Maintenance, 06/27/24 2:46:00 PM EDT, Route to Pharmacy Electronically, [facility] # [facility], 162.56, cm, 01/09/24 9:34:00 [...] Osteopenia Confirmed Active AF (paroxysmal atrial fibrillation) [id number] score 4 Confirmed Active Abnormal plasma protein test;faint IGM Confirmed Active Thyroid nodules, bilateral Confirmed Active Diagnosis Diagnosis Type Effective Dates Health Status Clinical Service Informant Cellulitis of left hand Discharge Diagnosis 09/11/24 Chronic kidney disease (CKD), stage G3a Discharge Diagnosis 09/11/24 Alzheimer's disease (per neurology) Discharge Diagnosis 09/11/24 Hypertension Discharge Diagnosis 09/11/24 AF (paroxysmal atrial fibrillation) [id number] score 4 Discharge Diagnosis 09/11/24 Vital Signs Most recent to oldest [Reference Range]: 1 Height 162.56 cm (09/11/24 12:08 PM) Weight 60.0 kg (09/11/24 12:08 PM) Oxygen Saturation [94-100 %] 96 % (09/11/24 12:08 PM) Pulse Rate [55-90 bpm] 74 bpm (09/11/24 12:08 PM) Body Mass Index [18.5-24.99 kg/m2] 22.71 kg/m2 (09/11/24 12:08 PM) Blood Pressure [90-138/55-84 mm Hg] 105/ 61mm Hg (09/11/24 12:08 PM) Mode of Delivery (Oxygen) Room air (09/11/24 12:08 PM) Blood pressure sites Arm, left (09/11/24 12:08 PM) Weight Obtained Via Standing scale (09/11/24 12:08 PM) Social History Social History Type Response Smoking Status Never smoker entered on: 01/30/14 Sex Sex Representation Female (finding) Patient Care team information Care Team Personnel Name: Luisa Scott NP Position: S PCO Associate Professional Member Role: PCP Address: [address] [place] [id number] Telecom: Care Team Related Persons Name: MAR GOLDSMITH Name: MAR GOLDSMITH Name: Mar Goldsmith Name: EMILIE GOLDSMITH Name: CARLOS GOLDSMITH Name: CARLOS GOLDSMITH Insurance Providers Guarantor name: RENUKA GOLDSMITH Health Plan Information #: 1 Payer: MEDICARE PART B OUTPT Member Number: [id number] Policy Number: NA Group Number: NA Health Plan Information #: 2 Payer: MEDICARE PART B OUTPT Member Number: [id number] Policy Number: NA Group Number: NA
--- OUTSIDE RECORDS SUMMARY | 2024-09-19 12:52 | XMS_ITS | Continuity of Care Document ---
Author Organization [facility] Address [address] [place] [address]- Support Name Relationship Address Phone JERMAINE, EMILIE [...] JERMAINE, EMILIE Personal Relationship Unknown Unav ailable JEMRAINE, EMILIE Personal Relationship Unknown Unav ailable JERMAINE, EMILIE Personal Relationship Unknown Unav ailable JERMAINE, EMILIE Personal Relationship Unknown Unav ailable JERMAINE, EMILIE Personal Relationship Unknown Unav ailable JERMAINE, EMILIE Personal Relationship Unknown Unav ailable JERMAINE, EMILIE Personal Relationship Unknown Unav ailable EMILIE GOLDSMITH Personal Relationship Unknown Unav ailable EMILIE GOLDSMITH Personal Relationship Unknown Unav ailable Care Team Providers Care Case Management Social Worker Name Role Phone Tyler Luisa CROCKER Primary Care Physician Encounter [facility] Date(s): 08/09/24 - 09/08/24 [facility] Adult [address] [place], [place] [address] Encounter Type: Triage Allergies, Adverse Reactions, Alerts No Known Allergies Immunizations Given and Recorded Vaccine Date Status Refusal Reason RSV vaccine preF3, recombinant 07/19/24 Recorded SARS-CoV-2(COVID-19)mRNA-LNP vac(hte560) 07/12/24 Recorded influenza virus vaccine, inactivated 1 [...] pneumococcal 20-valent conjugate vaccine 7 03/21/23 Given SKMN-HpU-6pOWR 12y+ bivalent booster vax 06/01/22 Recorded MXFK-FlT-3qACQ 12y+ bivalent booster vax 05/28/22 Recorded Influenza Virus Vaccine (oldterm) 05/28/22 Recorde d Influenza Virus Vaccine (oldterm) 8 06/06/20 Recor ded Influenza Virus Vaccine (oldterm) 06/17/19 Recorde d Influenza Virus Vaccine (oldterm) 06/04/08 Given tetanus/diphtheria/pertussis, acel(Tdap) 05/26/22 Given SARS-CoV-2 mRNA (ryxioaq-fjqe-kjilz) vax 9 03/16/22 Given SARS-CoV-2 (COVID-19) mRNA [...] Pneumococcal Vacc (oldterm) 10/26/01 Given 1Result Comment: [id number] Checklist completed 2Result Comment: [[facility]/08/2018] [facility] 3Result Comment: [05/29/2017] [facility] [id number] HD 4Result Comment: [06/06/2016] [facility]- High Dose 5Admin Note: FLU CLINIC 6Admin Note: GIVEN IN CLINIC [facility] 7Result Comment: [id number] 8Result Comment: [facility] 9Result Comment: [facility]# [id number] 10Admin Note: FLU CLINIC 11Admin Note: [facility] VIS [phone] given Medications Daily Hemalatha oral tablet 1 [...] 11:30:00 PM EST, Route to Pharmacy Electronically, [facility] # [facility], 162.56, cm, 07/11/24 11:36:00 EST, Height Start Date: 08/26/24 Status: Ordered Quantity: 30.0 Unit: tablet Repeat number: 1 Eliquis 5 mg oral tablet 1 tablet = 5 mg, By Mouth, 2 times a day, # 56 tablet, 3 Refills, Maintenance, 07/29/24 3:26:00 PM EST, [facility] # [facility], 162.56, cm, 07/11/24 11:36:00 EST, Height Start Date: 07/29/24 Stop Date: 11/18/24 Status: Ordered Quantity: 56.0 Unit: tablet Repeat number: 4 memantine 10 mg oral tablet 1 tablet, By Mouth, 2 times a day, # 60 tablet, 5 Refills, Maintenance, 08/26/24 11:31:00 PM EST, [facility] # [facility], 162.56, cm, 07/11/24 11:36:00 [...] Refills, Maintenance, 08/27/24 10:28:00 AM EST, Tablet, [facility] # [facility], 162.56, cm, 07/11/24 11:36:00 EST, Height Start Date: 08/27/24 Status: Ordered Quantity: 28.0 Unit: tablet Repeat number: 3 sertraline 50 mg oral tablet 1 tablet = 50 mg, By Mouth, Daily, Take in addition to 100mg tab for a total of 150mg/day, # 28 tablet, 2 Refills, Maintenance, 08/27/24 10:28:00 AM EST, Tablet, [facility] # [facility], 162.56, cm, 07/11/24 11:36:00 [...] Osteopenia Confirmed Active AF (paroxysmal atrial fibrillation) [id number] score 4 Confirmed Active Abnormal plasma protein test;faint IGM Confirmed Active Thyroid nodules, bilateral Confirmed Active Social History Social History Type Response Smoking Status Never smoker entered on: 01/30/14 Sex Sex Representation Female (finding) Patient Care team information Care Team Personnel Name: Luisa Scott NP Position: S PCO Associate Professional Member Role: PCP Address: [address] [place] [id number] Telecom: Care Team Related Persons Name: MAR GOLDSMITH Name: MAR GOLDSMITH Name: Mar Goldsmith Name: EMILIE GOLDSMITH Name: CARLOS GOLDSMITH Name: CARLOS GOLDSMITH Insurance Providers Guarantor name: RENUKA GOLDSMITH Health Plan Information #: 1 Payer: MEDICARE PART B OUTPT Member Number: NA Policy Number: NA Group Number: NA
== END 2024-09-19 10:48 | disposition home or self-care (01) ==
LOC: HO.HOSX 10:47
DX: S52.602A Unspecified fracture of lower end of left ulna, initial encounter for closed fracture (principal)
CPT/HCPCS: 25530; 73110; 99212

== ENCOUNTER 2024-09-19 11:09 | Outpatient (AMB) | payer MEDICARE, OTHER, SELFPAY ==
--- NOTE | 2024-09-19 11:13 | A.OFFVIS_ITS ---
Vital Signs 09/19/24 11:14 Height 5 ft 2 in Weight 130 lb BMI 23.8 Intake Visit Reasons: FC - Left Distal Ulna Fracture 09/11/24 Intake Note: Ainsley is an 89 year old right hand dominant female who presents today for a fracture care visit s/p Left wrist fracture. Hx of Dementia Patient reports that she had a trip and fall on 09/11/24 while walking out of the doctors office, causing her to land on her Left arm. Patient reported increasing pain over the few days after DOI, which brought her to [facility] ED on 09/16/24. She was placed in a sugar tong splint for a distal ulna fracture. Splint remove and xrays updated in office. Allergies No Known Allergies [No Known Allergies*] Allergy (Verified 09/19/24 11:17) HPI HPI FC - Left Distal Ulna Fracture 09/11/24: Details: Ainsley is an 89 year old right hand dominant female who presents today for a fracture care visit s/p Left wrist fracture. Hx of Dementia Patient reports that she had a trip and fall on 09/11/24 while walking out of the doctors office, causing her to land on her Left arm. Patient reported increasing pain over the few days after DOI, which brought her to [facility] ED on 09/16/24. She was placed in a sugar tong splint for a distal ulna fracture. Splint remove and xrays updated in office. Today, the patient reports that she is feeling better, but she is still experiencing discomfort left wrist. The patient states light fist splint she was in from the emergency department, as she felt that this reduced her pain significantly. Denies any numbness or tingling in the left hand. No other acute complaints or concerns at this time. [facility] Medical History HTN (hypertension) Afib Alzheimer's dementia Social History Household Members: Caregiver Housing: House Do you presently have visiting nurse or other home services: No Alcohol intake: former Patient Tobacco Use Status: Never used Tobacco Advance Directives Date on File: 08/23/24 service: No Review of Systems Const All systems reviewed & are unremarkable except as noted in HPI and below Physical Exam Vital Signs: BMI result Body Mass Index 23.8 Office Procedures AMB Fracture Care Fracture Billing Code: Fracture Billing Code Casting/Splints 89146-Wndnjcg Splint Application Procedure code (CPT) selection complete Results Reviewed Results Reviewed: X-rays obtained in the office today and independently reviewed by me, Blas Rich PA-C, demonstrate minimally displaced fracture of the distal ulnar shaft of the left wrist with unchanged alignment from previous x-rays in the emergency department. Assessment & Plan Assessment & Plan (1) Fracture of distal end of left ulna: Code(s): S52.602A - Unspecified fracture of lower end of left ulna, initial encounter for closed fracture Category: Medical Plan 1. Distal ulnar shaft fracture, left Date of injury 09/11/2024 Patient is educated about this injury Patient is educated about the typical recovery course At this time, patient was placed into a sugar-tong splint to be worn for another week to ensure stability of the DRUJ in the setting of this fracture Patient was educated on proper splint care and precautions Patient will follow-up in 1 week for repeat x-rays with reassessment, anticipate cast placement that time, sooner with any acute concerns Orders: Orders 2 XR wrist LT min 3V Today M25.532 - Pain in left wrist Coding Level of Care Code Est Pt Level 3 (40953) Diagnoses Fracture of distal end of left ulna S52.602A CPT Codes Fracture Care - Fracture Billing Code: Fracture Billing Code ([id number]) Splint - CPT: 37784-Kdwjhfv Splint Application ([id number])
[2024-09-19 11:14] VITALS: BMI 23.8
== END 2024-09-19 12:11 | disposition home or self-care (01) ==
PROVIDERS: PCP Nurse Practitioner Family
DX: S52.602A Unspecified fracture of lower end of left ulna, initial encounter for closed fracture (principal)
CPT/HCPCS: 25530; 99213

== ENCOUNTER 2024-09-23 11:28 | Outpatient (AMB) | payer MEDICARE, OTHER, SELFPAY ==
[2024-09-23 11:30] VITALS: BMI 23.8
--- NOTE | 2024-09-23 11:30 | MHC.OFFVIS ---
Vital Signs 09/23/24 11:30 Height 5 ft 2 in Weight 130 lb BMI 23.8 Intake Visit Reasons: OV- LT Distal Ulna fx f/u 09/11/24-cast change Intake Note: Ainsley 89 yr old female presents today for her cast change for her left Distal ulnar shaft fracture, Date of injury 09/11/2024. States her cast came off at home. Allergies No Known Allergies [No Known Allergies*] Allergy (Verified 09/23/24 11:31) HPI HPI OV- LT Distal Ulna fx f/u 09/11/24-cast change: Details: Ainsley 89 yr old female presents today for her cast change for her left Distal ulnar shaft fracture, Date of injury 09/11/2024. States her cast came off at home. Patient's caregiver reports that she has been combative all weekend, and removed the splint while she was not there. Patient reports no increasing pain at the fracture site, and reports that her pain has actually improved. No other acute complaints or concerns at this time. [facility] Medical History HTN (hypertension) Afib Alzheimer's dementia Social History Household Members: Caregiver Housing: House Do you presently have visiting nurse or other home services: No Alcohol intake: former Patient Tobacco Use Status: Never used Tobacco Advance Directives Date on File: 08/23/24 service: No Review of Systems Const All systems reviewed & are unremarkable except as noted in HPI and below Physical Exam Vital Signs: BMI result Body Mass Index 23.8 Extrem Other: Patient is alert, oriented, and in no acute distress. Neuro: Normal sensation of the tips of all digits of the left hand at this time Vascular: Cap refill brisk Pain: Minimal tenderness to palpation about the left distal ulna No pain with range of motion of the left hand ROM: Patient is able to make a closed fist and extend all digits of the left hand fully and without difficulty Skin: No lacerations or abrasions. General: No ecchymosis, erythema, or evidence of infection. Psych: Appears grossly normal Affect normal Attitude cooperative Office Procedures AMB Fracture Care Fracture Billing Code: Fracture Billing Code Casting/Splints 00538-Vtki Arm Cast Application Procedure code (CPT) selection complete Results Reviewed Results Reviewed: X-rays obtained in the office today and independently reviewed by me, Blas Rich PA-C, demonstrate minimally displaced fracture of the left ulnar shaft , largely unchanged alignment from previous x-rays. Assessment & Plan Assessment & Plan (1) Fracture of distal end of left ulna: Code(s): S52.602A - Unspecified fracture of lower end of left ulna, initial encounter for closed fracture Category: Medical Plan 1. Left ulnar shaft fracture Date of injury 09/11/2024 Patient is educated about this injury Patient is educated about the typical recovery course At this time, patient was placed into a [place] cast to allow for flexion and extension of the elbow while now allowing pronation and supination of the left wrist in the setting of a distal ulnar shaft fracture Patient will follow-up in 3 weeks with repeat x-rays for reassessment, sooner with any acute concerns Orders: Orders XR forearm LT 2V Today S52.209A - Unspecified fracture of shaft of unspecified ulna, initial encounter for closed fracture, S52.90XA - Unspecified fracture of unspecified forearm, initial encounter for closed fracture Coding Level of Care Code Est Pt Level 3 (15375) Diagnoses Fracture of distal end of left ulna S52.602A CPT Codes Fracture Care - Fracture Billing Code: Fracture Billing Code ([id number]) Casting - CPT: 26282-Vcjv Arm Cast Application ([id number])
--- OUTSIDE RECORDS SUMMARY | 2024-09-23 16:20 | XMS_ITS ---
Author Organization [facility] Address [address] [place] [address] Care Team Providers Care Bootmaker Name Role Phone Tyler Luisa GRIFFITH Primary Care Provider Unavail Nena Jiménez [phone] REASON FOR VISIT same day cx 05/20/24 Encounters Encounter Location Date Provider Diagnosis [address] [address] 05/20/2024 Nena Lora Plan Of Treatment Next Appt Details Provider Name:Nena almonte, 10/18/2024 12:30:00 PM, [address] [place] [address], [phone], Progress Notes * Ainsley DEAN RDOB: 6 (88 yo F)Acc No.[id number]:05/20/2024 Patient:?Ainsley Dean :1935???Age:88 Y???Sex:Female Address:[address] [facility] [place] [address] * true * Date:? Generated for Ha foy/Hiro/eTransmitting on:?09/23/2024 04:20 PM EST
--- OUTSIDE RECORDS SUMMARY | 2024-09-23 16:20 | XMS_ITS ---
Author Organization [facility] Address [address] [place] [address] Care Team Providers Care R D Manager Name Role Phone Tyler Luisa GRIFFITH Primary Care Provider Unavail able Nena Lora Unavailable [phone] Uvaldo Anthony Unavailable [phone] REASON FOR VISIT Pcp- 09/20, At Risk Footcare, Painful Nail(s) aggrevated by shoes and causing difficulty standing/walking, Wart(s) Encounters Encounter Location Date Provider Diagnosis [facility] [address] [place] [address] 05/20/2024 Uvaldo Anthony Pain in right foot M79.671 ; Plantar wart B07.0 ; Pain in left foot M79.672 ; Tinea unguium B35.1 ; Pain in left toe(s) M79.675 ; Pain in right toe(s) M79.674 and 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 immune-boosting meds such as zinc, recomm. follow up with topical chemosurgical agents, Pt defers any other forms of tx (91531), CIRCULATION: Any more invasive procedure to wart [...] as necessary. Patient chooses, no pharmaceutical tx (81675) Keratoma Treatment Parring or Cutting o f Benign Hyperkeratotic Lesion(s) 47351 ( >4 Lesions) - The Benign hyperkeratotic lesions, as described above were pared, and/or cut utilizing a sterile #15 blade, tissue nippers, and/or dremel, Q8 Progress Notes * Ainsley DEAN RDOB: (89 yo F)Acc No.[id number]:05/20/2024 Progress Note Patient:?Ainsley DEAN R Provider:?Uvaldo Anthony DPM :1935???Age:88 Y???Sex:Female D ate:05/20/2024 Address:[address] [place] [address] [place], [id number] Pcp:NACHO Hamlin Subjective: * Chief Complaints: * [...] in right toe(s) - M79.674???7.?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 [...] as necessary. Patient chooses, no pharmaceutical tx (45440).?Keratoma Treatment:?Parring or Cutting of Benign Hyperkeratotic Lesion(s)?77222 ( >4 Lesions) - The Benign hyperkeratotic lesions, as described above were pared, and/or cut utilizing a sterile #15 blade, tissue nippers, and/or dremel, Q8.?Wart Treatment:?Procedure?Verrucae(s) were debrided to pin-point bleeding margins with sterile surgical blade, silver nitrate chemocautery applied, recomm. immune-boosting meds such as zinc, recomm. follow up with topical chemosurgical agents, Pt defers any other forms of tx (43827), CIRCULATION: Any more invasive procedure to wart deferred due to circulation risk.? * Procedure Codes:?61038 Wart Destruction, 1-14, Modifiers: XS , 36259 DEBRIDE NAIL, 6 OR MORE, Modifiers: XS , 62732 TRIM SKIN LESIONS, OVER 4, Modifiers: XS , Q8 * Follow Up:?2 Months * Images: * The named appointment provid er may or may not be the originator of this progress note, and it is not deemed complete until electronically signed by the appointment provider. Sign off status: Pending * Provider:?Uvaldo Anthony DPM Date:? 024 Generated for Ha foy/Hiro/Kaitlinsmitting on:?09/23/2024 04:20 PM EST History and Physical Notes * [...]
--- OUTSIDE RECORDS SUMMARY | 2024-09-23 16:20 | XMS_ITS | Patient Health Record ---
Author Organization [facility] [place] Address [address] [facility] [place] [address] Care Team Providers Care Mold Mechanic Name Role Phone Tyler Luisa GRIFFITH Primary Care Provider Unavail able ChristineBobby almonteen Unavailable [phone] Uvaldo Anthony Unavailable [phone] Allergies No Known Allergies Reason For Referral [...] Problem Status W/U Status Risk Notes Problem [id number] Hallux valgus (acquired), left foot (M20.12) Active confirmed Problem Plantar wart (61173017) Plantar wart (B07.0) Active confirmed Problem 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, bilateral legs (I70.203) Active confirmed Problem 099299727 Hammer toe of le ft foot (M20.42) Active confirmed Problem 97461769 Osteoarthritis o f right ankle and foot (M19.071) Active confirmed Vital Signs Blood pressure diastolic 80 mm Hg 07/12/2024 Height 5 ft 3 in in 07/12/2024 Blood pressure systolic 120 mm Hg 07/12/2024 Weight 139 lbs 07/12/2024 BMI 24.62 kg/m2 07/12/2024 Encounters Encounter Location Date Provider Diagnosis [address] [address] 11/17/2023 Nena Perica Pain in right foot M79.671 ; Plantar wart B07.0 ; Pain in left foot M79.672 ; Tinea unguium B35.1 ; Pain in left toe(s) M79.675 ; Pain in right toe(s) M79.674 and 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, bilateral legs I70.[address] [address] 02/02/2024 Nena Perica Pain in right foot M79.671 ; Plantar wart B07.0 ; Pain in left foot M79.672 ; Tinea unguium B35.1 ; Pain in left toe(s) M79.675 ; Pain in right toe(s) M79.674 and 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, bilateral legs I70.[address] [address] 07/12/2024 Nena Perica Pain in right foot M79.671 ; Plantar wart B07.0 ; Pain in left foot M79.672 ; Tinea unguium B35.1 ; Pain in left toe(s) M79.675 ; Pain in right toe(s) M79.674 and 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, bilateral legs I70.203 [facility] [place] [address] [place] [address] 10/13/2023 Nena Lora [facility] [address] 11/17/2023 Nena Perica [facility] [address] 04/10/2024 [facility] [address] 05/20/2024 Nena Lora Assessments Encounter Date Diagnosis [...] (ICD-10 - M79.674) 11/17/2023 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, bilateral legs (ICD-10 - I70.203) 02/02/2024 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, bilateral legs (ICD-10 - I70.203) 07/12/2024 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, bilateral legs (ICD-10 - I70.203) Plan Of Treatment Pending Test Test Name Order Date *Uric Acid, Serum 11/29/2017 *CBC With Differential/Platelet 11/30/19 18 ESR 11/29/2017 X ray : Foot, right 3V 11/29/2017 86393-TWYRLDB NAIL, 6 OR MORE 02/18/2013 90259-ADVABTO NAIL, 6 OR MORE 05/22/2013 61910-BOESJGB NAIL, 6 OR MORE 09/11/2013 88853-TWJIAQW NAIL, 6 OR MORE 12/25/2013 87341-KNSQWPN NAIL, 6 OR MORE 03/26/2014 12532-JILRANO NAIL, 6 OR MORE 06/23/2014 90738-BFDOUWR NAIL, 6 OR MORE 03/28/2018 20279-VADDBKM NAIL, 6 OR MORE 06/06/2018 94781-GPWIEEN NAIL, 6 OR MORE 08/07/2018 56401-Ssyr Destruction, 1-14 06/06/2018 74079-Tyhl Destruction, 1-14 08/07/2018 20583-Yuim Destruction, 1-14 05/22/2013 38555-Ddxi Destruction, 1-14 02/18/2013 49501-Tlcn Destruction, 1-14 03/28/2018 15271-Stmu Destruction, 1-14 09/11/2013 81155-Obxfsamb Plate 06/23/2014 75550- Debride <25 sq cm 05/22/2013 63314- Debride <25 sq cm 06/23/2014 62468- Debride <25 sq cm 12/25/2013 53631-VXWY SKIN LESIONS, OVER 4 03/28/20 18 59650-GAUI SKIN LESIONS, OVER 4 08/07/20 18 50766-AKUS SKIN LESIONS, OVER 4 06/06/20 18 Next Appt Details Provider Name:Nena almonte, 10/18/2024 12:30:00 PM, [address] [place], [address], Insurance Providers Payer Name Payer Address Payer Phone Subscriber Number Group Number Insured Name Patient Relationship to Insured Coverage Start Date Coverage End Date Medicare National Govt Sv[employer] [address] [place] [address] [id number] Ainsley Dean Self - patient is the insured for Life [address] [place] [phone] [id number] Felipe Dean Spouse - patient is the spouse of the insured Medical (General) History Medical History History ICD Code transfusions mumps high blood pressure chicken pox Surgical History Surgery Date(Month/Year) hysterectomy 1982 Hospitalization History Reason Date(Month/Year) [facility] - feet swelling, blood clot left leg 06/2018
--- OUTSIDE RECORDS SUMMARY | 2024-09-23 16:21 | XMS_ITS ---
Author Organization [facility] [place] Address [address] [facility] [place] [address] Care Team Providers Care Marine Operations Coordinator Name Role Phone Tyler Luisa GRIFFITH Primary Care Provider Unavail able Nena Lora Unavailable [phone] Allergies No Known Allergies REASON FOR VISIT [...] 024 Encounters Encounter Location Date Provider Diagnosis [facility] [address] [address] 07/12/2024 Nena Christinesuzy Pain in right foot M79.671 ; Plantar wart B07.0 ; Pain in left foot M79.672 ; Tinea unguium B35.1 ; Pain in left toe(s) M79.675 ; Pain in right toe(s) M79.674 and Unspecified atherosclerosis of cahto arteries of extremities, bilateral legs I70.203 Assessments [...] (ICD-10 - M79.674) 07/12/2024 Unspecified atherosclerosis of cahto arteries of extremities, bilateral legs (ICD-10 - I70.203) Plan Of Treatment Next Appt Details Follow Up: 3 Months, Reason: Provider Name:Nena Doll Christine suzy, 10/18/2024 12:30:00 PM, [address] [place] [address], [address], Procedure Notes * Category Sub-Category Detail Notes Wart Treatment Procedure Verrucae(s) were debrided to pin-point bleeding margins with sterile surgical blade, silver nitrate chemocautery applied, recomm. immune-boosting meds such as zinc, recomm. follow up with topical chemosurgical agents, Pt defers any other forms of tx (65484), CIRCULATION: Any more invasive procedure to wart [...] as necessary. Patient chooses, no pharmaceutical tx (49397) Keratoma Treatment Parring or Cutting o f Benign Hyperkeratotic Lesion(s) 47556 ( >4 Lesions) - The Benign hyperkeratotic lesions, as described above were pared, and/or cut utilizing a sterile #15 blade, tissue nippers, and/or dremel, Q8 Progress Notes * Ainsley DEAN RDOB: (88 yo F)Acc No.[id number]:07/12/2024 Progress Note Patient:?Ainsley DEAN R Provider:?Nena Lora DPM :1935???Age:88 Y???Sex:Female D ate:07/12/2024 Address:[address] [place] [id number] Pcp:NACHO Hamlin Subjective: * Chief Complaints: * [...] in right toe(s) - M79.674???7.?Unspecified atherosclerosis of cahto arteries of extremities, bilateral legs - I70.203??? [...] as necessary. Patient chooses, no pharmaceutical tx (00038).?Keratoma Treatment:?Parring or Cutting of Benign Hyperkeratotic Lesion(s)?06202 ( >4 Lesions) - The Benign hyperkeratotic lesions, as described above were pared, and/or cut utilizing a sterile #15 blade, tissue nippers, and/or dremel, Q8.?Wart Treatment:?Procedure?Verrucae(s) were debrided to pin-point bleeding margins with sterile surgical blade, silver nitrate chemocautery applied, recomm. immune-boosting meds such as zinc, recomm. follow up with topical chemosurgical agents, Pt defers any other forms of tx (12959), CIRCULATION: Any more invasive procedure to wart deferred due to circulation risk.? * Procedure Codes:?59998 Wart Destruction, 1-14, Modifiers: XS 03730 DEBRIDE NAIL, 6 OR MORE, Modifiers: XS 03118 TRIM SKIN LESIONS, OVER 4, Modifiers: XS , Q8 * Follow Up:?3 Months * Images: * Sign off status: Completed true * Provider:?Nena Lora, MICHAEL Date:? Generated for Ha foy/Hiro/Deon on:?09/23/2024 04:20 PM EST History and Physical [...]
== END 2024-09-23 12:13 | disposition home or self-care (01) ==
DX: S52.602A Unspecified fracture of lower end of left ulna, initial encounter for closed fracture (principal)
CPT/HCPCS: 29065; 99024

== ENCOUNTER 2024-09-23 11:28 | Outpatient (REF) | payer MEDICARE, OTHER, SELFPAY ==
--- NOTE | ~2024-09-23 | XR_ITS ---
EXAMINATION: XR FOREARM 2 VIEWS LEFT HISTORY: S52.90XA - Unspecified fracture of unspecified forearm, initial encounter... COMPARISON: Correlation is made with plain films of the left wrist dated 09/19/2024. FINDINGS: AP and lateral views of the left forearm are submitted. The bones are osteopenic. Again seen is a mildly displaced oblique fracture of the distal ulna. The fracture line remains visible. The joint spaces are preserved. The soft tissues are unremarkable. XR/XR forearm LT 2V IMPRESSION: Mildly displaced oblique fracture of the distal ulna. Electronically signed by: Red Villalobos MD 09/23/2024 12:40 PM [facility]
--- OUTSIDE RECORDS SUMMARY | 2024-09-23 16:32 | XMS_ITS | Data Portability ---
Author Organization [place] [facility] Address [address] [place] [address] Assessment Encounter Date Assessment Date Assessment LastModified [...] pain/tenderness, no redness/warmth, she is on eliquis terminal operator, do not suspect any clotting IT band [...] Total Hysterectomy completed NACHO Olivares [address] [place], [address], [place] [facility] 02/21/2022 14:52:28 Imaging Results None recorded. [...] /min 140 mm[Hg] 78 mm[Hg] Not Available [facility] 14:52:13 Social History Question Answer Notes LastModified by Organizat ion Details LastModified Time Tobacco Smoking Status Never Smoker NACHO Olivares [address] [place], [address], [place] [facility] 02/21/2022 14:52:15 What Is Your Level [...] History Condition Response Coronary Artery Disease N COPD N Depression Y Hypothyroidism N A-fib Y Cancer N Stroke N High Cholesterol Y Rheumatoid Arthritis N Kidney Disease Y Parkinson's Disease N Diabetes N CHF N Dementia Y Asthma N Pulmonary Embolism Y Hypertension Y Osteoporosis N Gynecological HistoryNo gynecological history recorded. 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 NACHO Olivares [address], [place], [address], [place] [facility] 02/25/2022 12:15:07 OBGyn Episode No OBEpisode recorded.
== END 2024-09-23 11:29 | disposition home or self-care (01) ==
LOC: HO.HOSX 11:28
DX: S52.202A Unspecified fracture of shaft of left ulna, initial encounter for closed fracture (principal); S52.92XA Unspecified fracture of left forearm, initial encounter for closed fracture
CPT/HCPCS: 29065; 73090; 99212

== ENCOUNTER → 2024-09-23 11:38 | Outpatient (BNV) | payer MEDICARE, OTHER, SELFPAY | PROVIDERS: Visit Provider Radiology Diagnostic Radiology | DX: S52.90XA Unspecified fracture of unspecified forearm, initial encounter for closed fracture (principal); W01.0XXA Fall on same level from slipping, tripping and stumbling without subsequent striking against object, initial encounter | CPT/HCPCS: 73090 ==

== ENCOUNTER 2024-10-15 10:06 | Outpatient (REF) | payer MEDICARE, OTHER, SELFPAY ==
--- NOTE | ~2024-10-15 | XR_ITS ---
CLINICAL HISTORY: M25.532 - Pain in left wrist 3 view left wrist Comparison: SC/SR - XR WRIST LT MIN 3V - 09/19/24 11:15 EST Findings: There is a mildly displaced oblique fracture of the distal ulna which demonstrates evidence of healing. Joint space narrowing and periarticular osteophyte formation at the radiocarpal, scaphotrapezial, and 1st carpometacarpal joints is present, indicating osteoarthritis. No radiopaque foreign body. IMPRESSION: Healing distal ulnar fracture. This document has been electronically signed by: Maryjane Rodgers MD on 10/16/2024 15:02:32
--- OUTSIDE RECORDS SUMMARY | 2024-10-15 11:01 | XMS_ITS ---
Author Organization [facility] Address [address] [place] [address] Care Team Providers Care Postal Carrier Name Role Phone Luisa Guerra Primary Care Provider Unavail able Nena Lora Unavailable [phone] Hernandez Encounters Encounter Location Date Provider Diagnosis [address] [address] 10/11/2024 Nena Lora Plan Of Treatment Next Appt Details Provider Name:Nena almonte, 10/18/2024 12:30:00 PM, [address] [place] [address], [address], Progress Notes * Ainsley DEAN RDOB: (89 yo F)Acc No.[id number]:10/11/2024 Progress Note Patient:?Ainsley DEAN Provider:?Nena Lora DPM :1935???Age:89 Y???Sex:Female D ate:10/11/2024 Address:[address] [place] [address] [facility] [phone] Pcp:NACHO Hamlin Subjective: * Chief Complaints: * ???1. Dr Hernandez. * Medical History:? Objective: * Vitals:? Assessment: Plan: * Treatment: * Images: * The named appointment provid er may or may not be the originator of this progress note, and it is not deemed complete until electronically signed by the appointment provider. Sign off status: Pending * Provider:?Nena Lora DPM Date:? Generated for Ha foy/Hiro/Deon on:?10/15/2024 11:01 AM EST
--- OUTSIDE RECORDS SUMMARY | 2024-10-15 11:01 | XMS_ITS | Continuity of Care Document ---
Author Organization [facility] Address [address] [place] [address]- Support Name Relationship Address Phone JERMAINE, EMILIE [...] Unknown Unav ailable Care Team Providers Care Assigner Name Role Phone Tyler Luisa CROCKER Primary Care Physician Encounter [facility] Date(s): 09/01/24 - 10/01/24 [facility] [place] [address] [place], [place] [address] Encounter Type: Triage Allergies, Adverse Reactions, Alerts No Known Allergies Immunizations Given and Recorded Vaccine Date Status Refusal Reason RSV vaccine preF3, recombinant 07/19/24 Recorded SARS-CoV-2(COVID-19)mRNA-LNP vac([id number]) 07/12/24 Recorded influenza virus vaccine, inactivated 1 [...] pneumococcal 20-valent conjugate vaccine 7 03/21/23 Given [id number] 12y+ bivalent booster vax 06/01/22 Recorded ANYV-AfS-2oPRW 12y+ bivalent booster vax 05/28/22 Recorded Influenza Virus Vaccine (oldterm) 05/28/22 Recorde d Influenza Virus Vaccine (oldterm) 8 06/06/20 Recor ded Influenza Virus Vaccine (oldterm) 06/17/19 Recorde d Influenza Virus Vaccine (oldterm) 06/04/08 Given tetanus/diphtheria/pertussis, acel(Tdap) 05/26/22 Given SARS-CoV-2 mRNA (rpxwfmr-dlue-zwnuy) vax 9 03/16/22 Given SARS-CoV-2 (COVID-19) mRNA [...] Pneumococcal Vacc (oldterm) 10/26/01 Given 1Result Comment: [id number] Checklist completed 2Result Comment: [facility]05/08/2018] [facility] 3Result Comment: [05/29/2017] [facility] [id number] HD 4Result Comment: [06/06/2016] [facility] Dose 5Admin Note: [facility] 6Admin Note: GIVEN IN CLINIC [facility] 7Result Comment: [id number] 8Result Comment: [facility] 9Result Comment: [facility]# [id number] 10Admin Note: [facility]U CLINIC 11Admin Note: [facility] [place] VIS [phone] given Medications Daily Hemalatha oral tablet 1 tablet, By Mouth, Daily, # 90 tablet, 1 Refills, Maintenance, 09/29/24 2:41:00 PM EST, [facility], 90, 1 tablet By Mouth Daily, 162.56, cm, 09/11/24 12:08:00 EST, Height Start Date: 09/29/24 Status: Ordered Quantity: 90.0 Unit: tablet Repeat number: 2 donepezil 10 mg oral tablet 1, tablet, By Mouth, Daily at bedtime, # 30 tablet, Refills 5, Maintenance, 08/26/24 11:30:00 PM EST, Route to Pharmacy Electronically, [facility] # [facility], 162.56, cm, 07/11/24 11:36:00 EST, Height Start Date: 08/26/24 Status: Ordered Quantity: 30.0 Unit: tablet Repeat number: 1 Eliquis 5 mg oral tablet 1 tablet = 5 mg, By Mouth, 2 times a day, # 56 tablet, 3 Refills, Maintenance, 07/29/24 3:26:00 PM EST, [facility] # [facility], 162.56, cm, 07/11/24 11:36:00 EST, Height Start Date: 07/29/24 Stop Date: 11/18/24 Status: Ordered Quantity: 56.0 Unit: tablet Repeat number: 4 memantine 10 mg oral tablet 1 tablet, By Mouth, 2 times a day, # 60 tablet, 5 Refills, Maintenance, 08/26/24 11:31:00 PM EST, [facility] # [facility], 162.56, cm, 07/11/24 11:36:00 EST, Height Start Date: 08/26/24 Status: Ordered Quantity: 60.0 Unit: tablet Repeat number: 1 Metoprolol Tartrate 25 mg oral tablet 1 tablet, By Mouth, 2 times a day, # 56 tablet, 5 Refills, Maintenance, 06/27/24 2:47:00 PM EDT, [facility] # [facility], 162.56, cm, 01/09/24 9:34:00 EDT, Height Start Date: 06/27/24 Status: Ordered Quantity: 56.0 Unit: tablet Repeat number: 1 omeprazole 20 mg oral enteric coated capsule 1 capsule, By Mouth, Daily, # 28 capsule, 5 Refills, Maintenance, 02/07/24 4:04:00 AM EDT, [facility], 162.56, cm, 01/09/24 [...] Refills, Maintenance, 08/27/24 10:28:00 AM EST, Tablet, [facility] # [facility], 162.56, cm, 07/11/24 11:36:00 EST, Height Start Date: 08/27/24 Status: Ordered Quantity: 28.0 Unit: tablet Repeat number: 3 sertraline 50 mg oral tablet 1 tablet = 50 mg, By Mouth, Daily, Take in addition to 100mg tab for a total of 150mg/day, # 28 tablet, 2 Refills, Maintenance, 08/27/24 10:28:00 AM EST, Tablet, [facility] # [facility], 162.56, cm, 07/11/24 11:36:00 EST, Height Start Date: 08/27/24 Status: Ordered Quantity: 28.0 Unit: tablet Repeat number: 3 simvastatin 20 mg oral tablet 1, tablet, By Mouth, Daily at bedtime, # 28 tablet, Refills 5, Maintenance, 06/27/24 2:46:00 PM EDT, Route to Pharmacy Electronically, [facility], 162.56, cm, 01/09/24 9:34:00 EDT, Height Start Date: 06/27/24 Status: Ordered Quantity: 28.0 Unit: tablet Repeat number: 1 valsartan 80 mg oral tablet 1, tablet, By Mouth, Daily, # 28 tablet, Refills 5, Maintenance, 06/27/24 2:46:00 PM EDT, Route to Pharmacy Electronically, [facility] # [facility], 162.56, cm, 01/09/24 [...] Osteopenia Confirmed Active AF (paroxysmal atrial fibrillation) ISIVJ3Hgpa score 4 Confirmed Active Abnormal plasma protein test;faint IGM Confirmed Active Thyroid nodules, bilateral Confirmed Active Social History Social History Type Response Smoking Status Never smoker entered on: 01/30/14 Sex Sex Representation Female (finding) Patient Care team information Care Team Personnel Name: Luisa Scott NP Position: S PCO Associate Professional Member Role: PCP Address: [address] [place] [address] Telecom: Care Team Related Persons Name: MAR GOLDSMITH Name: MAR GOLDSMITH Name: Mar Goldsmith Name: EMILIE GOLDSMITH Name: CARLOS GOLDSMITH Name: CARLOS GOLDSMITH Insurance Providers Guarantor name: RENUKA GOLDSMITH Health Plan Information #: 1 Payer: MEDICARE PART B OUTPT Member Number: NA Policy Number: NA Group Number: NA
--- OUTSIDE RECORDS SUMMARY | 2024-10-15 11:01 | XMS_ITS | Continuity of Care Document ---
Author Organization [facility] Address [address] [place] [address]- Support Name Relationship Address Phone JERMAINE, EMILIE [...] Unknown Unav ailable Care Team Providers Care Oncology Pharmacist Name Role Phone Tyler Luisa CROCKER Primary Care Physician [phone] Encounter [facility] Date(s[place] 08/30/24 - 09/29/24 [facility] Adult [address] [place], [place] [address] Encounter Type: Triage Allergies, Adverse Reactions, Alerts No Known Allergies Immunizations Given and Recorded Vaccine Date Status Refusal Reason RSV vaccine preF3, recombinant 07/19/24 Recorded SARS-CoV-2(COVID-19)mRNA-LNP vac(lgb922) 07/12/24 Recorded influenza virus vaccine, inactivated 1 [...] pneumococcal 20-valent conjugate vaccine 7 03/21/23 Given NFOT-FuL-3hYYM 12y+ bivalent booster vax 06/01/22 Recorded ZYEZ-HdT-1lGKA 12y+ bivalent booster vax 05/28/22 Recorded Influenza Virus Vaccine (oldterm) 05/28/22 Recorde d Influenza Virus Vaccine (oldterm) 8 06/06/20 Recor ded Influenza Virus Vaccine (oldterm) 06/17/19 Recorde d Influenza Virus Vaccine (oldterm) 06/04/08 Given tetanus/diphtheria/pertussis, acel(Tdap) 05/26/22 Given SARS-CoV-2 mRNA (sjfviir-yfjj-rwlfm) vax 9 03/16/22 Given SARS-CoV-2 (COVID-19) mRNA [...] Pneumococcal Vacc (oldterm) 10/26/01 Given 1Result Comment: [id number] Checklist completed 2Result Comment: [facility]08/2018[facility] 3Result Comment: [05/29/2017] [facility] 16449-924-11 HD 4Result Comment: [06/06/2016] [facility]- [facility] Dose 5Admin Note: [facility] 6Admin Note: GIVEN IN CLINIC [facility] 7Result Comment: [id number] 8Result Comment: [facility] 9Result Comment: [facility]# [id number] 10Admin Note: FLU CLINIC 11Admin Note: [place] [facility] VIS [phone] given Medications Daily Hemalatha oral tablet 1 [...] 11:30:00 PM EST, Route to Pharmacy Electronically, [facility] # [facility], 162.56, cm, 07/11/24 11:36:00 EST, Height Start Date: 08/26/24 Status: Ordered Quantity: 30.0 Unit: tablet Repeat number: 1 Eliquis 5 mg oral tablet 1 tablet = 5 mg, By Mouth, 2 times a day, # 56 tablet, 3 Refills, Maintenance, 07/29/24 3:26:00 PM EST, [facility] # 50, 162.56, cm, 07/11/24 11:36:00 EST, Height Start Date: 07/29/24 Stop Date: 11/18/24 Status: Ordered Quantity: 56.0 Unit: tablet Repeat number: 4 memantine 10 mg oral tablet 1 tablet, By Mouth, 2 times a day, # 60 tablet, 5 Refills, Maintenance, 08/26/24 11:31:00 PM EST, [facility] # 50, 162.56, cm, 07/11/24 11:36:00 EST, Height Start Date: 08/26/24 Status: Ordered Quantity: 60.0 Unit: tablet Repeat number: 1 Metoprolol Tartrate 25 mg oral tablet 1 tablet, By Mouth, 2 times a day, # 56 tablet, 5 Refills, Maintenance, 06/27/24 2:47:00 PM EDT, [facility] # 50, 162.56, cm, 01/09/24 9:34:00 EDT, Height Start Date: 06/27/24 Status: Ordered Quantity: 56.0 Unit: tablet Repeat number: 1 omeprazole 20 mg oral enteric coated capsule 1 capsule, By Mouth, Daily, # 28 capsule, 5 Refills, Maintenance, 02/07/24 4:04:00 AM EDT, [facility] # 50, 162.56, cm, [...] Refills, Maintenance, 08/27/24 10:28:00 AM EST, Tablet, [facility] # 50, 162.56, cm, 07/11/24 11:36:00 EST, Height Start Date: 08/27/24 Status: Ordered Quantity: 28.0 Unit: tablet Repeat number: 3 sertraline 50 mg oral tablet 1 tablet = 50 mg, By Mouth, Daily, Take in addition to 100mg tab for a total of 150mg/day, # 28 tablet, 2 Refills, Maintenance, 08/27/24 10:28:00 AM EST, Tablet, [facility] # 50, 162.56, cm, 07/11/24 11:36:00 EST, Height Start Date: 08/27/24 Status: Ordered Quantity: 28.0 Unit: tablet Repeat number: 3 simvastatin 20 mg oral tablet 1, tablet, By Mouth, Daily at bedtime, # 28 tablet, Refills 5, Maintenance, 06/27/24 2:46:00 PM EDT, Route to Pharmacy Electronically, [facility] # 50, 162.56, cm, 01/09/24 9:34:00 EDT, Height Start Date: 06/27/24 Status: Ordered Quantity: 28.0 Unit: tablet Repeat number: 1 valsartan 80 mg oral tablet 1, tablet, By Mouth, Daily, # 28 tablet, Refills 5, Maintenance, 06/27/24 2:46:00 PM EDT, Route to Pharmacy Electronically, [facility] # 50, 162.56, cm, [...] Osteopenia Confirmed Active AF (paroxysmal atrial fibrillation) [id number] score 4 Confirmed Active Abnormal plasma protein test;faint IGM Confirmed Active Thyroid nodules, bilateral Confirmed Active Social History Social History Type Response Smoking Status Never smoker entered on: 01/30/14 Sex Sex Representation Female (finding) Patient Care team information Care Team Personnel Name: Luisa Scott NP Position: S PCO Associate Professional Member Role: PCP Address: [address] [place] [address] Telecom: Care Team Related Persons Name: MAR GOLDSMITH Name: MAR GOLDSMITH Name: Mar Goldsmith Name: EMILIE GOLDSMITH Name: CARLOS GOLDSMITH Name: CARLOS GOLDSMITH Insurance Providers Guarantor name: RENUKA GOLDSMITH Health Plan Information #: 1 Payer: MEDICARE PART B OUTPT Member Number: NA Policy Number: NA Group Number: NA
--- OUTSIDE RECORDS SUMMARY | 2024-10-15 11:02 | XMS_ITS ---
Author Organization [facility] ju[place] Address [address] [facility] [place] [address] Care Team Providers Care Mammography Technologist Name Role Phone Tyler Luisa GRIFFITH Primary Care Provider Unavail able Nena Lora Unavailable [phone] Allergies No Known Allergies REASON FOR VISIT [...] 024 Encounters Encounter Location Date Provider Diagnosis [facility] [address] [address] 07/12/2024 Nena Christinesuzy Pain in right foot M79.671 ; Plantar wart B07.0 ; Pain in left foot M79.672 ; Tinea unguium B35.1 ; Pain in left toe(s) M79.675 ; Pain in right toe(s) M79.674 and 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 immune-boosting meds such as zinc, recomm. follow up with topical chemosurgical agents, Pt defers any other forms of tx (95695), CIRCULATION: Any more invasive procedure to wart [...] as necessary. Patient chooses, no pharmaceutical tx (46728) Keratoma Treatment Parring or Cutting o f Benign Hyperkeratotic Lesion(s) 38896 ( >4 Lesions) - The Benign hyperkeratotic lesions, as described above were pared, and/or cut utilizing a sterile #15 blade, tissue nippers, and/or dremel, Q8 Progress Notes * Ainsley DEAN RDOB: (88 yo F)Acc No.[id number]:07/12/2024 Progress Note Patient:?Ainsley DEAN R Provider:?Nena Lora DPM :1935???Age:88 Y???Sex:Female D ate:07/12/2024 Address:[address] [place] [id number] Pcp:NACHO Hamlin Subjective: * Chief Complaints: * [...] History:?hysterecto my 1981 * Hospitalization/Major Diagno stic Procedure:?[facility] - feet swelling, blood clot left leg [...] in right toe(s) - M79.674???7.?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 [...] as necessary. Patient chooses, no pharmaceutical tx (22789).?Keratoma Treatment:?Parring or Cutting of Benign Hyperkeratotic Lesion(s)?83379 ( >4 Lesions) - The Benign hyperkeratotic lesions, as described above were pared, and/or cut utilizing a sterile #15 blade, tissue nippers, and/or dremel, Q8.?Wart Treatment:?Procedure?Verrucae(s) were debrided to pin-point bleeding margins with sterile surgical blade, silver nitrate chemocautery applied, recomm. immune-boosting meds such as zinc, recomm. follow up with topical chemosurgical agents, Pt defers any other forms of tx (66294), CIRCULATION: Any more invasive procedure to wart deferred due to circulation risk.? * Procedure Codes:?15056 Wart Destruction, 1-14, Modifiers: XS 83065 DEBRIDE NAIL, 6 OR MORE, Modifiers: XS 18488 TRIM SKIN LESIONS, OVER 4, Modifiers: XS , Q8 * Follow Up:?3 Months * Images: * Sign off status: Completed true * Provider:?Nena Lora, MICHAEL Date:? Generated for Ha foy/Hiro/Soilaitting on:?10/15/2024 11:01 AM EST History and Physical Notes * [...]
--- OUTSIDE RECORDS SUMMARY | 2024-10-15 11:02 | XMS_ITS | Patient Health Record ---
[facility] [place] [place] Address [address] [facility] [place] [address] Care [address] Thru Order Taker Name Role Phone Tyler Luisa GRIFFITH Primary Care Provider Unavail able ChristineBobby almonteen Unavailable [phone] Uvaldo Anthony Unavailable [phone] Allergies No Known Allergies Reason For Referral [...] Problem Status W/U Status Risk Notes Problem [id number] Hallux valgus (acquired), left foot (M20.12) Active confirmed Problem Plantar wart (98861161) Plantar wart (B07.0) Active confirmed Problem Unspecified atherosclerosis of [place] arteries of extremities, bilateral legs (I70.203) Active confirmed Problem 257844664 Hammer toe of le ft foot (M20.42) Active confirmed Problem 05144621 Osteoarthritis o f right ankle and foot (M19.071) Active confirmed Vital Signs Blood pressure diastolic 80 mm Hg 07/12/2024 Height 5 ft 3 in in 07/12/2024 Blood pressure systolic 120 mm Hg 07/12/2024 Weight 139 lbs 07/12/2024 BMI 24.62 kg/m2 07/12/2024 Encounters Encounter Location Date Provider Diagnosis [address] [address] 11/17/2023 Nena Perica Pain in right foot M79.671 ; Plantar wart B07.0 ; Pain in left foot M79.672 ; Tinea unguium B35.1 ; Pain in left toe(s) M79.675 ; Pain in right toe(s) M79.674 and Unspecified atherosclerosis of [place] arteries of extremities, bilateral legs I70.[address] [address] 02/02/2024 Nena Perica Pain in right foot M79.671 ; Plantar wart B07.0 ; Pain in left foot M79.672 ; Tinea unguium B35.1 ; Pain in left toe(s) M79.675 ; Pain in right toe(s) M79.674 and Unspecified atherosclerosis of [place] arteries of extremities, bilateral legs I70.[address] [address] 07/12/2024 Nena Perica Pain in right foot M79.671 ; Plantar wart B07.0 ; Pain in left foot M79.672 ; Tinea unguium B35.1 ; Pain in left toe(s) M79.675 ; Pain in right toe(s) M79.674 and Unspecified atherosclerosis of [place] arteries of extremities, bilateral legs I70.203 [facility] [place] [address] [place] [address] 11/17/2023 Nena Lora [facility] [address] [address] 04/10/2024 [facility] [address] [place] [address] 05/20/2024 Nena Lora Assessments Encounter Date Diagnosis [...] (ICD-10 - M79.674) 11/17/2023 Unspecified atherosclerosis of [place] arteries of extremities, bilateral legs (ICD-10 - I70.203) 02/02/2024 Unspecified atherosclerosis of [place] arteries of extremities, bilateral legs (ICD-10 - I70.203) 07/12/2024 Unspecified atherosclerosis of [place] arteries of extremities, bilateral legs (ICD-10 - I70.203) Plan Of Treatment Pending Test Test Name Order Date *Uric Acid, Serum 11/29/2017 *CBC With Differential/Platelet 11/30/19 18 ESR 11/29/2017 X ray : Foot, right 3V 11/29/2017 15279-WFLZOZD NAIL, 6 OR MORE 02/18/2013 25829-JLXDCPV NAIL, 6 OR MORE 05/22/2013 47604-PELCYDL NAIL, 6 OR MORE 09/11/2013 07231-FHONABF NAIL, 6 OR MORE 12/25/2013 97360-OFQFDYX NAIL, 6 OR MORE 03/26/2014 83284-BHNNVVP NAIL, 6 OR MORE 06/23/2014 29175-WACGFRA NAIL, 6 OR MORE 03/28/2018 44191-MQZVFRQ NAIL, 6 OR MORE 06/06/2018 74261-VAHUNMS NAIL, 6 OR MORE 08/07/2018 10402-Qjer Destruction, 1-14 06/06/2018 12128-Lrwh Destruction, 1-14 08/07/2018 05539-Zrxm Destruction, 1-14 05/22/2013 81118-Idro Destruction, 1-14 02/18/2013 41544-Brwo Destruction, 1-14 03/28/2018 29984-Yelg Destruction, 1-14 09/11/2013 08930-Hyqiqeqk Plate 06/23/2014 06589- Debride <25 sq cm 05/22/2013 99337- Debride <25 sq cm 06/23/2014 96777- Debride <25 sq cm 12/25/2013 77309-PDKP SKIN LESIONS, OVER 4 03/28/20 18 45342-FLDY SKIN LESIONS, OVER 4 08/07/20 18 46402-VNIK SKIN LESIONS, OVER 4 06/06/20 18 Next Appt Details Provider Name:Nena almonte, 10/18/2024 12:30:00 PM, [address] [place], [address], Insurance Providers Payer Name Payer Address Payer Phone Subscriber Number Group Number Insured Name Patient Relationship to Insured Coverage Start Date Coverage End Date Medicare National Govt [employer] [address] [place] [address] [id number] Ainsley Dean Self - patient is the insured [facility] [employer] [address] [place] [address] [id number] Felipe Dean Spouse - patient is the spouse of the insured Medical (General) History Medical History History ICD Code transfusions mumps high blood pressure chicken pox Surgical History Surgery Date(Month/Year) hysterectomy 1982 Hospitalization History Reason Date(Month/Year) [facility] - feet swelling, blood clot left leg 06/2018
--- OUTSIDE RECORDS SUMMARY | 2024-10-15 11:02 | XMS_ITS ---
Author Organization [facility] Address [address] [place] [address] Care Team Providers Care Strategy Director Name Role Phone Tyler Luisa GRIFFITH Primary Care Provider Unavail able Nena Lora Unavailable [phone] Uvaldo Anthony Unavailable [phone] REASON FOR VISIT Pcp- 09/20, At Risk Footcare, Painful Nail(s) aggrevated by shoes and causing difficulty standing/walking, Wart(s) Encounters Encounter Location Date Provider Diagnosis [facility] [address] [place] [address] 05/20/2024 Uvaldo Anthony Pain in right foot M79.671 ; Plantar wart B07.0 ; Pain in left foot M79.672 ; Tinea unguium B35.1 ; Pain in left toe(s) M79.675 ; Pain in right toe(s) M79.674 and Unspecified atherosclerosis of [place] arteries of extremities, bilateral legs I70.203 Assessments [...] (ICD-10 - M79.674) 05/20/2024 Unspecified atherosclerosis of [place] arteries of extremities, bilateral legs (ICD-10 - I70.203) Plan Of Treatment Next Appt Details Follow Up: 2 Months, Reason: Provider Name:Nena almonte, 10/18/2024 12:30:00 PM, [address] [place] [address], [phone], Procedure Notes * Category Sub-Category Detail Notes Wart Treatment Procedure Verrucae(s) were debrided to pin-point bleeding margins with sterile surgical blade, silver nitrate chemocautery applied, recomm. immune-boosting meds such as zinc, recomm. follow up with topical chemosurgical agents, Pt defers any other forms of tx (99678), CIRCULATION: Any more invasive procedure to wart [...] as necessary. Patient chooses, no pharmaceutical tx (23662) Keratoma Treatment Parring or Cutting o f Benign Hyperkeratotic Lesion(s) 50326 ( >4 Lesions) - The Benign hyperkeratotic lesions, as described above were pared, and/or cut utilizing a sterile #15 blade, tissue nippers, and/or dremel, Q8 Progress Notes * Ainsley DEAN RDOB: (89 yo F)Acc No.[id number]:05/20/2024 Progress Note Patient:?Ainsley DEAN R Provider:?Uvaldo Anthony DPM :1935???Age:88 Y???Sex:Female D ate:05/20/2024 Address:[address] [place] [address] [place], [id number] Pcp:NACHO Hamlin Subjective: * Chief Complaints: * [...] in right toe(s) - M79.674???7.?Unspecified atherosclerosis of [place] arteries of extremities, bilateral legs - I70.203??? [...] as necessary. Patient chooses, no pharmaceutical tx (82973).?Keratoma Treatment:?Parring or Cutting of Benign Hyperkeratotic Lesion(s)?15256 ( >4 Lesions) - The Benign hyperkeratotic lesions, as described above were pared, and/or cut utilizing a sterile #15 blade, tissue nippers, and/or dremel, Q8.?Wart Treatment:?Procedure?Verrucae(s) were debrided to pin-point bleeding margins with sterile surgical blade, silver nitrate chemocautery applied, recomm. immune-boosting meds such as zinc, recomm. follow up with topical chemosurgical agents, Pt defers any other forms of tx (51961), CIRCULATION: Any more invasive procedure to wart deferred due to circulation risk.? * Procedure Codes:?08410 Wart Destruction, 1-14, Modifiers: XS , 52113 DEBRIDE NAIL, 6 OR MORE, Modifiers: XS , 71785 TRIM SKIN LESIONS, OVER 4, Modifiers: XS , Q8 * Follow Up:?2 Months * Images: * The named appointment provid er may or may not be the originator of this progress note, and it is not deemed complete until electronically signed by the appointment provider. Sign off status: Pending * Provider:?Uvaldo Anthony DPM Date:? 024 Generated for Ha foy/Hiro/Kaitlinsmitting on:?10/15/2024 11:01 AM EST History and Physical [...]
--- OUTSIDE RECORDS SUMMARY | 2024-10-15 11:02 | XMS_ITS | Continuity of Care Document ---
Author Organization [facility] Address [address] [place] [address]- Support Name Relationship Address Phone JERMAINE, EMILIE [...] JERMAINE, EMILIE Personal Relationship Unknown Unav ailable JERMIANE, EMILIE Personal Relationship Unknown Unav ailable JERMAINE, EMILIE Personal Relationship Unknown Unav ailable EMILIE DEAN Personal Relationship Unknown Unav ailable EMILIE DEAN Personal Relationship Unknown Unav ailable Care Team Providers Care Charter Bus Driver Name Role Phone Tyler Luisa CROCKER Primary Care Physician [phone] [place] [facility] Date(s): 09/11/24 - 10/11/24 [facility] [address] [place], [place] [address] Attending Physician: Admtr, [id number] Encounter Type: Triage Allergies, Adverse Reactions, Alerts No Known Allergies Immunizations Given and Recorded Vaccine Date Status Refusal Reason RSV vaccine preF3, recombinant 07/19/24 Recorded SARS-CoV-2(COVID-19)mRNA-LNP vac(hyf253) 07/12/24 Recorded influenza virus vaccine, inactivated 1 [...] pneumococcal 20-valent conjugate vaccine 7 03/21/23 Given REUJ-MgJ-0dTOU 12y+ bivalent booster vax 06/01/22 Recorded FKEO-QfS-4cUAB 12y+ bivalent booster vax 05/28/22 Recorded Influenza Virus Vaccine (oldterm) 05/28/22 Recorde d Influenza Virus Vaccine (oldterm) 8 06/06/20 Recor ded Influenza Virus Vaccine (oldterm) 06/17/19 Recorde d Influenza Virus Vaccine (oldterm) 06/04/08 Given tetanus/diphtheria/pertussis, acel(Tdap) 05/26/22 Given SARS-CoV-2 mRNA (ukttpyh-vruz-wqqbc) vax 9 03/16/22 Given SARS-CoV-2 (COVID-19) mRNA [...] Pneumococcal Vacc (oldterm) 10/26/01 Given 1Result Comment: [id number] Checklist completed 2Result Comment: [05/08/2018] [facility] 3Result Comment: [05/29/2017] [facility] [id number] HD 4Result Comment: [06/06/2016] [facility]- High Dose 5Admin Note: FLU CLINIC 6Admin Note: GIVEN IN [facility] 7Result Comment: [id number] 8Result Comment: [facility] 9Result Comment: [facility]# [id number] 10Admin Note: FLU CLINIC 11Admin Note: [employer] [facility] VIS 7774-5815 given Medications Daily Hemalatha oral tablet 1 [...] 11:30:00 PM EST, Route to Pharmacy Electronically, [facility] # [facility], 162.56, cm, 07/11/24 11:36:00 EST, Height Start Date: 08/26/24 Status: Ordered Quantity: 30.0 Unit: tablet Repeat number: 1 Eliquis 5 mg oral tablet 1 tablet = 5 mg, By Mouth, 2 times a day, # 56 tablet, 3 Refills, Maintenance, 07/29/24 3:26:00 PM EST, [facility] # 50, 162.56, cm, 07/11/24 11:36:00 EST, Height Start Date: 07/29/24 Stop Date: 11/18/24 Status: Ordered Quantity: 56.0 Unit: tablet Repeat number: 4 memantine 10 mg oral tablet 1 tablet, By Mouth, 2 times a day, # 60 tablet, 5 Refills, Maintenance, 08/26/24 11:31:00 PM EST, [facility] # 50, 162.56, cm, 07/11/24 11:36:00 EST, Height Start Date: 08/26/24 Status: Ordered Quantity: 60.0 Unit: tablet Repeat number: 1 Metoprolol Tartrate 25 mg oral tablet 1 tablet, By Mouth, 2 times a day, # 56 tablet, 5 Refills, Maintenance, 06/27/24 2:47:00 PM EDT, [facility] # 50, 162.56, cm, 01/09/24 9:34:00 EDT, Height Start Date: 06/27/24 Status: Ordered Quantity: 56.0 Unit: tablet Repeat number: 1 omeprazole 20 mg oral enteric coated capsule 1 capsule, By Mouth, Daily, # 28 capsule, 5 Refills, Maintenance, 02/07/24 4:04:00 AM EDT, [facility] # 50, 162.56, cm, 01/09/24 [...] Refills, Maintenance, 08/27/24 10:28:00 AM EST, Tablet, [facility] # 50, 162.56, cm, 07/11/24 11:36:00 EST, Height Start Date: 08/27/24 Status: Ordered Quantity: 28.0 Unit: tablet Repeat number: 3 sertraline 50 mg oral tablet 1 tablet = 50 mg, By Mouth, Daily, Take in addition to 100mg tab for a total of 150mg/day, # 28 tablet, 2 Refills, Maintenance, 08/27/24 10:28:00 AM EST, Tablet, [facility] # 50, 162.56, cm, 07/11/24 11:36:00 EST, Height Start Date: 08/27/24 Status: Ordered Quantity: 28.0 Unit: tablet Repeat number: 3 simvastatin 20 mg oral tablet 1, tablet, By Mouth, Daily at bedtime, # 28 tablet, Refills 5, Maintenance, 06/27/24 2:46:00 PM EDT, Route to Pharmacy Electronically, [facility] # 50, 162.56, cm, 01/09/24 9:34:00 EDT, Height Start Date: 06/27/24 Status: Ordered Quantity: 28.0 Unit: tablet Repeat number: 1 valsartan 80 mg oral tablet 1, tablet, By Mouth, Daily, # 28 tablet, Refills 5, Maintenance, 06/27/24 2:46:00 PM EDT, Route to Pharmacy Electronically, [facility] # 50, 162.56, cm, 01/09/24 [...] Osteopenia Confirmed Active AF (paroxysmal atrial fibrillation) OEENN9Yrpt score 4 Confirmed Active Abnormal plasma protein test;faint IGM Confirmed Active Thyroid nodules, bilateral Confirmed Active Social History Social History Type Response Smoking Status Never smoker entered on: 01/30/14 Sex Sex Representation Female (finding) EKG study * Event Display: EKG Authored Date: Laboratory * Edie Joseph: PERFORM Event Display: Laboratory Results Scanned Authored Date: Cardiology * Event Display: Cardiology Office Note, Non- Authored Date: * Event Display: Cardiology Office Note, Non- Authored Date: Radiology * Event Display: Ultrasound Lower Extremity, Non- Authored Date: * Event Display: Radiology Result Scanned Authored Date: * Event Display: Radiology Result Scanned Authored Date: * Event Display: Radiology Result Scanned Authored Date: MG Breast Views * Event Display: MM Mammogram, Non- BH Authored Date: * Event Display: MM Mammogram, Non- BH Authored Date: * Event Display: MM Mammogram Authored Date: * Event Display: MM Mammogram Authored Date: Patient Care team information Care Team Personnel Name: Luisa Scott NP Position: S PCO Associate Professional Member Role: PCP Address: [address] [place] [address] [place] Telecom: Care Team Related Persons Name: MAR DEAN Name: MAR DEAN Name: Mar Dean Name: EMILIE DEAN Name: CARLOS DEAN Name: CARLOS DEAN Insurance Providers Guarantor name: RENUKA JERMAINE Health Plan Information #: 1 Payer: MEDICARE PART B OUTPT Member Number: NA Policy Number: NA Group Number: NA
== END 2024-10-15 10:07 | disposition home or self-care (01) ==
LOC: HO.HOSX 10:06
PROVIDERS: Visit Provider Orthopaedic Surgery
DX: M25.532 Pain in left wrist (principal); S52.202A Unspecified fracture of shaft of left ulna, initial encounter for closed fracture; G30.9 Alzheimer's disease, unspecified; F02.80 Dementia in other diseases classified elsewhere, unspecified severity, without behavioral disturbance, psychotic disturbance, mood disturbance, and anxiety
CPT/HCPCS: 73110; 99212

== ENCOUNTER 2024-10-15 13:41 | Outpatient (AMB) | payer MEDICARE, OTHER, SELFPAY ==
--- NOTE | 2024-10-15 13:52 | A.OFFVIS_ITS ---
Vital Signs 10/15/24 14:30 Height 5 ft 2 in Weight 130 lb BMI 23.8 Intake Visit Reasons: OV- LT Distal Ulna fx f/u 09/11/24-cast offw/xray Intake Note: Ainsley is an 89 year old right hand dominant female who presents today for a follow up visit s/p left wrist fracture, DOI 09/11/24. At the last visit, patient was placed into a Fowler cast. Today cast was removed. Patient denies pain, numbness, tingling, finger locking. She continues to take Tylenol for pain with relief. Allergies No Known Allergies [No Known Allergies*] Allergy (Verified 10/15/24 14:30) HPI HPI OV- LT Distal Ulna fx f/u 09/11/24-cast offw/xray: Details: Ainsley is an 89 year old right hand dominant woman who presents for a left ulnar shaft fracture, DOI: 09/11/24. This has been managed non-operatively. She is seen today with her PARTY HOST/HOSTESS She denies any numbness or tingling. [facility] Medical History (Updated 10/15/24 @ 14:31 by Aleksander Mujica) HTN (hypertension) Afib Alzheimer's dementia Social History Household Members: Caregiver Housing: House Do you presently have visiting nurse or other home services: No Alcohol intake: former Patient Tobacco Use Status: Never used Tobacco Advance Directives Date on File: 08/23/24 service: No Review of Systems Const All systems reviewed & are unremarkable except as noted in HPI and below Physical Exam Vital Signs: BMI result Body Mass Index 23.8 Const General: cooperative, healthy appearing and no acute distress Orientation/consciousness: patient oriented x3 HEENT Head: Yes normocephalic and Yes atraumatic Eyes EOM: EOMs intact bilaterally Resp Effort & Inspection: normal respiratory effort and able to speak in complete sentences Cardio Jugular venous distension: no JVD Skin General skin exam: turgor normal Rashes: no rashes Neuro General: patient oriented x3 Extrem Other: Evaluation of Left Upper Extremity: The patient is alert, oriented, and in no acute distress Neuro: Median, Ulnar, Radial nerves motor and sensory intact Vascular: Cap refill brisk ROM: She can make a fist and extend all her digits Skin: No lacerations or abrasions. General: No Ecchymosis. No Erythema or evidence of infection. Her fracture was nontender to palpation. Considering she had been in a Fowler cast, she was actually moving her hand about and through prono-supination fairly easily and without pain. Radiographs: 3 views of the left wrist were taken and viewed by me today in [facility]. They show a minimally displaced ulnar shaft fracture with satisfactory fracture alignment and some evidence of interval bony healing. Psych Appearance: grossly normal Affect: normal affect Attitude: cooperative Assessment & Plan Assessment & Plan (1) Fracture of shaft of left ulna: Code(s): S52.A - Unspecified fracture of shaft of left ulna, initial encounter for closed fracture Category: Medical (2) Alzheimer's dementia: Code(s): G30.9 - Alzheimer's disease, unspecified; F02.80 - Dementia in other diseases classified elsewhere, unspecified severity, without behavioral disturbance, psychotic disturbance, mood disturbance, and anxiety Category: Medical Plan Assessment & Plan: 1. Left ulnar shaft fracture, From a fall, DOI: 09/11/24 I educated her about this condition I discussed operative and non-operative treatment options We will continue to manage this non-operatively She was fitted for a velcro wrist splint, to be worn like a cast except for showering & sleeping, for the next 2 weeks. After 2 weeks she will remove this when at home but continue to wear this when out of the house for the following 2 weeks. I discussed activity modifications She will perform gentle wrist ROM exercises at home She will follow up in 4 weeks with Blas for [id number] check and to see how she is doing. Radiographs are only necessary she has had another fall or has pain. Scribed for Preeti Muñoz MD by Aleksander Mujica, medical artist, on 10/15/24 at 2:35 PM, EST. Orders: Orders XR wrist LT min 3V Today M25.532 - Pain in left wrist Coding Level of Care Code Global (58834) Diagnoses Fracture of shaft of left ulna S5.A Alzheimer's dementia G30.9; F02.80
[2024-10-15 14:30] VITALS: BMI 23.8
== END 2024-10-15 15:41 | disposition home or self-care (01) ==
PROVIDERS: Visit Provider Orthopaedic Surgery
DX: S52.202A Unspecified fracture of shaft of left ulna, initial encounter for closed fracture (principal); G30.9 Alzheimer's disease, unspecified; F02.80 Dementia in other diseases classified elsewhere, unspecified severity, without behavioral disturbance, psychotic disturbance, mood disturbance, and anxiety
CPT/HCPCS: 99024

== ENCOUNTER → 2024-10-15 14:00 | Outpatient (BNV) | payer MEDICARE, OTHER, SELFPAY | PROVIDERS: Visit Provider Radiology Diagnostic Radiology | DX: M25.532 Pain in left wrist (principal); S52.602D Unspecified fracture of lower end of left ulna, subsequent encounter for closed fracture with routine healing | CPT/HCPCS: 73110 ==

== ENCOUNTER 2024-11-12 13:26 | Outpatient (REF) | payer MEDICARE, OTHER, SELFPAY | END 2024-11-12 13:27 | disposition home or self-care (01) | LOC: HO.HOSX 13:26 | DX: Z13.89 Encounter for screening for other disorder (principal) ==

== ENCOUNTER 2025-07-27 13:30 | Emergency (ER) | payer MEDICARE, OTHER, SELFPAY ==
--- OUTSIDE RECORDS SUMMARY | 2024-04-12 05:00 | XMS_ITS ---
Author Organization [facility] Address [address] [place] [address] Care Team Providers Care Rn Occupational Name Role Phone Luisa Scott Primary Care Provider Nena Ferguson [phone] Encounters Encounter Location Date Provider Diagnosis [address] [address] 04/12/2024 Nena Lora Plan Of Treatment Next Appt Details Provider Name:Nena almonte, 08/26/2025 11:30:00 AM, [address] [place], [address], Progress Notes * Ainsley DEAN RDOB: [birth year] (89 yo F)Acc No.[id number]:04/12/2024 Progress Note Patient: Ainsley SILVERIO Provider: Ezequiel Lora DPM :1935 A ge:88 Y S ex:Female Date:04/12/2024 Address:[address] [place] [address] [id number] Pcp:Luisa Scott Subjective: * Chief Complaints: * * Medical History: Objective: * Vitals: Assessment: Plan: * Treatment: * Images: * The named appointment provid er may or may not be the originator of this progress note, and it is not deemed complete until electronically signed by the appointment provider. Sign off status: Pending * Provider: Ezequiel Lora DPM Date: 0 04/12/2024 Generated for aH foy/Hiro/Deon on: 1 09/26/2024 02:23 PM EST
--- OUTSIDE RECORDS SUMMARY | 2024-04-22 07:45 | XMS_ITS ---
Author Organization [facility] Address [address] [place] [address] Care Team Providers Care Adult Manager Name Role Phone Tyler Luisa Primary Care Provider Nena Ferguson Unavailable [phone] Uvaldo Yung Unavailable [phone] REASON FOR VISIT Pcp- 09/20, At Risk Footcare, Painful Nail(s) aggrevated by shoes and causing difficulty standing/walking, Wart(s) Encounters Encounter Location Date Provider Diagnosis [facility] [address] [place] [address] 04/22/2024 Uvaldo Yung Pain in right foot M79.671 ; Plantar wart B07.0 ; Pain in left foot M79.672 ; Tinea unguium B35.1 ; Pain in left toe(s) M79.675 ; Pain in right toe(s) M79.674 and Unspecified atherosclerosis of [place] arteries of extremities, bilateral legs I70.203 Assessments Encounter Date Diagnosis (ICD Code) Assessment Notes Treatment Notes Treatment Clinical Notes Section Notes 04/22/2024 Pain in right foot (ICD-10 - M79.671) 04/22/2024 Plantar wart (ICD-10 - B07.0) 04/22/2024 Pain in left foot (ICD-10 - M79.672) 04/22/2024 Tinea unguium (ICD-10 - B35.1) 04/22/2024 Pain in left toe(s) (ICD-10 - M79.675) 04/22/2024 Pain in right toe(s) (ICD-10 - M79.674) 04/22/2024 Unspecified atherosclerosis of [place] arteries of extremities, bilateral legs (ICD-10 - I70.203) Plan Of Treatment Next Appt Details Follow Up: 2 Months, Reason: Provider Name:Nena Almonte Christine almonte, 08/26/2025 11:30:00 AM, [address] [place] [address], [phone], Procedure Notes * Category Sub-Category Detail Notes Wart Treatment Procedure Verrucae(s) were debrided to pin-point bleeding margins with sterile surgical blade, silver nitrate chemocautery applied, recomm. immune-boosting meds such as zinc, recomm. follow up with topical chemosurgical agents, Pt defers any other forms of tx (99168), CIRCULATION: Any more invasive procedure to wart deferred due to circulation risk Debride Nail 6-10 Nail debridement Nail debridem ent performed extensively to reduce/remove overall nail length and girth, subungual debris, and necrotic tissue, by manual and electrical means with use of a nail nipper and/or dremel, to more viable healthy nail plate or bed tissue 6-10. Silver nitrate used for any petechial bleeding as necessary. Patient chooses, no pharmaceutical tx (89084) Keratoma Treatment Parring or Cutting o f Benign Hyperkeratotic Lesion(s) 55704 ( >4 Lesions) - The Benign hyperkeratotic lesions, as described above were pared, and/or cut utilizing a sterile #15 blade, tissue nippers, and/or dremel, Q8 Progress Notes * Ainsley DEAN RDOB: 6 (89 yo F)Acc No.[id number]:04/22/2024 Progress Note Patient: Kelsey MCGILL Ainsley R Provider: Jose Anthony DPM :1935 A ge:88 Y S ex:Female Date:04/22/2024 Address:[address] [place] [id number] Pcp:Luisa Scott Subjective: * Chief Complaints: * 1 . Pcp- 09/20. 2. At Risk Footcare. 3. Painful Nail(s) aggrevated by shoes and causing difficulty standing/walking. 4. Wart(s). * HPI: A t Risk footcare: Pt States Last PCP Visit: D ate 0 09/20/2023 S kin problems: Pt States PCP Visit: D ATE 0 09/20/2023 * ROS: G eneral/Constitutional: Nausea d enies. V omiting d enies. H mary ann Thirst d enies. L oss appetite d enies. C hills d enies. F atigue d enies.?Fever d enies. N ight Sweats d enies. U nexplained weight loss d enies. U nexplained weight gain d enies. H EENTM: Dentures d enies. D izziness d enies. G lasses/contacts d enies. R etinopathy d enies. B lurred/double vision d enies. T MJ?denies. D ischarge/drainage d enies. I mplants d enies. S ore throat d enies. D ental implants d enies. H jamie of hearing d enies. D ifficulty chewing/swallowing/speaking d enies. N ose bleeds d enies. S ore mouth d enies. ? R espiratory: On Oxygen d enies. P neumonia/pleurisy d enies.?Bronchitis d enies. E mphysema d enies. C oughing d enies. C ough blood?denies. S hortness of breath d enies. W heezing d enies. C ardiovascular: Pacemaker d enies. M PROPERTY CLAIM REP d enies. W PW d enies. C HF d enies. H eart attack d enies. S eptal defect d enies. R apid beat d enies. C hest pain d enies. A trial Fib. d enies. M urmur/Palpitations d enies. G astrointestinal: Hemorrhoids d enies. S tomach/Abdominal pain d enies. D ark blood stool d enies. I rritable bowel d enies. C onstipation d enies. D iarrhea d enies. H ematology: Swelling d enies. C lots d enies. V aricose Veins d enies. B ruising d enies. B leeding problem d enies. G enitourinary: Blood urine d enies. F requent/Painfu/urination/bladder control d enies. K idney stones d enies. I nfection (UTI) d enies. N ephropathy d enies. s ex trans dis (STD) d enies. P rostate d enies. M usculoskeletal: Hammertoes d enies. B unions d enies. B ack Pain d enies. M uscle Cramps/ Resting d enies. M uscle cramps / walking d enies.?Generalized aches and pains d enies. W eakness d enies. I nteg.: Brady d enies. S cars d enies. C orns/calluses?admits. I ngrown nails d enies. P ainful nails d enies. O pen Sores d enies. R ashes d enies. N eurologic: Difficulty sleeping d enies. B rain disorder d enies. N umbness d enies. B alance trouble d enies. C onfusion d enies. F ainting/blackouts d enies. T ingling d enies. T remors d enies. * Medical History: Objective: * Vitals: * Examination: V ascular: DP PULSES (B): 0 /4, B/L. PT PULSES (B): 0 /4, B/L. CAPILLARY FILL TIME: d elayed, all digits, B/L. TROPHIC CONDITION-TEXTURE/ELASTICITY/TURGOR/HAIR GROWTH (B):?decreased, B/L. TEMPERTURE GRADIENT (C): d ecreased, cool to cool, proximal to distal, B/L. PIGMENTATION: p tang, B/L. EDEMA (C): 1 /4, B/L. N ails: NAILS are: E longated, overgrown, dystrophic, lytic, greater than 3mm thick, discolored and friable with crumbly malodorous subungual debris, with pain on palpation , 1-5 B/L. D ermatologic: SKIN FINDINGS: S kin exam reveals Keratotic lesion(s) located at , TA, T1, T5, T8, SUB MTH (s), 1, B/L . VERRUCA: r eveals Multiple ( 3), multi-loculated , mosaic, round, raised, flat-topped, petechial bleeding papulae(s), with cauliflower appearance and interrruption of skin lines, with pain to lateral compression, and size estimated at 3mm diameter,plantar Forefoot,B/L plantar Heel RIGHT. N eurological: TINEL'S COMPRESSION: Negative tarsal tunnel, kane pedis, and medial calcaneal nerves. Assessment: * Assessment: 1. P ain in right foot - M79.671 2 . P lantar wart - B07.0 (Primary) ? 3 . P ain in left foot - M79.672 4 . T inea unguium - B35.1 ? 5 . P ain in left toe(s) - M79.675 6 . P ain in right toe(s) - M79.674 7 . U nspecified atherosclerosis of [place] arteries of extremities, bilateral legs - I70.203 Plan: * Treatment: * Procedures: D ebride Nail 6-10: Nail debridement N ail debridement performed extensively to reduce/remove overall nail length and girth, subungual debris, and necrotic tissue, by manual and electrical means with use of a nail nipper and/or dremel, to more viable healthy nail plate or bed tissue 6-10. Silver nitrate used for any petechial bleeding as necessary. Patient chooses, no pharmaceutical tx (02730). K eratoma Treatment: Parring or Cutting of Benign Hyperkeratotic Lesion(s) 1 1057 ( >4 Lesions) - The Benign hyperkeratotic lesions, as described above were pared, and/or cut utilizing a sterile #15 blade, tissue nippers, and/or dremel, Q8. W art Treatment: Procedure V errucae(s) were debrided to pin-point bleeding margins with sterile surgical blade, silver nitrate chemocautery applied, recomm. immune-boosting meds such as zinc, recomm. follow up with topical chemosurgical agents, Pt defers any other forms of tx (96009), CIRCULATION: Any more invasive procedure to wart deferred due to circulation risk. ? * Procedure Codes: 1 7110 Wart Destruction, 1-14, Modifiers: XS , 18586 DEBRIDE NAIL, 6 OR MORE, Modifiers: XS , 11081 TRIM SKIN LESIONS, OVER 4, Modifiers: XS , Q8 * Follow Up: 2 Months * Images: * The named appointment provid er may or may not be the originator of this progress note, and it is not deemed complete until electronically signed by the appointment provider. Sign off status: Pending * Provider: Jose Anthony DPM Date: 0 04/22/2024 Generated for Ha foy/Hiro/Deon on: 09/26/2024 02:22 PM EST History and Physical Notes * HPI (History of Present Illness) Category Sub-Category Detail Notes Category Not es Skin problems Pt States PCP Visit: DATE: 09/20/2023 At Risk footcare Pt States Last PCP Visit: Date: Examination Category Sub-Category Detail Notes Category Not es Neurological TINEL'S COMPRESSION: Negative ta rsal tunnel, kane pedis, and medial calcaneal nerves Dermatologic SKIN FINDINGS: Skin exam reveal s Keratotic lesion(s) located at , TA, T1, T5, T8, SUB MTH (s), 1, B/L VERRUCA: reveals Multiple ( 3 ), multi-loculated , mosaic, round, raised, flat- topped, petechial bleeding papulae(s), with cauliflower appearance and interrruption of skin lines, with pain to lateral compression, and size estimated at 3mm diameter,plantar Forefoot,B/L plantar Heel RIGHT Vascular DP PULSES (B): 0/4, B/L PT PULSES (B): 0/4, B/L CAPILLARY FILL TIME: delayed, all digits , B/L TEMPERTURE GRADIENT (C): decreased, cool to cool, proximal to distal, B/L TROPHIC CONDITION-TEXTURE/ELASTICITY/TURGOR/HAIR GROWTH (B): decreased, B/L EDEMA (C): 1/4, B/L PIGMENTATION: pale, B/L Nails NAILS are: Elongated, overg rown, dystrophic, lytic, greater than 3mm thick, discolored and friable with crumbly malodorous subungual debris, with pain on palpation , 1-5 B/L
--- OUTSIDE RECORDS SUMMARY | 2024-05-20 08:30 | XMS_ITS ---
Author Organization [facility] Address [address] [place] [address] Care Team Providers Care Overhead Distribution Engineer Name Role Phone Tyler Luisa Primary Care Provider Nena Ferguson Unavailable [phone] Uvaldo Yung Unavailable [phone] REASON FOR VISIT Pcp- 09/20, At Risk Footcare, Painful Nail(s) aggrevated by shoes and causing difficulty standing/walking, Wart(s) Encounters Encounter Location Date Provider Diagnosis [facility] [address] [place] [address] 05/20/2024 Uvaldo Yung Pain in right foot M79.671 ; Plantar wart B07.0 ; Pain in left foot M79.672 ; Tinea unguium B35.1 ; Pain in left toe(s) M79.675 ; Pain in right toe(s) M79.674 and Unspecified atherosclerosis of [place] arteries of extremities, bilateral legs I70.203 Assessments Encounter Date Diagnosis (ICD Code) Assessment Notes Treatment Notes Treatment Clinical Notes Section Notes 05/20/2024 Pain in right foot (ICD-10 - M79.671) 05/20/2024 Plantar wart (ICD-10 - B07.0) 05/20/2024 Pain in left foot (ICD-10 - M79.672) 05/20/2024 Tinea unguium (ICD-10 - B35.1) 05/20/2024 Pain in left toe(s) (ICD-10 - M79.675) 05/20/2024 Pain in right toe(s) (ICD-10 - M79.674) 05/20/2024 Unspecified atherosclerosis of kn[place] arteries of extremities, bilateral legs (ICD-10 - I70.203) Plan Of Treatment Next Appt Details Follow Up: 2 Months, Reason: Provider Name:Nena Almonte Christine almonte, 08/26/2025 11:30:00 AM, [address] [place] [address], [phone], Procedure Notes * Category Sub-Category Detail Notes Wart Treatment Procedure Verrucae(s) were debrided to pin-point bleeding margins with sterile surgical blade, silver nitrate chemocautery applied, recomm. immune-boosting meds such as zinc, recomm. follow up with topical chemosurgical agents, Pt defers any other forms of tx (80784), CIRCULATION: Any more invasive procedure to wart [...] as necessary. Patient chooses, no pharmaceutical tx (95892) Keratoma Treatment Parring or Cutting o f Benign Hyperkeratotic Lesion(s) 47302 ( >4 Lesions) - The Benign hyperkeratotic lesions, as described above were pared, and/or cut utilizing a sterile #15 blade, tissue nippers, and/or dremel, Q8 Progress Notes * Ainsley DEAN RDOB: 6 (89 yo F)Acc No.[id number]:05/20/2024 Progress Note Patient: Kelsey MCGILL Ainsley R Provider: Jose Anthony DPM :1935 A ge:88 Y S ex:Female Date:05/20/2024 Address:[address] [place] [phone] Pcp:Luisa Scott Subjective: * Chief Complaints: * [...] enies. C ardiovascular: Pacemaker d enies. M GEOLOGIST d enies. W PW d enies. C [...] M79.674 7 . U nspecified atherosclerosis of kn[place] arteries of extremities, bilateral legs - I70.203 [...] as necessary. Patient chooses, no pharmaceutical tx (54514). K eratoma Treatment: Parring or Cutting of [...] Pt defers any other forms of tx (41933), CIRCULATION: Any more invasive procedure to wart deferred due to circulation risk. ? * Procedure Codes: 1 7110 Wart Destruction, 1-14, Modifiers: XS , 27643 DEBRIDE NAIL, 6 OR MORE, Modifiers: XS , 42551 TRIM SKIN LESIONS, OVER 4, Modifiers: XS , Q8 * Follow Up: 2 Months * Images: * The named appointment provid er may or may not be the originator of this progress note, and it is not deemed complete until electronically signed by the appointment provider. Sign off status: Pending * Provider: Jose Anthony DPM Date: 0 05/20/2024 Generated for Ha foy/Hiro/Deon on: 09/26/2024 02:23 PM EST History and Physical Notes * [...]
--- OUTSIDE RECORDS SUMMARY | 2024-10-11 06:00 | XMS_ITS ---
Author Organization [facility] Address [address] [place] [address] Care Team Providers Care Live Ammunition Inspector Name Role Phone Luisa Scott Primary Care Provider Nena Ferguson [phone] Hernandez Encounters Encounter Location Date Provider Diagnosis [address] [address] 10/11/2024 Nena Lora Plan Of Treatment Next Appt Details Provider Name:Nena almonte, 08/26/2025 11:30:00 AM, [address] [place], [address], Progress Notes * Ainsley DEAN RDOB: (89 yo F)Acc No.[id number]:10/11/2024 Progress Note Patient: Kelsey Ainsley MCGILL Provider: Ezequiel Lora DPM :1935 A ge:89 Y S ex:Female Date:10/11/2024 Address:[address] [place] [address] [phone] Pcp:Luisa Scott Subjective: * Chief Complaints: * [address] Hernandez. * Medical History: Objective: * Vitals: Assessment: Plan: * Treatment: * Images: * The named appointment provid er may or may not be the originator of this progress note, and it is not deemed complete until electronically signed by the appointment provider. Sign off status: Pending * Provider: Ezequiel Lora, MICHAEL Date: 0 10/11/2024 Generated for Ha foy/Hiro/Deon on: 1 09/26/2024 02:22 PM EST
--- OUTSIDE RECORDS SUMMARY | 2024-10-18 07:30 | XMS_ITS ---
Author Organization [facility] Address [address] [facility] [place] [address] Care Team Providers Care Dramatic Reader Name Role Phone TylerLuisa Primary Care Provider Nena Ferguson Unavailable [phone] Hernandez Medications Medication SIG (Take, Route, Frequency, Duration) Notes Start Date End Date Status Diovan 80 MG 1 tablet Orally Once a day Active Omeprazole 20 MG 1 capsule Orally Onc e a day; Duration: 30 day(s) Active Metoprolol Tartrate 25 MG 1 tablet with food Orally Twice a day; Duration: 30 day(s) Active Zocor 20 MG 1 tablet in the even ing Orally Once a day Active Alendronate Sodium 70 MG 1 tablet Orally Once a week; Duration: 30 day(s) Active Triamterene-HCTZ 37.5-25 MG 1 tablet in the morning Orally Once a day; Duration: 30 day(s) Not-Taking Norvasc 2.5 MG 1 tablet Orally Once a day; Duration: 30 day(s) Not-Taking Eliquis 5 MG as directed Orally Active Encounters Encounter Location Date Provider Diagnosis [facility] [address] [place] [address] 10/18/2024 Nena Lora Plan Of Treatment Next Appt Details Provider Name:Nena almonte, 08/26/2025 11:30:00 AM, [address] [place], [address], Progress Notes * Ainsley DEAN RDOB: 6 (89 yo F)Acc No.[id number]:10/18/2024 Progress Note Patient: Ainsley SILVERIO Provider: Ezequiel Lora DPM :1935 A ge:89 Y S ex:Female Date:10/18/2024 Address:[address] [place] [address], [id number] Pcp:Luisa Scott Subjective: * Chief Complaints: * [address] Hernandez[address] * Medical History: T ransfusions, Mumps, High blood pressure, Chicken pox. * Medications: T aking Omeprazole 20 MG Capsule Delayed Release 1 capsule Orally Once a day , Taking Diovan 80 MG Tablet 1 tablet Orally Once a day , Taking Alendronate Sodium 70 MG Tablet 1 tablet Orally Once a week , Taking Zocor 20 MG Tablet 1 tablet in the evening Orally Once a day , Taking Metoprolol Tartrate 25 MG Tablet 1 tablet with food Orally Twice a day , Taking Eliquis 5 MG Tablet as directed Orally , Not-Taking/PRN Norvasc 2.5 MG Tablet 1 tablet Orally Once a day , Not-Taking/PRN Triamterene-HCTZ 37.5-25 MG Tablet 1 tablet in the morning Orally Once a day Objective: * Vitals: Assessment: Plan: * Treatment: * Images: * The named appointment provid er may or may not be the originator of this progress note, and it is not deemed complete until electronically signed by the appointment provider. Sign off status: Pending * Provider: Ezequiel Lora DPM Date: 0 10/18/2024 Generated for Ha foy/Hiro/Deon on: 09/26/2024 02:23 PM EST
--- OUTSIDE RECORDS SUMMARY | 2024-11-29 07:30 | XMS_ITS ---
Author Organization [facility] Address [address] [facility] [place] [address] Care Team Providers Care Cipher Expert Name Role Phone Luisa Scott Primary Care Provider Nena Ferguson Unavailable [phone] Medications Medication SIG (Take, Route, Frequency, Duration) Notes Start Date End Date Status Triamterene-HCTZ 37.5-25 MG 1 tablet in the morning Orally Once a day; Duration: 30 day(s) Not-Taking Eliquis 5 MG as directed Orally Active Norvasc 2.5 MG 1 tablet Orally Once a day; Duration: 30 day(s) Not-Taking Zocor 20 MG 1 tablet in the even ing Orally Once a day Active Metoprolol Tartrate 25 MG 1 tablet with food Orally Twice a day; Duration: 30 day(s) Active Diovan 80 MG 1 tablet Orally Once a day Active Alendronate Sodium 70 MG 1 tablet Orally Once a week; Duration: 30 day(s) Active Omeprazole 20 MG 1 capsule Orally Onc e a day; Duration: 30 day(s) Active Encounters Encounter Location Date Provider Diagnosis [facility] [address] [place] [address] 11/29/2024 Nena Lora Plan Of Treatment Next Appt Details Provider Name:Nena almonte, 08/26/2025 11:30:00 AM, [address] [place], [address], Progress Notes * Ainsley DEAN RDOB: [birth year] (89 yo F)Acc No.[id number]:11/29/2024 Progress Note Patient: Ainsley SILVERIO Provider: Ezequiel Lora DPM :1935 A ge:89 Y S ex:Female Date:11/29/2024 Address:[address] [place] [address], [id number] Pcp:Luisa Scott Subjective: * Chief Complaints: * * HPI: A t Risk footcare: Pt States Last PCP Visit: D ate 1 09/10/2023 * Medical History: * Medications: T aking Omeprazole 20 MG [...] * Provider: Ezequiel Lora DPM Date: 0 11/29/2024 Generated for Ha foy/Hiro/Deon on: 09/26/2024 02:23 PM EST History and Physical Notes * HPI (History of Present Illness) Category Sub-Category Detail Notes Category Not es At Risk footcare Pt States Last PCP Visit: Date:
--- NOTE | ~2025-07-27 | CT_ITS ---
CLINICAL HISTORY: fall with head strike, on thinners CT cervical spine without contrast Comparison: None provided Findings: Grade 1 anterolisthesis of the C2 over C3, C3 over C4, C4 over C5. Moderate narrowing of C3-4, severe narrowing of C4-5, C6-7 and C7-T1. C4-5: Severe left and moderate right spondylitic neural foraminal stenosis. C3-4: Moderate to severe left and moderate right spondylitic neural foraminal stenosis. Mild osteopenia. Near-complete osseous fusion of the C5-6 intervertebral disc space. No acute findings on limited view of the intracranial contents. No cervical fluid collections or masses. Biapical pulmonary scarring. C4-5 and C6-7 moderate anterior spurring. Moderate to severe calcified atherosclerotic disease of the proximal internal carotid arteries. IMPRESSION: 1. Grade 1 anterolisthesis of C2 over C3, C3 over C4, and C4 over C5 2. Severe narrowing of C4-5, C6-7, and C7-T1 disc spaces 3. Severe left and moderate right neural foraminal stenosis at C4-5 4. Moderate to severe left and moderate right neural foraminal stenosis at C3-4 5. Near-complete osseous fusion of C5-6 intervertebral disc space 6. No acute cervical spine findings. 7. Moderate to severe calcified atherosclerotic disease of the proximal internal carotid arteries. Consider nonemergent Doppler carotid ultrasound. This document has been electronically signed by: Marbin Friend MD on 07/27/2025 17:13:17
--- NOTE | ~2025-07-27 | XR_ITS ---
CLINICAL HISTORY: fall, hip pain 3 view, pelvis and left hip Comparison: None provided Findings: Mild osteopenia. No significant arthritic change of the hips. Arterial calcifications are present. No fracture or dislocation. IMPRESSION: 1. Mild osteopenia. 2. No acute osseous abnormality. This document has been electronically signed by: Marbin Friend MD on 07/27/2025 16:46:24
--- NOTE | ~2025-07-27 | CT_ITS ---
CLINICAL HISTORY: fall with head strike, on thinners CT head without contrast Comparison: None provided Findings: No intra-axial mass, midline shift, hydrocephalus, or acute hemorrhage. Mild heterogeneous low attenuation in the periventricular white matter. Cavum septum pellucidum and cavum vergae. There is no sinus or mastoid fluid. The orbits are unremarkable. There is no acute fracture. Hyperostosis frontalis interna. IMPRESSION: 1. Mild chronic periventricular microvascular ischemic disease. 2. No acute intracranial findings. This document has been electronically signed by: Marbin Friend MD on 07/27/2025 17:19:46
--- NOTE | ~2025-07-27 | CT_ITS ---
CLINICAL HISTORY: fall, nasal abrasion CT maxillofacial without contrast Comparison: None provided Findings: No acute fractures. Temporomandibular joints are intact. Paranasal sinuses and mastoid air cells clear. Orbits normal. Visualized intracranial contents are within normal limits. No foreign bodies. No nasal fracture identified. IMPRESSION: Unremarkable maxillofacial CT. This document has been electronically signed by: Marbin Friend MD on 07/27/2025 17:20:22
[2025-07-27 13:38] VITALS: BP 148/90; PULSE 78; O2SAT 100
[2025-07-27 13:45] VITALS: BP 151/50; PULSE 60; RESP 18; TEMP 36.6; O2SAT 93; BMI 21.6
--- NOTE | 2025-07-27 13:48 | ECG_ITS ---
Test Reason : IRRG. HR Blood Pressure : */* mmHG Vent. Rate : 52 BPM Atrial Rate : 52 BPM P-R Int : 166 ms QRS Dur : 88 ms QT Int : 406 ms P-R-T Axes : 50 10 43 degrees QTcB Int : 377 ms Sinus bradycardia Otherwise normal ECG When compared with ECG of 25-Aug-2024 11:53, Nonspecific T wave abnormality has replaced inverted T waves in Inferior leads QT has shortened Referred By: Generic ED Physician Electronically Signed By: RADHA HESS
--- OUTSIDE RECORDS SUMMARY | 2025-07-27 14:23 | XMS_ITS | Patient Health Record ---
Author Organization [facility] Address [address] [place] [address] Care Team Providers Care Extractor Operator Name Role Phone German Kitchen MD Primary Care Provider Unavailab Red Young Unavailable [phone] Reason For Referral No Information Medications Medication SIG (Take, Route, Frequency, Duration) Notes Start Date End Date Status Aspir-81 Active Omeprazole Active MoviPrep 100 GM Solution Reconstituted as directed Orally 06/16/2011 Active Zocor Active Dyazide Active Norvasc Active Diovan Active Social History Social History Additional Details Category Social Info Options Details Miscellaneous: Marital status: Problems Problem Type SNOMED Code ICD Code Onset Dates Problem Status W/U Status Risk Notes Problem Information temporarily unavailable Blood in stool (578.1) Active confirmed Problem Information temporarily unavailable Personal history of colonic polyps (V12.72) Active confirmed Problem Information temporarily unavailable Family history of malignant neoplasm of gastrointestinal tract (V16.0) Active confirmed Plan Of Treatment Future Test Test Name Order Date COLONOSCOPY 06/16/2011 Insurance Providers Payer Name Payer Address Payer Phone Subscriber Number Group Number Insured Name Patient Relationship to Insured Coverage Start Date Coverage End Date MEDICARE OF [place] [address] [place] [address] [id number] RENUKA GOLDSMITH Self - patient is the insured PGBA DO NOT USE DO NOT USE [facility] CLAIMS USE [facility] [address] [place] [address] [id number] RENUKA GOLDSMITH Self - patient is the insured Medical (General) History Medical History History ICD Code colon polyps gastroesophageal reflux hypertension hyperlipidemia Denies MO,DM,CVA,Lung disease,renal dise ase diverticulosis internal hemorrhoids Surgical History Surgery Date(Month/Year) complete hysterectomy
--- OUTSIDE RECORDS SUMMARY | 2025-07-27 14:23 | XMS_ITS | Patient Health Record ---
[facility] ju[facility] DanielsNikhil Address [address] [facility] [place] [address] Care Team Providers Care Second Hand Name Role Phone Luisa Scott Primary Care Provider Nena Ferguson Unavailable [phone] Allergies No Known Allergies Reason For Referral No Information Medications Medication SIG (Take, Route, Frequency, Duration) Notes Start Date End Date Status Sertraline HCl 50 MG Oral; Duration: 90 Days Active Eliquis 5 MG as directed Orally Active Metoprolol Tartrate 25 MG 1 tablet with food Orally Twice a day; Duration: 30 day(s) Active Zocor 20 MG 1 tablet in the even ing Orally Once a day Active Omeprazole 20 MG 1 capsule Orally Onc e a day; Duration: 30 day(s) Active Triamterene-HCTZ 37.5-25 MG 1 tablet in the morning Orally Once a day; Duration: 30 day(s) Not-Taking Norvasc 2.5 MG 1 tablet Orally Once a day; Duration: 30 day(s) Not-Taking Alendronate Sodium 70 MG 1 tablet Orally Once a week; Duration: 30 day(s) Not-Taking Diovan 80 MG 1 tablet Orally Once a day Not-Taking Donepezil HCl 10 MG Oral; Duration: 90 Days Active Memantine HCl 10 MG Oral; Duration: 90 Days Active Immunizations Vaccine Route Administration Date Status Comme nts Influenza Unknown 06/06/2018 Administered Influenza Unknown 05/28/2024 Administered Social History Tobacco Use: Social History Observation Description Date Details (start date - stop date) Never Smoker NA - NA Alcohol Screen Question Answer Notes Did you have a drink containing alcohol in the p ast year? No Points 0 Interpretation Negative Tobacco use other than smoking: Question Answer Notes Are you an other tobacco user? No Tobacco Control (Standard) Question Answer Notes Tobacco use: Nonsmoker Additional Findings: Tobacco non-user Current no nsmoker AUDIT-C (Standard) Question Answer Notes Did you have a drink containing alcohol in the p ast year? 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 Vital Signs Blood pressure diastolic 80 mm Hg 05/21/2025 Height 5 ft 3 in in 05/21/2025 Blood pressure systolic 120 mm Hg 05/21/2025 Weight 145 lbs 05/21/2025 BMI 25.68 kg/m2 05/21/2025 Encounters Encounter Location Date Provider Diagnosis [address] [address] 02/11/2025 Nena Perica Pain in right foot M79.671 ; Plantar wart B07.0 ; Pain in left foot M79.672 ; Tinea unguium B35.1 ; Pain in left toe(s) M79.675 ; Pain in right toe(s) M79.674 and Unspecified atherosclerosis of [place] arteries of extremities, bilateral legs I70.203 [facility] [address] 05/21/2025 Nena Perica Pain in right foot M79.671 ; Plantar wart B07.0 ; Pain in left foot M79.672 ; Tinea unguium B35.1 ; Pain in left toe(s) M79.675 ; Pain in right toe(s) M79.674 and Unspecified atherosclerosis of [place] arteries of extremities, bilateral legs I70.[address] [address] 11/29/2024 Nena Perica Assessments Encounter Date Diagnosis (ICD Code) Assessment Notes Treatment Notes Treatment Clinical Notes Section Notes 02/11/2025 Pain in right foot (ICD-10 - M79.671) 05/21/2025 Pain in right foot (ICD-10 - M79.671) 02/11/2025 Plantar wart (ICD-10 - B07.0) 05/21/2025 Plantar wart (ICD-10 - B07.0) 02/11/2025 Pain in left foot (ICD-10 - M79.672) 05/21/2025 Pain in left foot (ICD-10 - M79.672) 02/11/2025 Tinea unguium (ICD-10 - B35.1) 05/21/2025 Tinea unguium (ICD-10 - B35.1) 05/21/2025 Pain in left toe(s) (ICD-10 - M79.675) 02/11/2025 Pain in left toe(s) (ICD-10 - M79.675) 02/11/2025 Pain in right toe(s) (ICD-10 - M79.674) 05/21/2025 Pain in right toe(s) (ICD-10 - M79.674) 05/21/2025 Unspecified atherosclerosis of [place] arteries of extremities, bilateral legs (ICD-10 - I70.203) 02/11/2025 Unspecified atherosclerosis of [place] arteries of extremities, bilateral legs (ICD-10 - I70.203) Plan Of Treatment Pending Test Test Name Order Date *Uric Acid, Serum 11/29/2017 *CBC With Differential/Platelet 11/30/19 18 ESR 11/29/2017 X ray : Foot, right 3V 11/29/2017 94567-PTGCAHM NAIL, 6 OR MORE 02/18/2013 90191-UPFTGCE NAIL, 6 OR MORE 05/22/2013 31147-WVVTBQV NAIL, 6 OR MORE 09/11/2013 00240-QTSOKYS NAIL, 6 OR MORE 12/25/2013 50165-ESYQPSA NAIL, 6 OR MORE 03/26/2014 72726-OCGHBPV NAIL, 6 OR MORE 06/23/2014 62764-XDRAVNS NAIL, 6 OR MORE 03/28/2018 63841-UBJQGYK NAIL, 6 OR MORE 06/06/2018 57579-RESALYK NAIL, 6 OR MORE 08/07/2018 45312-Vrwi Destruction, 1-14 06/06/2018 21106-Jphz Destruction, 1-14 08/07/2018 13594-Lqmq Destruction, 1-14 05/22/2013 01780-Totu Destruction, 1-14 02/18/2013 25598-Tvye Destruction, 1-14 03/28/2018 97257-Nseb Destruction, -14 09/11/2013 14020-Nsiptama Plate 06/23/2014 06612- Debride <25 sq cm 05/22/2013 72659- Debride <25 sq cm 06/23/2014 97242- Debride <25 sq cm 12/25/2013 89434-XOLG SKIN LESIONS, OVER 4 03/28/20 18 39292-CVBE SKIN LESIONS, OVER 4 08/07/20 18 42105-QXDS SKIN LESIONS, OVER 4 06/06/20 18 Next Appt Details Provider Name:Nena almonte, 08/26/2025 11:30:00 AM, [address] [facility], [place], [address], Insurance Providers Payer Name Payer Address Payer Phone Subscriber Number Group Number Insured Name Patient Relationship to Insured Coverage Start Date Coverage End Date Medicare National [employer] [address] [facility] [place] [address] [id number] Ainsley Dean Self - patient is the insured for Life [address] [place] [address] [id number] Felipe Dean Spouse - patient is the spouse of the insured Medical (General) History Medical History History ICD Code transfusions mumps high blood pressure chicken pox Surgical History Surgery Date(Month/Year) hysterectomy 1982 Hospitalization History Reason Date(Month/Year) [facility] - feet swelling, blood clot left leg 06/2018
--- OUTSIDE RECORDS SUMMARY | 2025-07-27 14:23 | XMS_ITS | Data Portability ---
Author Organization [place] [facility] Address [address] [place] [address] Assessment Encounter Date Assessment Date Assessment LastModified [...] pain/tenderness, no redness/warmth, she is on eliquis oil heaterman, do not suspect any clotting IT band [...] dtrs thanks us for our visit today. [email or web address] Not available 02/21/2022 15:54:36 Plan of Treatment [...] Total Hysterectomy completed NACHO Olivares [address], [place], [address], [place] [facility] 02/21/2022 14:52:28 Imaging Results None recorded. Procedure [...] Not Available Vitals Date Recorded Oxygen saturation Respiratory rate Body temperature Heart rate Systolic And Diastolic Provider Name and Address Organization Details Last Updated DateTime 2 97 % 18 /min 98.7 [degF] 60 /min 140/78 mm[Hg] Not Available [facility] 2 14:52:13 Social History Question Answer Notes LastModified by Organizat ion Details LastModified Time Tobacco Smoking Status Never Smoker NACHO Olivares [address], [place], [address], [place] [facility] 02/21/2022 14:52:15 Has Tobacco Cessation Counseling Been Provided? No Information not available 02/21/2022 Sex: Unknown Functional Status Question Answer Note LastModified by Organizat ion Details LastModified Time Do you use any illicit or recreational drugs? No Information not available 02/21/2022 Do you or have you ever used any other forms of tobacco or nicotine? No Information not available 02/21/2022 What is your level of alcohol consumption? None Information not available 02/21/2022 Mental Status None recorded. Family History Relationship Description Onset Age of this Age Resolved Age Notes LastModified by Organization Details LastModified Time Mother Malignant neoplasm of colon crumplik Not available 2021 14:51:56 Medical History Condition Response Diabetes N Coronary Artery Disease N CHF N Parkinson's Disease N Cancer N Stroke N Dementia Y Hypothyroidism N Asthma N COPD N Depression Y High Cholesterol Y Rheumatoid Arthritis N Pulmonary Embolism Y Hypertension Y Osteoporosis N A-fib Y Kidney Disease Y Gynecological HistoryNo gynecological history recorded. 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 Health Concerns Section Related Observation LastModified by Organization Detai ls LastModified Time None Recorded Concern Status LastModified by Organization Details LastModified Time None Recorded Advance Directives Directive None Recorded Payers Insurance Date Sequence Insurance Name Policy Number Policy West Covered Member ID West Member ID Guarantor Name 03/02/2022 1 [place] [employer] [place] Ainsley Dean [id number] Ainsley Dean 03/02/2022 2 FOR LIFE ( - MEDICARE SUPPLEMENT) Aisnley Dean [id number] Ainsley Dean 02/21/2022 1 *SELF PAY* Ainsley Dean [id number] Ainsley Dean Notes Date Note Type Note Provider Name and Address Organization Details Recorded Time 02/21/2022 text/html 86 YO F new to dh and new to providershe is being seen [...] sxs today. NACHO Olivares [address], [place], [address], [place] [facility] 02/25/2022 12:15:07 OBGyn Episode No OBEpisode recorded.
[2025-07-27 14:56] LABS: Hematocrit 40.6 % (37.0-47.0); Hemoglobin 13.1 g/dl (12.0-16.0); Imm Gran Abs Auto 0.05 X10*3/uL (0.00-0.03); Imm Gran Pct Auto 0.6 % (0.0-0.4); Lymphocytes Absolute Auto 0.6 X10*3/uL (1.2-4.9); MANUAL DIFF FLAG NO; Mean Corpuscular HGB Conc 32.3 g/dl (31.0-35.0); Mean Corpuscular Hemoglobin 28.7 pg (27.0-33.0); Mean Corpuscular Volume 89.0 fL (80.0-98.0); NRBC Abs Auto 0.000 X10*3/uL (0.0-0.012); NRBC Pct Auto 0.0 /100WBC (0.0-0.2); Platelet Count 209 X10*3/uL (160-400); Red Blood Count 4.56 X10*6/uL (4.20-5.50); White Blood Count 8.1 X10*3/uL (4.8-10.8)
[2025-07-27 15:03] LABS: INTERNATIONAL NORM RATIO 1.3 (0.9-1.1); Prothrombin Time 15.3 SEC (11.2-13.5)
[2025-07-27 15:11] LABS: Alanine Aminotransferase 10 U/L (0-31); Albumin Level 3.7 g/dL (3.5-5.0); Alkaline Phosphatase 127 U/L (39-117); Anion Gap 13 (12-20); Aspartate Amino Transferase 26 U/L (5-31); Blood Urea Nitrogen 26 mg/dL (9-16); Calcium 9.4 mg/dL (8.4-10.2); Carbon Dioxide 28 mmol/L (22-29); Chloride 106 mmol/L (96-108); Creatinine Clr Calc Pharmacy 24.7; Estimated Glomerular Filt Rate 38; Potassium 4.3 mmol/L (3.3-5.1); Sodium 143 mmol/L (135-145); Total Protein 7.0 g/dL (6.5-8.0)
--- NOTE | 2025-07-27 15:15 | ED_ITS ---
HPI - General Adult General Chief complaint: Fall Stated complaint: WIT FALL, L HIP PAIN, +THINNERS/HS Time Seen by Provider: 07/27/25 15:07 Source: patient, family, EMS, RN notes reviewed and old records reviewed Mode of arrival: EMS Limitations: no limitations History of Present Illness ED Provider: [place] HPI narrative: Patient is an 89-year-old female with past medical history of Alzheimer's dementia, hypertension, AFib on Eliquis presenting to the emergency department after a fall at home this morning. Patient's daughter states that she was in the same room but did not witnessed the patient fall. She believes patient fell while attempting to stand from sitting on a couch and that she likely got her feet caught upon standing. Patient denies feeling dizzy or lightheaded prior to fall. Daughter states that she did strike her head during the fall and has a small abrasion to her nose. She notes that when EMS arrived and patient was assisted off the floor, she complained of some left lower extremity pain. Patient is currently denying any complaint of pain. Denies any headache, neck or back pain, vision changes. MD complaint: Hip pain Onset (ago): hour(s) Related Data Home Medications ?Medication ?Instructions ?Recorded ?Confirmed apixaban 5 mg tablet (Eliquis) 5 mg PO BID 08/23/24 donepezil 10 mg tablet 10 mg PO DAILY 08/23/2407/29 memantine 10 mg tablet 10 mg PO BID 08/23/24 metoprolol tartrate 25 mg tablet 25 mg PO BID 08/23/24 08/23/24 omeprazole 20 mg capsule,delayed 20 mg PO DAILY 08/23/24 release sertraline 100 mg tablet 100 mg PO DAILY 08/23/24 simvastatin 20 mg tablet 20 mg PO BEDTIME 08/23/24 valsartan 80 mg tablet 80 mg PO DAILY 08/23/2407/29 Previous Rx's ?Medication ?Instructions ?[place]ed [place] [facility] [place]1 ea 02/26/24 clindamycin HCl 300 mg capsule 300 mg PO Q6H #28 caps 08/25/24 levofloxacin 500 mg tablet 500 mg PO Q24H #14 tabs oxycodone 5 mg tablet 2.5 mg (1/2 x 5 mg) PO Q8H P RN 09/16/24 pain #9 tabs Allergies Allergy/AdvReac Type Severity Reaction Status Date / Time No Known Allergies (No Known Allergy Verified 07/27/25 13:47 Allergies*) Review of Systems 2 Review of Systems: as per hpi Yes all other systems are reviewed and are negative Constitutional: Constitutional: Reports as per HPI [facility] Past Medical History Medical History (Updated 07/27/25 @ 17:30 by Sommer Nuñez NP) HTN (hypertension) Afib Alzheimer's dementia Social History Social History Household Members: Caregiver Housing: House Do you presently have visiting nurse or other home services: No Alcohol intake: former Patient Tobacco Use Status: Never used Tobacco Smoked in Last 30 Days: No Use of substances other than those prescribed or required for medical reasons: No Advance Directives: Yes Advance Directives on File: Yes Advance Directives Date on File: 08/23/24 service: No Physical Exam ED Vital Signs: Vital Signs - 24 hr 07/27/25 13:45 07/27/25 15:19 Temperature 97.8 F 98.3 F Pulse Rate 60 62 Respiratory Rate 18 16 Blood Pressure 151/50 H 122/78 Pulse Oximetry 93 96 Oxygen Delivery Method Room Air Room Air BMI result Body Mass Index 21.6 Vital signs have been reviewed and appear to be correct. Blood pressure normal. Heart rate normal. Respiratory rate normal. Temperature normal. Oxygen saturation normal. Const General: cooperative, healthy appearing and no acute distress Orientation/consciousness: oriented to person and oriented to place [facility] Head: Yes normocephalic and Yes atraumatic Ears: hearing grossly normal bilaterally, external ears normal, TM's normal bilaterally and EAC's normal General nose exam: Normal nasal mucous membranes and turbinates present and Other nasal findings present (superficial 2mm abrasion to bridge of nose) Face and sinus: Yes face symmetric Mouth: oropharynx normal and moist mucous membranes Throat: Yes uvula midline Eyes Pupils: Equal, round and reactive pupils present Neck Neck: Yes normal visual inspection and Yes supple Chest Chest palpation & inspection: normal inspection of the chest and normal palpation of entire chest wall Resp Effort & Inspection: normal respiratory effort and able to speak in complete sentences Auscultation: clear to auscultation bilaterally Cardio Rate: regular rate Rhythm: regular rhythm Heart sounds: S1 normal heart sound present and S2 normal heart sound present GI Palpation (GI): Soft to palpation and nontender Auscultation: normoactive bowel sounds General: Yes no CVA tenderness Back/Spine/Pelvis Back: no CVA tenderness Cervical Spine: normal cervical lordosis, cervical ROM normal, No Cervical spine tenderness and No step off deformity Thoracic/Lumbar Spine: thoracic and lumbar spine normal to inspection, No thoracic spinal tenderness and No lumbar spinal tenderness Pelvis: no pain with anterior-posterior compression and no pain with lateral compression Skin General skin exam: elasticity normal and turgor normal Neuro General: oriented to person, oriented to place, moves all extremities, no focal motor deficits and CN's II-XI intact bilaterally Cranial nerves: Yes Equal, round and reactive pupils present Cognition (Neuro): normal cognition Extrem General: Yes full ROM, Yes no pedal edema and Yes no calf tenderness Psych Mental Status: mental status grossly normal Affect: normal affect Thought process: Normal thought process present Medications Administered Discontinued Medications Generic Name Dose Route Start Last Admin Trade Name Freq PRN Reason Stop Dose Admin Acetaminophen 650 mg 07/27/25 16:22 07/27/25 16:52 Acetaminophen 325 Mg Tablet PO 07/27/25 16:23 650 mg ONCE ONE Administration Medical Decision Making Medical Decision Making [facility] Narrative: Patient is an 89-year-old female with past medical history of Alzheimer's dementia, hypertension, AFib on Eliquis presenting to the emergency department after a fall at home this morning. On exam patient is awake, A+Ox3, VS WNL, afebrile, normal neurological exam without focal deficits, physical exam findings as above. Given reported symptoms and physical exam findings, initial differential includes but is not limited to ICH, skull or cervical vertebral fracture or subluxation, facial bones fracture, left hip contusion vs fracture, cardiac arrhythmia, electrolyte abnormality. Labs grossly within normal limits. EKG shows sinus sinus bradycardia. X-ray left hip/pelvis notable for no acute fractures. CT head is without evidence of ICH or skull fracture. CT facial bones is without evidence of acute fracture. CT Cervical spine is notable for grade 1 anterolisthesis of C2 over C3, C3 over C4, and C4 over C5, narrowing of disc spaces, foraminal stenosis, osseous fusion of C5-6 but without any acute abnormalities. My interpretation is in agreement with the radiologist's interpretation. Results discussed with patient and daughters and all questions answered. Advised Tylenol, ice as needed. Follow up with PCP. Return precautions discussed. Patient and daughters verbalized understanding of and agreement with plan. Differential Diagnosis Differential Diagnoses: The differential diagnosis associated with the presentation includes as per [facility] [place] Admission/Observation Consideration of admission/observation: Escalation of care including admission/observation considered Patient would have been admitted to the hospital and transferred to appropriate facility had their clinical presentation warranted hospital admission. Lab Data [facility] Lab Attestation statement: I reviewed the patient's lab results. as per [facility] [place] 07/27/25 14:50 07/27/25 14:50 Labs: Lab Results 07/27/25 Range/Units 14:50 WBC 8.1 (4.8-10.8) X10*3/uL RBC 4.56 D (4.20-5.50) X10*6/uL Hgb 13.1 (12.0-16.0) g/dl Hct 40.6 (37.0-47.0) % MCV 89.0 (80.0-98.0) fL MCH 28.7 (27.0-33.0) pg MCHC 32.3 (31.0-35.0) g/dl RDW 14.1 (11.0-16.0) % Plt Count 209 (160-400) X10*3/uL MPV 8.8 L (9.4-12.3) fL Immature Gran % (Auto) 0.6 H (0.0-0.4) % Neut % (Auto) 82.6 H (45-73) % Lymph % (Auto) 6.8 L (20-40) % [place] % (Auto) 5.9 (2-11) % Eos % (Auto) 3.4 (0-4) % Baso % (Auto) 0.7 (0-2) % Lymph # (Auto) 0.6 L (1.2-4.9) X10*3/uL [place] # (Auto) 0.5 (0.1-1.2) X10*3/uL Eos # (Auto) 0.3 (0.0-0.4) X10*3/uL Baso # (Auto) 0.1 (0.0-0.2) X10*3/uL Abs Immat Gran (auto) 0.05 H (0.00-0.03) X10*3/uL Absolute Neuts (auto) 6.7 (2.0-8.3) x10*3/uL Absolute Nucleated RBC 0.000 (0.0-0.012) X10*3/uL Nucleated RBC % (auto) 0.0 (0.0-0.2) /100WBC PT 15.3 H (11.2-13.5) SEC INR 1.3 H (0.9-1.1) Sodium 143 (135-145) mmol/L Potassium 4.3 D (3.3-5.1) mmol/L Chloride 106 (96-108) mmol/L Carbon Dioxide 28 (22-29) mmol/L Anion Gap 13 (12-20) BUN 26 H (9-16) mg/dL Creatinine 1.33 (0.5-1.4) mg/dL Estim Creat Clear Calc 24.7 Estimated GFR 38 Random Glucose 93 (60-115) mg/dL Calcium 9.4 D (8.4-10.2) mg/dL Total Bilirubin 0.4 (0.0-1.0) mg/dL AST 26 (5-31) U/L ALT 10 (0-31) U/L Alkaline Phosphatase 127 H (39-117) U/L Total Protein 7.0 (6.5-8.0) g/dL Albumin 3.7 (3.5-5.0) g/dL Independent Interpretation I performed an independent interpretation of an: EKG (sinus bradycardia, rate 52bpm, normal CA interval and QTc), Plain X-Ray and CT Scan Interpretation: No acute fracture noted on left hip/ pelvis x-ray. Radiology Impression Discussion of test interpretation with radiology: I have reviewed the radiologist's reading. Radiologist Impression: 3 view, pelvis and left hip Comparison: None provided Findings: Mild osteopenia. No significant arthritic change of the hips. Arterial calcifications are present. No fracture or dislocation. IMPRESSION: 1. Mild osteopenia. 2. No acute osseous abnormality. IMPRESSION: 1. Grade 1 anterolisthesis of C2 over C3, C3 over C4, and C4 over C5 2. Severe narrowing of C4-5, C6-7, and C7-T1 disc spaces 3. Severe left and moderate right neural foraminal stenosis at C4-5 4. Moderate to severe left and moderate right neural foraminal stenosis at C3-4 5. Near-complete osseous fusion of C5-6 intervertebral disc space 6. No acute cervical spine findings. 7. Moderate to severe calcified atherosclerotic disease of the proximal internal carotid arteries. Consider nonemergent Doppler carotid ultrasound. IMPRESSION: 1. Mild chronic periventricular microvascular ischemic disease. 2. No acute intracranial findings. IMPRESSION: Unremarkable maxillofacial CT. Independent Historian Clinical information obtained from an independent historian. History obtained from or confirmed by: Other (daughter) External Record Review External record reviewed: Inpatient record, Office record and Outpatient record Discharge Plan Discharge Clinical Impression: Abrasion of nose Qualifiers: Encounter type: initial encounter Qualified Code(s): S00.31XA - Abrasion of nose, initial encounter Contusion of hip, left Qualifiers: Encounter type: initial encounter Qualified Code(s): S70.02XA - Contusion of left hip, initial encounter Fall Qualifiers: Encounter type: initial encounter Qualified Code(s): W19.XXXA - Unspecified fall, initial encounter Patient Disposition: Home, Self-Care Instructions: Abrasion (ED), Contusion in Adults (ED), Fall Prevention for Older Adults (ED), Hip Contusion (ED) Additional Instructions: You were evaluated in the emergency department today for injuries after a fall. Your imaging did not show evidence of any fractures or bleeding in your brain. You may feel more sore tomorrow, this is normal after a fall. We recommend that you take 650 mg of Tylenol every 6 hours as needed for pain. You can also apply ice to painful areas for 10-15 minutes at a time several times daily, using caution not to apply ice directly to your skin. Follow up with your primary care provider as needed. Return to the emergency department with new or concerning symptoms. Prescriptions: No Action (DME) Ultra-Light Rollator Misc See Rx Instructions .Route Qty: 1 0RF Rx Instructions: As directed donepezil 10 mg tablet 10 mg PO DAILY sertraline 100 mg tablet 100 mg PO DAILY valsartan 80 mg tablet 80 mg PO DAILY simvastatin 20 mg tablet 20 mg PO BEDTIME omeprazole 20 mg capsule,delayed release(DR/EC) 20 mg PO DAILY memantine 10 mg tablet 10 mg PO BID metoprolol tartrate 25 mg tablet 25 mg PO BID Eliquis 5 mg tablet 5 mg PO BID levofloxacin 500 mg Tablet 500 mg PO Q24H Qty: 14 0RF clindamycin HCl 300 mg capsule 300 mg PO Q6H Qty: 28 0RF oxycodone 5 mg tablet 2.5 mg PO Q8H PRN (Reason: pain) Qty: 9 0RF Rx Instructions: Partial Fill upon patient request. Print Language: Frisian
[2025-07-27 15:19] VITALS: BP 122/78; PULSE 62; RESP 16; TEMP 36.8; O2SAT 96
[2025-07-27 17:54] VITALS: BP 122/78; PULSE 62; RESP 16; TEMP 36.8; O2SAT 96
== END 2025-07-27 17:57 | disposition home or self-care (01) ==
PROVIDERS: Emergency Provider Emergency Medicine Emergency Medical Services; PCP Nurse Practitioner Family
DX: S00.31XA Abrasion of nose, initial encounter (principal); S70.02XA Contusion of left hip, initial encounter; W19.XXXA Unspecified fall, initial encounter; Y93.9 Activity, unspecified; Y92.009 Unspecified place in unspecified non-institutional (private) residence as the place of occurrence of the external cause; R00.1 Bradycardia, unspecified; R94.31 Abnormal electrocardiogram [ECG] [EKG]; M16.12 Unilateral primary osteoarthritis, left hip; I10 Essential (primary) hypertension; I48.91 Unspecified atrial fibrillation; Z79.01 Long term (current) use of anticoagulants
CPT/HCPCS: 36415; 70450; 70486; 72125; 73502; 80053; 85025; 85610; 93005; 99284; 99285

== ENCOUNTER → 2025-07-27 13:48 | Outpatient (BNV) | payer MEDICARE, OTHER, SELFPAY | PROVIDERS: Emergency Provider Emergency Medicine Emergency Medical Services; PCP Nurse Practitioner Family; Visit Provider Internal Medicine | DX: R00.1 Bradycardia, unspecified (principal) | CPT/HCPCS: 93010 ==

== ENCOUNTER → 2025-07-27 15:14 | Outpatient (BNV) | payer MEDICARE, OTHER, SELFPAY | PROVIDERS: Emergency Provider Emergency Medicine Emergency Medical Services; PCP Nurse Practitioner Family; Visit Provider Radiology Diagnostic Radiology | DX: M48.02 Spinal stenosis, cervical region (principal); M99.21 Subluxation stenosis of neural canal of cervical region; I65.29 Occlusion and stenosis of unspecified carotid artery; S00.31XA Abrasion of nose, initial encounter; S09.90XA Unspecified injury of head, initial encounter; I67.82 Cerebral ischemia; M25.552 Pain in left hip; M85.88 Other specified disorders of bone density and structure, other site; Z04.3 Encounter for examination and observation following other accident | CPT/HCPCS: 70450; 70486; 72125; 73502 ==